=== PATIENT | male | born 1960 | race Caucasian/White ===

== ENCOUNTER → 2023-11-16 10:06 | Outpatient (REF) | payer OTHER, SELFPAY | LOC: DHCBC MAIN 10:06 | PROVIDERS: ATTENDING PHYSICIAN Internal Medicine Cardiovascular Disease; FAMILY PHYSICIAN Family Medicine | DX: I25.5 Ischemic cardiomyopathy (principal); I25.10 Atherosclerotic heart disease of native coronary artery without angina pectoris; E78.5 Hyperlipidemia, unspecified; I25.2 Old myocardial infarction; E78.1 Pure hyperglyceridemia; R00.2 Palpitations; I48.0 Paroxysmal atrial fibrillation | CPT/HCPCS: 93306 ==

== ENCOUNTER 2024-05-13 16:29 | Emergency (ER) | payer SELFPAY ==
[2024-05-13 16:34] VITALS: BP 151/83
--- NOTE | 2024-05-13 17:57 | ED.GENMED ---
History of Present Illness
General
Chief Complaint: Skin Surface Trauma
Source: patient
Exam Limitations: none
Time Seen by Provider: 05/13/24 17:27
Nursing documentation reviewed up to this point in time: agreed with
History of Present Illness
History of Present Illness:
63 y/o M R hand dominant
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
pt is on eliquis for h/o [place]/hld
his bleeding is controlled with dressing
normal ROM
no significant pain
tetanus unknown
Past History
Past History
ED Past Medical History: CAD, Hypercholesterolemia, [place] and Psychiatric (Anxiety)
ED Past Surgical History: Cardiac (stents X 2) and Tonsilectomy
Social History
Tobacco: Non-smoker
Alcohol: None
Drug: None
Personal:
Living: with family
Review of Systems
Review of Systems
Allergies reviewed?: Yes
All Other Systems: Not applicable
Phy Exam
Physical Exam
Physical Exam:
GENERAL: Alert , in no apparent distress
cv: cap refill intact
NEUROLOGICAL: Alert and oriented, no focal neuro deficits, normal sensation and strength
SKIN: Warm and dry,
pt has an oval shpaed skin avulsion to the distal right thumb fingertip, avoiding the nail plate
aprox 0.75 x 0.25 cm
MUSCULOSKELETAL: right thumb skin avulsion
full ROM
PSYCH: Normal and appropriate interaction.
Course
Orders/Labs/Results
Orders:
Orders
05/13/24 17:44
Tetanus/Diphth/Acelpertussis [Adacel] 0.5 ml IM .ONCE ONE
Vital Signs
Initial and Last Documented VS:
Initial Vital Signs
Pulse Resp BP Pulse Ox
72 20 151/83 98
05/13/24 16:34 05/13/24 16:34 05/13/24 16:34 05/13/24 16:34
Last Documented Vital Signs
Pulse Resp BP Pulse Ox
59 20 125/67 98
05/13/24 18:21 05/13/24 16:34 05/13/24 18:21 05/13/24 16:34
MDM/Problems Addressed
Differential Diagnosis Includes:
skin avulsion, laceration, frature
MDM/Problems Addressed:
63 y/o F with righ thand dominance
on eliquis
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
bleeding ctonrolled
pt has some oozing when dressing removed
full ROM
superfiical, not to bone
gel foam dressing applied after irrigation
bleeding controlled
tetanus updated
d/c home
note patient reutrned x 2 after he bled through his dressings
the 1st time i reapplied the gel foam after using a finger tourniquet, pt was observed and then d/c home but didn't get very far before returning with more bleeding again
it was not severe, just soaked somewhat on top of the gauze
this time , i used finger tourniquet and then it was dry, glued it and applied sterristrip and dressing
ptwas obserrved anddid not bleed through
d/c home
*Critical Care Note
Total Time (30-74mins, 75-104mins- exclusive of procedures): Not Applicable
ED Attending Note
-
Portions of this chart may have been created with voice recognition software.� Occasional wrong word or��sound alike� substitutions may have occurred due to the inherent limitations of voice recognition software.
Discharge Plan
Departure
Patient Disposition: Home (Routine Discharge)
Date of Disposition: 05/13/24
Time of Disposition: 18:02
Patient with high blood pressure during this ER visit?: Yes
Covid-19: Not Applicable
Discharge Problem:
Avulsion of skin of right thumb
Instructions: Wound Care (DC)
Prescriptions:
No Action
atorvastatin 40 MG tablet
40 mg PO QPM Qty: 90 3RF
carvedilol 6.25 MG tablet
6.25 mg PO BID Qty: 180 3RF
aspirin 81 MG tablet,chewable
81 mg PO DAILY 0RF
lisinopril 2.5 MG tablet
2.5 mg PO BID Qty: 180 3RF
omega-3 acid ethyl esters [Lovaza] 1 GM capsule
2 cap PO BID
colchicine [Colcrys] 0.6 mg tablet
0.6 mg PO BID 2 Days Qty: 4 0RF
cephalexin 500 mg capsule
500 mg PO QID 5 Days Qty: 20 0RF
Referrals:
Simone Gómez MD [Family Provider] -
Stand Alone Forms: Return to Work
Activity Restrictions/Additional Instructions:
LEAVE THE DRESSING ON FOR 2 DAYS IF YOU CAN.
AVOID GETTING IT WET UNTIL THEN
THEN YOU CAN TAKE TH EDRESSING OFF AND GET YOUR HAND WET NORMALLY
NO WORK FOR TODAY, TOMORROW AND WEDNESDAY UNTIL THE DRESSING IS OFF
RETURN FOR: SEVERE PAIN, SIGNIFICANT BLEEDING, OR ANY CONCNER,S
Interventions
Interventions:
*Risk Screen - Suicide Last Done: 05/13/24 18:18
*General Assessment Last Done: 05/13/24 18:18
*Neglect/Abuse Screening Last Done: 05/13/24 18:18
ED- Fall Risk Assessment Last Done: 05/13/24 18:18
*ED COVID-19 Vaccine History Last Done: 05/13/24 18:18
*Nursing Disposition Last Done: 05/13/24 18:21
ED-Skin Assessment Last Done: 05/13/24 18:16
Discharge Date and Time
Discharge Date/Time: 05/13/24 18:27
Print Language: HEBREW
[2024-05-13] MEDS: ADACEL 0.5 ML IM (18:13)
[2024-05-13 18:17] VITALS: BMI 38.2
[2024-05-13 18:21] VITALS: BP 125/67
== END 2024-05-13 18:27 | disposition home or self-care (01) ==
LOC: EMR 16:29
PROVIDERS: EMERGENCY PHYSICIAN Student in an Organized Health Care Education/Training Program; FAMILY PHYSICIAN Family Medicine
DX: S61.001A Unspecified open wound of right thumb without damage to nail, initial encounter (principal); R03.0 Elevated blood-pressure reading, without diagnosis of hypertension; W31.89XA Contact with other specified machinery, initial encounter; Y93.89 Activity, other specified; Y92.512 Supermarket, store or market as the place of occurrence of the external cause; Y99.0 Civilian activity done for income or pay; Z23 Encounter for immunization; I25.10 Atherosclerotic heart disease of native coronary artery without angina pectoris; E78.00 Pure hypercholesterolemia, unspecified; F41.9 Anxiety disorder, unspecified; I25.2 Old myocardial infarction; Z79.01 Long term (current) use of anticoagulants; Z95.5 Presence of coronary angioplasty implant and graft; Z88.2 Allergy status to sulfonamides; Z91.013 Allergy to seafood
CPT/HCPCS: 99282; 90471; 90715

== ENCOUNTER 2024-12-20 14:01 | Emergency (ER) | payer OTHER, SELFPAY ==
[2024-12-20 14:10] VITALS: BP 122/77
[2024-12-20 14:34] VITALS: BMI 38.0
--- NOTE | 2024-12-20 14:44 | ED.GENMED ---
History of Present Illness
General
Chief Complaint: Heart Rate Problem
Source: patient and spouse
Exam Limitations: none
Time Seen by Provider: 12/20/24 14:23
Nursing documentation reviewed up to this point in time: agreed with
History of Present Illness
History of Present Illness:
64-year-old male with a past medical history as noted presents to the ER for evaluation of palpitations/tachycardia. Patient reports symptoms started this afternoon around 1:30 PM while he was sitting at his desk. He says that he felt palpitations
and some mild lightheadedness. He says that his heart rate was erratic and elevated. Came to the emergency room for assessment with persistent symptoms however since arrival symptoms have improved. Denies any associated chest pain or shortness of
breath. Denies any recent illness. He has some chronic leg swelling but no acute change. He does have a history of CAD status post stents, sees Dr. Ford for cardiology. EKG on arrival shows atrial fibrillation� patient does not believe he has
a history of A-fib but he does take Eliquis 5 mg twice daily 'because Dr. Ford will let me stop it.' He has been seen multiple times in this ER for palpitations/tachycardia but no clear diagnosis of A-fib noted.
Past History
Past History
ED Past Medical History: CAD, Hypercholesterolemia, [place] and Psychiatric (Anxiety)
ED Past Surgical History: Cardiac (stents X 2) and Tonsilectomy
Social History
Tobacco: Non-smoker
Alcohol: None
Drug: None
Personal:
Living: with family
Review of Systems
Review of Systems
All Other Systems: ROS reviewed and negative except as documented in HPI and ROS
Respiratory: Denies trouble breathing
Cardiac: Reports palpitations; Denies chest pain or syncope
ABD/GI: Denies abdominal pain, nausea or vomiting
: Denies flank pain
Musculoskeletal: Denies neck pain or back pain
Neurological: Reports dizzy; Denies headache
Phy Exam
Physical Exam
Physical Exam:
General: Awake, alert, oriented x3; no acute distress
Head: Normocephalic, atraumatic
Eyes: Conjunctiva normal
Throat: Airway intact, handling secretions
Neck: Trachea midline, no JVD
Lungs: Clear to auscultation bilaterally, no wheezing, rales, rhonchi
Heart: Regular rate and rhythm, no murmurs, gallops, or rubs appreciated
Abd: Soft, non distended, nontender
Neuro: No gross deficits
Extremities: Patient has +1 edema in the lower extremities bilaterally
Scores
Heart Failure Risk
Heart Failure Risk Score: Not Applicable
Heart Score for Chest Pain Patients
STEMI patient?: Not applicable
Withdrawal Assessment of Alcohol
Withdrawal Assessment Completed?: Not applicable
Course
Orders/Labs/Results
Orders:
Orders
12/20/24 14:02
EKG [Electrocardiogram (*1)] Urgent
Reason for Study: Tachycardia
EKG- Treatment ONCE
12/20/24 14:42
Electrocardiogram (*1) Urgent
Reason for Study: Tachycardia
EKG- Treatment ONCE
12/20/24 14:44
Complete Blood Count/With Diff Urgent
Comprehensive Metabolic Panel Urgent
TSH Reflex To Free T4 Urgent
Abnormal Lab Results
12/20/24
14:44
RBC 4.35 L 10^6/uL
(4.70-6.10)
MCH 32.9 H pg
(27.0-31.0)
Monocytes % 12.5 H %
(1.7-9.3)
Carbon Dioxide 31 H mmol/L
(22-30)
Glucose 103 H mg/dl
(70-99)
12/20/24 14:44
12/20/24 14:44
Vital Signs
Initial and Last Documented VS:
Initial Vital Signs
Pulse Resp BP Pulse Ox
62 16 122/77 99
12/20/24 14:10 12/20/24 14:10 12/20/24 14:10 12/20/24 14:10
Last Documented Vital Signs
Pulse Resp BP Pulse Ox
61 15 106/60 98
12/20/24 15:15 12/20/24 15:15 12/20/24 15:00 12/20/24 15:15
MDM/Problems Addressed
Differential Diagnosis Includes:
Atrial fibrillation
MDM/Problems Addressed:
64-year-old male presents to the emergency room for evaluation of palpitations and tachycardia today. Symptoms seem to have resolved here in the emergency room. Vital signs normal here. Physical exam as above. His EKG from triage appears to show
A-fib with controlled ventricular rate. It sounds like this is a new diagnosis for him although he is on Eliquis already and takes Coreg 12.5 mg twice daily. Will send basic screening labs and observe on telemetry. Discussed with
cardiology�converted spontaneously to sinus rhythm and heart rate 50s to 60s here, will hold on any adjustments to his medications. Follow-up as an outpatient in the office if labs are reassuring.
Labs reviewed: CBC and CMP no clinically significant abnormalities. Patient in sinus rhythm rate in the 60s. Stable for discharge follow-up with cardiology as an outpatient.
*Pulse Oximetry
Patient hypoxic: no
*EKG
Interpreted by ED Provider?: Yes
Heart Rate: 88
Rate: normal
Rhythm: sinus
[place]: left axis deviation
Interval: normal interval
QRS Pattern: other (Left anterior fascicular block)
Ischemia: no ischemia
*Critical Care Note
Total Time (30-74mins, 75-104mins- exclusive of procedures): Not Applicable
Data Reviewed
Review of Other/Old Records Reveals: Labs and Records
Source: patient and spouse
Patient Management
Discussion with other providers: Investigation Manager (Discussed with cardiology)
ED Attending Note
-
Portions of this chart may have been created with voice recognition software.� Occasional wrong word or��sound alike� substitutions may have occurred due to the inherent limitations of voice recognition software.
Discharge Plan
Departure
Patient Disposition: Home (Routine Discharge)
Date of Disposition: 12/20/24
Time of Disposition: 15:30
Patient with high blood pressure during this ER visit?: No
Discharge Problem:
Atrial fibrillation
Instructions: Atrial Fibrillation (DC)
Prescriptions:
No Action
atorvastatin 40 MG tablet
40 mg PO QPM Qty: 90 3RF
carvedilol 6.25 MG tablet
6.25 mg PO BID Qty: 180 3RF
aspirin 81 MG tablet,chewable
81 mg PO DAILY 0RF
lisinopril 2.5 MG tablet
2.5 mg PO BID Qty: 180 3RF
omega-3 acid ethyl esters [Lovaza] 1 GM capsule
2 cap PO BID
colchicine [Colcrys] 0.6 mg tablet
0.6 mg PO BID 2 Days Qty: 4 0RF
cephalexin 500 mg capsule
500 mg PO QID 5 Days Qty: 20 0RF
Referrals:
Riley Ford MD [Active] - Call in 1-3 days for appt
Activity Restrictions/Additional Instructions:
Thank you for visiting the Emergency Department at [facility].
1. Please schedule a follow up appointment as directed. Call first thing tomorrow morning to make an appointment.
2. If indicated, please take your medications as instructed and indicated on discharge paperwork.
3. If any of your symptoms do not improve, or persist, or become more severe within 6-12 hours, please return to the emergency department for further care.
4. Please return to the emergency department if you develop a headache, neck pain/stiffness, fever greater than 100.4F, chest pain, shortness of breath, persistent nausea, vomiting, slurred speech, difficulty walking, numbness/tingling, weakness,
signs of infection or any other symptoms that are worrisome to you.
Please call [phone] if you have any questions.
Interventions
Interventions:
*Risk Screen - Suicide Last Done: 12/20/24 14:37
*General Assessment Last Done: 12/20/24 14:37
*Neglect/Abuse Screening Last Done: 12/20/24 14:37
*ED- Fall Risk Assessment Last Done: 12/20/24 14:37
*ED COVID-19 Vaccine History Last Done: 12/20/24 14:37
ED- Cardiac Assessment Last Done: 12/20/24 14:45
ED- Pulmonary Assessment Last Done: 12/20/24 14:45
Discharge Date and Time
Print Language: CHINESE
[2024-12-20 14:57] LABS: Hematocrit 40.7 % (39.0-52.0); Hemoglobin 14.3 g/dL (13.0-18.0); Mean Corp Hgb Conc. 35.1 g/dL (33.0-37.0); Mean Corpuscular Hgb 32.9 pg (27.0-31.0); Mean Corpuscular Volume 93.6 fL (80.0-94.0); Mean Platelet Volume 9.6 fL (7.4-10.4); Platelet Count 148 10^3/uL (130-400); Red Blood Cell Count 4.35 10^6/uL (4.70-6.10); Red Cell Dist. Width 13.7 % (11.5-14.5); White Blood Cell Count 4.9 10^3/uL (4.8-10.8)
[2024-12-20 15:00] VITALS: BP 106/60
[2024-12-20 15:17] LABS: ALT (SGPT) 43 U/L (0-50); AST (SGOT) 40 U/L (17-59); Albumin 3.9 g/dl (3.5-5.0); Alkaline Phosphatase 73 U/L (38-126); Blood Urea Nitrogen 20 mg/dl (9-20); Calcium 9.6 mg/dl (8.4-10.2); Carbon Dioxide 31 mmol/L (22-30); Chloride 104 mmol/L (98-107); Estimated Creatinine Clearance 110 ml/min; Glucose 103 mg/dl (70-99); Potassium 4.5 mmol/L (3.5-5.1); Sodium 141 mmol/L (135-145); Total Bilirubin 1.3 mg/dl (0.2-1.3); Total Protein 6.6 g/dl (6.3-8.2); eGFR > 60.00
[2024-12-20 15:26] LABS: % Basophils 0.6 % (0-2); % Eosinophils 4.9 % (0-6); % Immature Granulocytes 0.2 % (0-0.5); % Lymphocytes 30.1 % (20.5-51.1); % Monocytes 12.5 % (1.7-9.3); % Neutrophils 51.7 % (42.2-75.2); Absolute Eosinophils 0.2 10^3/uL (0-0.7); Absolute Lymphocytes 1.5 10^3/uL (1.2-3.4); Absolute Monocytes 0.6 10^3/uL (0.1-0.6); Absolute Neutrophils 2.5 10^3/uL (1.4-6.5); Nucleated Red Blood Cells % 0 % (-)
[2024-12-20 16:00] LABS: TSH Reflex To Free T4 1.85 uIU/ml (0.47-4.68)
== END 2024-12-20 15:58 | disposition home or self-care (01) ==
LOC: EMR 14:01
PROVIDERS: EMERGENCY PHYSICIAN Emergency Medicine
DX: I48.91 Unspecified atrial fibrillation (principal); I25.10 Atherosclerotic heart disease of native coronary artery without angina pectoris; E78.00 Pure hypercholesterolemia, unspecified; I25.2 Old myocardial infarction; Z95.5 Presence of coronary angioplasty implant and graft; Z79.01 Long term (current) use of anticoagulants; Z79.899 Other long term (current) drug therapy
CPT/HCPCS: 99284; 80053; 84443; 85025; 93005

== ENCOUNTER 2025-03-06 16:45 | Emergency (ER) | payer OTHER, SELFPAY ==
[2025-03-06] VITALS (7 sets, daily range): BP systolic 100–128; BP diastolic 70–75
--- NOTE | 2025-03-06 17:07 | ED.GENMED ---
History of Present Illness
General
Chief Complaint: Heart Rate Problem
Source: patient
Exam Limitations: none
Time Seen by Provider: 03/06/25 17:02
Nursing documentation reviewed up to this point in time: agreed with
History of Present Illness
History of Present Illness:
Patient to ED with complaint of racing heart on and off 'for the past few hours'. Feels some chest tightness but no pain. To ED accompanied by spouse. Denes any SOB, dizziness
Past History
Past History
ED Past Medical History: CAD, Hypercholesterolemia, [place] and Psychiatric (Anxiety)
ED Past Surgical History: Cardiac (stents X 2) and Tonsilectomy
Social History
Tobacco: Non-smoker
Alcohol: None
Drug: None
Personal:
Living: with family
Review of Systems
Review of Systems
Allergies reviewed?: Yes
All Other Systems: ROS reviewed and negative except as documented in HPI and ROS
Constitutional: Reports no symptoms
EENT: Reports no symptoms
Respiratory: Reports no symptoms
Cardiac: Reports other (heart racing intermittently on and off for the past few hours.)
ABD/GI: Reports no symptoms
: Reports no symptoms
Musculoskeletal: Reports no symptoms
Skin: Reports no symptoms
Neurological: Reports no symptoms
Psychiatric: Reports no symptoms
Phy Exam
General Physical Exam
General Presentation: well appearing and no apparent distress
General age: appears stated age
General Skin: warm and dry
General Habitus: normal
General Mental: alert
General Hydration: appears well hydrated
Cardiovascular Exam
Cardiovascular Exam: regular rate/rhythm
Pulmonary Exam
Pulmonary Exam: lungs clear and no respiratory distress
Musculoskeletal Exam
Musculoskeletal Exam: full ROM and neuro vasc intact
Skin Exam
Skin Exam: normal color, warm/dry and no rash
Course
Orders/Labs/Results
Orders:
Orders
03/06/25 16:48
Electrocardiogram (*1) Urgent
Reason for Study: Palpitations
EKG- Treatment ONCE
03/06/25 17:21
Complete Blood Count/With Diff Urgent
Comprehensive Metabolic Panel Urgent
Troponin I Urgent
03/06/25 20:01
Electrocardiogram (*1) Urgent
Reason for Study: Palpitations
03/06/25 20:02
EKG- Treatment ONCE
03/06/25 20:09
Troponin I Urgent
Abnormal Lab Results
03/06/25
17:21
RBC 4.34 L 10^6/uL
(4.70-6.10)
MCH 32.9 H pg
(27.0-31.0)
Glucose 131 H mg/dl
(70-99)
03/06/25 17:21
03/06/25 17:21
Vital Signs
Initial and Last Documented VS:
Initial Vital Signs
Temp Pulse Resp BP Pulse Ox
97.8 F 73 16 121/75 96
03/06/25 16:49 03/06/25 16:49 03/06/25 16:49 03/06/25 16:49 03/06/25 16:49
Last Documented Vital Signs
Temp Pulse Resp BP Pulse Ox
97.8 F 64 19 128/73 97
03/06/25 16:49 03/06/25 22:00 03/06/25 22:00 03/06/25 22:00 03/06/25 21:45
*Radiology
Radiology exam reviewed: radiology read reviewed
*Pulse Oximetry
Patient hypoxic: no
*EKG
Interpretation: normal
Rate: normal
Rhythm: sinus
*Critical Care Note
Total Time (30-74mins, 75-104mins- exclusive of procedures): Not Applicable
Update Note
Update Note:
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 Remains in NSR with occassional PAC. Labs reviewed, no concerning findings, Troponin neg. x 2. He is discharged home and will
follow up with PCP and cardiology. Given instructions on s/s to return to ED and he is agreeable to plan.
ED Attending Note
-
Portions of this chart may have been created with voice recognition software.� Occasional wrong word or��sound alike� substitutions may have occurred due to the inherent limitations of voice recognition software.
Discharge Plan
Departure
Patient Disposition: Home (Routine Discharge)
Date of Disposition: 03/06/25
Time of Disposition: 21:50
Patient with high blood pressure during this ER visit?: No
Condition: Good
Covid-19: Not Applicable
Discharge Problem:
Palpitations
Instructions: Palpitations - ED discharge instructions
Prescriptions:
No Action
atorvastatin 40 MG tablet
40 mg PO QPM Qty: 90 3RF
carvedilol 6.25 MG tablet
6.25 mg PO BID Qty: 180 3RF
aspirin 81 MG tablet,chewable
81 mg PO DAILY 0RF
lisinopril 2.5 MG tablet
2.5 mg PO BID Qty: 180 3RF
omega-3 acid ethyl esters [Lovaza] 1 GM capsule
2 cap PO BID
colchicine [Colcrys] 0.6 mg tablet
0.6 mg PO BID 2 Days Qty: 4 0RF
cephalexin 500 mg capsule
500 mg PO QID 5 Days Qty: 20 0RF
Referrals:
[facility] [Other]
Referral Note: Physician referral line
Simone Gómez MD [Family Provider, Family Practice]
Activity Restrictions/Additional Instructions:
Return to the emergency department immediately for any changes in/worsening of your symptoms.
Interventions
Interventions:
*Risk Screen - Suicide Last Done: 03/06/25 16:49
*General Assessment Last Done: 03/06/25 17:10
*Neglect/Abuse Screening Last Done: 03/06/25 16:49
*ED- Fall Risk Assessment Last Done: 03/06/25 17:10
*ED COVID-19 Vaccine History Last Done: 03/06/25 17:10
*Nursing Disposition Last Done: 03/06/25 22:30
ED- Cardiac Assessment Last Done: 03/06/25 17:09
ED- Pulmonary Assessment Last Done: 03/06/25 17:09
Discharge Date and Time
Discharge Date/Time: 03/06/25 22:31
Print Language: LATVIAN
[2025-03-06 17:29] LABS: % Basophils 0.9 % (0-2); % Eosinophils 2.5 % (0-6); % Immature Granulocytes 0.2 % (0-0.5); % Lymphocytes 27.3 % (20.5-51.1); % Monocytes 8.1 % (1.7-9.3); Absolute Basophils 0.1 10^3/uL (0-0.2); Absolute Eosinophils 0.1 10^3/uL (0-0.7); Absolute Lymphocytes 1.6 10^3/uL (1.2-3.4); Absolute Monocytes 0.5 10^3/uL (0.1-0.6); Absolute Neutrophils 3.5 10^3/uL (1.4-6.5); Hematocrit 39.8 % (39.0-52.0); Hemoglobin 14.3 g/dL (13.0-18.0); Mean Corp Hgb Conc. 35.9 g/dL (33.0-37.0); Mean Corpuscular Hgb 32.9 pg (27.0-31.0); Mean Corpuscular Volume 91.7 fL (80.0-94.0); Mean Platelet Volume 9.9 fL (7.4-10.4); Nucleated Red Blood Cells % 0 % (-); Platelet Count 170 10^3/uL (130-400); Red Blood Cell Count 4.34 10^6/uL (4.70-6.10); Red Cell Dist. Width 13.9 % (11.5-14.5); White Blood Cell Count 5.7 10^3/uL (4.8-10.8)
[2025-03-06 17:55] LABS: ALT (SGPT) 41 U/L (0-50); AST (SGOT) 36 U/L (17-59); Albumin 4.2 g/dl (3.5-5.0); Alkaline Phosphatase 71 U/L (38-126); Blood Urea Nitrogen 20 mg/dl (9-20); Calcium 9.9 mg/dl (8.4-10.2); Carbon Dioxide 27 mmol/L (22-30); Chloride 105 mmol/L (98-107); Glucose 131 mg/dl (70-99); Potassium 4.3 mmol/L (3.5-5.1); Sodium 138 mmol/L (135-145); Total Bilirubin 1.2 mg/dl (0.2-1.3); Total Protein 6.9 g/dl (6.3-8.2); eGFR > 60.00
[2025-03-06 18:07] LABS: Troponin I < 0.012 ng/ml
[2025-03-06 20:42] LABS: Troponin I < 0.012 ng/ml
== END 2025-03-06 22:31 | disposition home or self-care (01) ==
LOC: EMR 16:45
PROVIDERS: Nurse Practitioner; EMERGENCY PHYSICIAN Student in an Organized Health Care Education/Training Program; FAMILY PHYSICIAN Family Medicine
DX: R00.2 Palpitations (principal); I49.3 Ventricular premature depolarization; I25.10 Atherosclerotic heart disease of native coronary artery without angina pectoris; E78.00 Pure hypercholesterolemia, unspecified; Z95.5 Presence of coronary angioplasty implant and graft
CPT/HCPCS: 99284; 80053; 84484; 85025; 93005

== ENCOUNTER 2025-04-04 15:56 | Emergency (ER) | payer OTHER, SELFPAY ==
[2025-04-04 16:02] VITALS: BP 124/76
[2025-04-04 17:11] VITALS: BMI 37.2
[2025-04-04 17:13] VITALS: BP 115/73
[2025-04-04 18:00] VITALS: BP 118/72
[2025-04-04 18:20] LABS: Hematocrit 40.3 % (39.0-52.0); Hemoglobin 14.2 g/dL (13.0-18.0); Mean Corp Hgb Conc. 35.2 g/dL (33.0-37.0); Mean Corpuscular Volume 91.8 fL (80.0-94.0); Nucleated Red Blood Cells % 0 % (-); Platelet Count 157 10^3/uL (130-400); Red Cell Dist. Width 13.6 % (11.5-14.5)
[2025-04-04 18:33] LABS: ALT (SGPT) 42 U/L (0-50); AST (SGOT) 43 U/L (17-59); Albumin 4.1 g/dl (3.5-5.0); Alkaline Phosphatase 70 U/L (38-126); Blood Urea Nitrogen 18 mg/dl (9-20); Calcium 9.3 mg/dl (8.4-10.2); Carbon Dioxide 26 mmol/L (22-30); Chloride 106 mmol/L (98-107); Estimated Creatinine Clearance 108 ml/min; Glucose 104 mg/dl (70-99); Potassium 4.3 mmol/L (3.5-5.1); Sodium 138 mmol/L (135-145); Total Protein 6.7 g/dl (6.3-8.2); eGFR > 60.00
[2025-04-04 18:49] LABS: Troponin I < 0.012 ng/ml
[2025-04-04 19:00] VITALS: BP 114/79
--- NOTE | 2025-04-04 19:19 | ED.GENMED ---
History of Present Illness
General
Chief Complaint: Cardiac Symptoms
Source: patient
Exam Limitations: none
Time Seen by Provider: 04/04/25 17:31
Nursing documentation reviewed up to this point in time: agreed with
History of Present Illness
History of Present Illness:
Patient to ED with complaint episode of rapid heart rate. States HR measuring in the 130's. Lasted approx 30 minutes He has had these episodes in the past. Has been evaluated for this before. No findings to explain his symptoms. He was advised
to follow upw [facility] cardiology. He has an appointment in approx 2 weeks. 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 No associated cp/pressure, SOB. Denies fever/chills. To ED accompanied by spouse.
Past History
Past History
ED Past Medical History: CAD, Hypercholesterolemia, [place] and Psychiatric (Anxiety)
ED Past Surgical History: Cardiac (stents X 2) and Tonsilectomy
Social History
Tobacco: Non-smoker
Alcohol: None
Drug: None
Personal:
Living: with family
Review of Systems
Review of Systems
Allergies reviewed?: Yes
All Other Systems: ROS reviewed and negative except as documented in HPI and ROS
Constitutional: Reports no symptoms
EENT: Reports no symptoms
Respiratory: Reports no symptoms
Cardiac: Reports other (episode of rapid heart rate)
ABD/GI: Reports no symptoms
: Reports no symptoms
Musculoskeletal: Reports no symptoms
Skin: Reports no symptoms
Neurological: Reports no symptoms
Psychiatric: Reports no symptoms
Phy Exam
General Physical Exam
General Presentation: well appearing
General age: appears stated age
General Skin: warm and dry
General Habitus: normal
General Mental: alert
Cardiovascular Exam
Cardiovascular Exam: regular rate/rhythm and no edema
Pulmonary Exam
Pulmonary Exam: lungs clear and no respiratory distress
Musculoskeletal Exam
Musculoskeletal Exam: full ROM and neuro vasc intact
Skin Exam
Skin Exam: normal color, warm/dry and no rash
Psychiatric Exam
Psychiatric Exam: normal mood/affect
Course
Orders/Labs/Results
Orders:
Orders
04/04/25 15:57
EKG [Electrocardiogram (*1)] Urgent
Reason for Study: Chest Pain
EKG- Treatment ONCE
04/04/25 18:11
Complete Blood Count/With Diff Urgent
Comprehensive Metabolic Panel Urgent
TSH Reflex To Free T4 Urgent
Troponin I Urgent
Abnormal Lab Results
04/04/25
18:11
RBC 4.39 L 10^6/uL
(4.70-6.10)
MCH 32.3 H pg
(27.0-31.0)
Glucose 104 H mg/dl
(70-99)
04/04/25 18:11
04/04/25 18:11
Vital Signs
Initial and Last Documented VS:
Initial Vital Signs
Temp Pulse Resp BP Pulse Ox
98.7 F 76 17 124/76 99
04/04/25 16:02 04/04/25 16:02 04/04/25 16:02 04/04/25 16:02 04/04/25 16:02
Last Documented Vital Signs
Temp Pulse Resp BP Pulse Ox
98.1 F 64 20 114/79 95
04/04/25 20:05 04/04/25 20:05 04/04/25 20:05 04/04/25 20:05 04/04/25 20:10
*Pulse Oximetry
SaO2: 95
Oxygen Mode of Delivery: Room air
Patient hypoxic: no
*Critical Care Note
Total Time (30-74mins, 75-104mins- exclusive of procedures): Not Applicable
Update Note
Update Note:
Patient to ED wtih complaint of rapid heart rate x 30 minutes. No associated symptoms, resolved without intervention. Labs today without concerning findings. EKG NSR. No episodes of tachycardia while in ED. WIll discharge home, continue with
plan for cardiology followup WIll call office in AM to move appt up. given instructions on s/s to return to ED and he is agreeable to plan.
ED Attending Note
-
Portions of this chart may have been created with voice recognition software.� Occasional wrong word or��sound alike� substitutions may have occurred due to the inherent limitations of voice recognition software.
Discharge Plan
Departure
Patient Disposition: Home (Routine Discharge)
Date of Disposition: 04/04/25
Time of Disposition: 19:17
Patient with high blood pressure during this ER visit?: No
Condition: Good
Covid-19: Not Applicable
Discharge Problem:
Tachycardia
Instructions: Tachycardia
Prescriptions:
No Action
atorvastatin 40 MG tablet
40 mg PO QPM Qty: 90 3RF
carvedilol 6.25 MG tablet
6.25 mg PO BID Qty: 180 3RF
aspirin 81 MG tablet,chewable
81 mg PO DAILY 0RF
lisinopril 2.5 MG tablet
2.5 mg PO BID Qty: 180 3RF
omega-3 acid ethyl esters [Lovaza] 1 GM capsule
2 cap PO BID
colchicine [Colcrys] 0.6 mg tablet
0.6 mg PO BID 2 Days Qty: 4 0RF
cephalexin 500 mg capsule
500 mg PO QID 5 Days Qty: 20 0RF
Referrals:
Simone Gómez MD [Family Provider, Family Practice]
Activity Restrictions/Additional Instructions:
Follow up with cardiology as scheduled. Return to the emergency department immediately for any changes in/worsening of your symptoms
Interventions
Interventions:
*Risk Screen - Suicide Last Done: 04/04/25 16:03
*General Assessment Last Done: 04/04/25 16:03
*Neglect/Abuse Screening Last Done: 04/04/25 16:03
*ED- Fall Risk Assessment Last Done: 04/04/25 17:11
*ED COVID-19 Vaccine History Last Done: 04/04/25 16:03
*Nursing Disposition Last Done: 04/04/25 20:10
ED- Pulmonary Assessment Last Done: 04/04/25 20:06
ED- Cardiac Assessment Last Done: 04/04/25 20:06
Discharge Date and Time
Discharge Date/Time: 04/04/25 20:11
Print Language: [place]
[2025-04-04 20:05] VITALS: BP 114/79
== END 2025-04-04 20:11 | disposition home or self-care (01) ==
LOC: EMR 15:56
PROVIDERS: Nurse Practitioner; EMERGENCY PHYSICIAN Emergency Medicine; FAMILY PHYSICIAN Family Medicine
DX: R00.0 Tachycardia, unspecified (principal); I25.10 Atherosclerotic heart disease of native coronary artery without angina pectoris; E78.00 Pure hypercholesterolemia, unspecified; F41.9 Anxiety disorder, unspecified; I25.2 Old myocardial infarction; Z95.5 Presence of coronary angioplasty implant and graft; Z79.82 Long term (current) use of aspirin; Z88.2 Allergy status to sulfonamides; Z91.013 Allergy to seafood
CPT/HCPCS: 99283; 80053; 84443; 84484; 85025; 93005

== ENCOUNTER 2025-04-29 20:13 | Emergency (ER) | payer OTHER, SELFPAY ==
[2025-04-29 20:16] VITALS: BP 112/64
[2025-04-29 20:40] VITALS: BP 118/67
[2025-04-29 20:49] LABS: Hematocrit 36.8 % (39.0-52.0); Hemoglobin 13.0 g/dL (13.0-18.0); Mean Corp Hgb Conc. 35.3 g/dL (33.0-37.0); Mean Corpuscular Volume 92.0 fL (80.0-94.0); Nucleated Red Blood Cells % 0 % (-); Platelet Count 156 10^3/uL (130-400); Red Cell Dist. Width 13.7 % (11.5-14.5)
[2025-04-29 21:00] VITALS: BP 120/63
[2025-04-29 21:01] LABS: ALT (SGPT) 36 U/L (0-50); AST (SGOT) 34 U/L (17-59); Albumin 4.0 g/dl (3.5-5.0); Alkaline Phosphatase 66 U/L (38-126); Blood Urea Nitrogen 17 mg/dl (9-20); Calcium 9.4 mg/dl (8.4-10.2); Carbon Dioxide 30 mmol/L (22-30); Chloride 105 mmol/L (98-107); Glucose 145 mg/dl (70-99); Potassium 4.4 mmol/L (3.5-5.1); Sodium 138 mmol/L (135-145); Total Protein 6.4 g/dl (6.3-8.2); eGFR > 60.00
[2025-04-29 21:13] LABS: Troponin I < 0.012 ng/ml
[2025-04-29 22:00] VITALS: BP 108/66
[2025-04-29 23:18] VITALS: BP 112/63
[2025-04-30] VITALS: BP 109/64
[2025-04-30 00:27] LABS: Troponin I < 0.012 ng/ml
[2025-04-30 01:00] VITALS: BP 122/67
[2025-04-30 01:40] VITALS: BP 119/68
--- NOTE | 2025-04-30 01:40 | ED.GENMED ---
History of Present Illness
General
Chief Complaint: Chest Pain
Source: patient and spouse
Time Seen by Provider: 04/29/25 21:18
History of Present Illness
History of Present Illness:
Note:
CHIEF COMPLAINT(S)
Chest discomfort, shoulder pain, lightheadedness, and sweating.
HISTORY OF PRESENT ILLNESS
The patient is a 64-year-old male with a history of coronary artery disease and previous heart attack seven years ago, who presented with symptoms of chest congestion, back and shoulder soreness, lightheadedness, and sweating that occurred while
performing physical activities at work. 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 The patient reports a heart rate of 145 beats per minute at 1:15 PM earlier in the day but noted his heart rate
felt steady during the evenings episode. The symptoms persisted until the patient returned home, where he took nitroglycerin, which relieved his symptoms after approximately 45 minutes to an hour.
The patient recalls a history of atrial fibrillation incident two weeks prior, for which he wore a heart monitor, recently returned to the provider. He reports persistent shoulder soreness, speculating it might be due to deconditioning. He mentions
his concern that the current symptoms differ from his previous heart attack experience, as he did not experience typical chest pressure or arm pain but had difficulty stopping sweating.
EXTERNAL RECORDS REVIEWED
The patient mentioned having undergone heart monitoring recently due to an episode of atrial fibrillation.
CHRONIC MEDICAL CONDITIONS SIGNIFICANTLY AFFECTING CARE
History of coronary artery disease and previous myocardial infarction.
REVIEW OF SYSTEMS
- Cardiovascular: Chest congestion, heart racing episode earlier in the day, shoulder soreness, lightheadedness, and sweating.
- Musculoskeletal: Back and shoulder soreness noted during physical exertion at work.
- Neurological: Lightheadedness during the episode.
PHYSICAL EXAM
General: Alert, no acute distress.
Skin: Warm, dry.
Head: Normocephalic, atraumatic.
Neck: Supple, trachea midline.
Eye, Ears, Nose, Mouth, and Throat: Oral mucosa moist.
Cardiovascular: Regular rhythm with a 2/6 systolic ejection murmur noted; no edema or jugular venous distension.
Respiratory: Lungs clear to auscultation, no wheezing or rales.
Gastrointestinal: Mild tenderness to palpation noted, specifically with pressure application, no distension.
Back: Normal range of motion, Normal alignment.
Musculoskeletal: Normal ROM, normal strength, shoulder soreness.
Neurological: Alert and oriented to person, place, time, and situation; no focal neurological deficits observed.
Psychiatric: Cooperative, appropriate mood & affect.
PROBLEM LIST
Acute:
- Chest discomfort
- Lightheadedness
- Sweating
- Shoulder and back soreness
Chronic:
- Coronary artery disease
- History of myocardial infarction
PLAN
Monitor heart enzyme levels, repeating the test after a couple of hours to ensure no changes indicating cardiac complications. Review and compare the results with old records to formulate a safe treatment plan, in consultation with the patients
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 Ford, or his colleagues.
DIFFERENTIAL DIAGNOSIS
The Differential Diagnosis includes, in no particular order and is not limited to:
1. Acute coronary syndrome
2. Angina pectoris
3. Atrial fibrillation
4. Musculoskeletal strain
5. Heart failure exacerbation
6. Panic attack
7. Myocarditis
8. Pericarditis
9. Pulmonary embolism
10. Gastroesophageal reflux disease
EKG
My independent EKG interpretation is:
- Rhythm: Normal sinus rhythm
- Heart rate: 64 beats per minute
- Notable intervals and durations: No specific intervals or durations mentioned
- [place]: Left anterior fascicular block
- Abnormalities: No significant changes compared to prior EKG, no Q waves noted
Disposition:
SUMMARY OF ENCOUNTER
The patient is a 64-year-old male with a history of coronary artery disease who presented to the emergency department with symptoms of chest tightness and shortness of breath. Initial and repeat troponin levels were normal, and his comprehensive
metabolic panel (CMP) and complete blood count (CBC) were also normal. His vital signs were stable, and he appeared well. Given his close follow-up with cardiology, it was determined that discharge with outpatient follow-up was reasonable. The
patient was informed about the reasons for returning to the ED if necessary.
DISPOSITION
Discharge with outpatient follow-up.
ASSESSMENT
The patients presentation suggests stable coronary artery disease without acute changes, given the normal troponin levels and overall stable examination findings.
PLAN
Discharge the patient with instructions to follow up with their weigh machine operator. Connect him with the outpatient chest pain follow-up hotline and queen's counsel on reasons for returning.
INDEPENDENT REVIEW OF LABS AND INTERPRETATION OF TESTS
My independent review of the Comprehensive Metabolic Panel (CMP) indicates normal results.
My independent review of the Complete Blood Count (CBC) indicates normal results.
My independent review of the troponin tests indicates normal levels on both initial and repeat tests.
PATIENT EDUCATION AND COUNSELING
The patient was counseled on the importance of monitoring symptoms and reasons to return to the emergency department, including any new or worsening chest pain, shortness of breath, or other concerning symptoms.
FOLLOW-UP INSTRUCTIONS
The patient is advised to follow up with his weigh machine operator and to use the provided outpatient chest pain follow-up hotline.
MEDICATION RECONCILIATION
No new medications were prescribed or administered during the visit.
MEDICAL DECISION MAKING
-Complexity of Data Reviewed: Chronic conditions affecting care include coronary artery disease and history of atrial fibrillation. The differential diagnosis list includes acute coronary syndrome, angina pectoris, atrial fibrillation,
musculoskeletal strain, heart failure exacerbation, panic attack, myocarditis, pericarditis, pulmonary embolism, and gastroesophageal reflux disease.
-Data:
Category 1
My independent interpretation of the laboratory tests including CBC and CMP, with both indicating normal results. The patients normal troponin levels were also reviewed.
Category 2
Clinical information was obtained from an independent historian based on the review of prior external records, which revealed a history of atrial fibrillation.
-Risk:
Consideration of Admission/Observation: Escalation of care including admission/observation was considered given the complexity and risk of the patients presenting complaint, exam findings, and their underlying comorbidities. However, ultimately I
feel the patient is safe for outpatient management with close follow-up. Reasoning: Work-up reassuring, does not reveal any acute life/organ threatening processes, patients symptoms well controlled upon reevaluation, reexamination is reassuring,
vitals are stable, patient agreeable with discharge, reliable for follow-up.
DIAGNOSIS
- Stable coronary artery disease (ICD-10-CM: I25.10)
- History of atrial fibrillation (ICD-10-CM: I48.91)
Past History
Past History
ED Past Medical History: CAD, Hypercholesterolemia, [place] and Psychiatric (Anxiety)
ED Past Surgical History: Cardiac (stents X 2) and Tonsilectomy
Social History
Tobacco: Non-smoker
Alcohol: None
Drug: None
Personal:
Living: with family
Phy Exam
Physical Exam
Physical Exam:
.
Scores
Heart Score for Chest Pain Patients
STEMI patient?: No
History: Moderately Suspicious
ECG: Nonspecific Repolarization
Age: >45 - <65 years
Risk Factors: >/= 3 Risk Factors or History of CAD
Troponin: </= Normal Limit
Heart Score for Chest Pain Patients: 5
Heart Score Risk: 20.3% MACE over next 6 weeks
Course
Orders/Labs/Results
Orders:
Orders
04/29/25 20:13
EKG [Electrocardiogram (*1)] Urgent
Reason for Study: Chest Pain
EKG- Treatment ONCE
04/29/25 20:38
Complete Blood Count/With Diff Urgent
Comprehensive Metabolic Panel Urgent
Troponin I Urgent
04/29/25 22:30
CR Chest - 2 Views Urgent
Comment:
Reason For Exam: cp
04/29/25 23:46
Troponin I Urgent
04/30/25 01:09
Electrocardiogram (*1) Urgent
Reason for Study: Chest Pain
EKG- Treatment ONCE
Abnormal Lab Results
04/29/25
20:38
RBC 4.00 L 10^6/uL
(4.70-6.10)
Hct 36.8 L %
(39.0-52.0)
MCH 32.5 H pg
(27.0-31.0)
Glucose 145 H mg/dl
(70-99)
04/29/25 20:38
04/29/25 20:38
Vital Signs
Initial and Last Documented VS:
Initial Vital Signs
Temp Pulse Resp BP Pulse Ox
97.8 F 66 26 112/64 95
04/29/25 20:16 04/29/25 20:16 04/29/25 20:16 04/29/25 20:16 04/29/25 20:16
Last Documented Vital Signs
Temp Pulse Resp BP Pulse Ox
97.8 F 53 20 119/68 97
04/29/25 20:16 04/30/25 01:41 04/30/25 01:41 04/30/25 01:41 04/30/25 01:42
*Pulse Oximetry
SaO2: 97
Oxygen Mode of Delivery: Room air
Patient hypoxic: no
*Critical Care Note
Total Time (30-74mins, 75-104mins- exclusive of procedures): Not Applicable
ED Attending Note
-
Portions of this chart may have been created with voice recognition software.� Occasional wrong word or��sound alike� substitutions may have occurred due to the inherent limitations of voice recognition software.
Discharge Plan
Departure
Patient Disposition: Home (Routine Discharge)
Date of Disposition: 04/30/25
Time of Disposition: 01:40
Patient with high blood pressure during this ER visit?: No
Discharge Problem:
Chest pain
Instructions: Chest Pain CBC Follow Up
Prescriptions:
No Action
atorvastatin 40 MG tablet
40 mg PO QPM Qty: 90 3RF
carvedilol 6.25 MG tablet
6.25 mg PO BID Qty: 180 3RF
aspirin 81 MG tablet,chewable
81 mg PO DAILY 0RF
lisinopril 2.5 MG tablet
2.5 mg PO BID Qty: 180 3RF
omega-3 acid ethyl esters [Lovaza] 1 GM capsule
2 cap PO BID
colchicine [Colcrys] 0.6 mg tablet
0.6 mg PO BID 2 Days Qty: 4 0RF
cephalexin 500 mg capsule
500 mg PO QID 5 Days Qty: 20 0RF
Referrals:
NONE,* [Family Provider, Internal Medicine]
Activity Restrictions/Additional Instructions:
Please take 81 mg of aspirin a day. Please avoid strenuous or exertional activity until cleared by cardiology. Please see cardiology in the next 48 hours for reevaluation. Return immediately for worsening pain, shortness breath, palpitations,
sweating, nausea, weakness of any kind, numbness, tingling or any other concerns.
Cardiology has been notified and a follow up appointment has been requested. Someone will call you on the next business day to schedule a follow up appointment.
Interventions
Interventions:
*Risk Screen - Suicide Last Done: 04/29/25 20:16
*Neglect/Abuse Screening Last Done: 04/29/25 20:16
*Nursing Disposition Last Done: 04/30/25 01:46
ED- Cardiac Assessment Last Done: 04/29/25 20:40
Discharge Date and Time
Discharge Date/Time: 04/30/25 01:46
Print Language: JAPANESE
[2025-04-30 01:41] VITALS: BP 119/68
== END 2025-04-30 01:46 | disposition home or self-care (01) ==
LOC: EMR 20:13
PROVIDERS: Emergency Medicine; EMERGENCY PHYSICIAN Emergency Medicine
DX: R07.89 Other chest pain (principal); I25.10 Atherosclerotic heart disease of native coronary artery without angina pectoris; I25.2 Old myocardial infarction; E78.00 Pure hypercholesterolemia, unspecified; I48.91 Unspecified atrial fibrillation; Z95.5 Presence of coronary angioplasty implant and graft
CPT/HCPCS: 99285; 71046; 80053; 84484; 85025; 93005

== ENCOUNTER 2025-05-10 19:43 | Emergency (ER) | payer OTHER, SELFPAY ==
[2025-05-10 19:43] VITALS: BMI 38.5
[2025-05-10 19:50] VITALS: BP 120/64
[2025-05-10 20:22] LABS: Hematocrit 41.2 % (39.0-52.0); Hemoglobin 14.5 g/dL (13.0-18.0); Mean Corp Hgb Conc. 35.2 g/dL (33.0-37.0); Mean Corpuscular Volume 92.2 fL (80.0-94.0); Nucleated Red Blood Cells % 0 % (-); Platelet Count 192 10^3/uL (130-400); Red Cell Dist. Width 13.8 % (11.5-14.5)
[2025-05-10 20:33] LABS: APTT 33.4 Sec (23.4-35.0); INR 1.16; PT 15.4 Sec (11.4-14.6)
[2025-05-10 20:50] LABS: ALT (SGPT) 38 U/L (0-50); AST (SGOT) 39 U/L (17-59); Albumin 4.3 g/dl (3.5-5.0); Alkaline Phosphatase 77 U/L (38-126); Blood Urea Nitrogen 19 mg/dl (9-20); Calcium 9.6 mg/dl (8.4-10.2); Carbon Dioxide 27 mmol/L (22-30); Chloride 104 mmol/L (98-107); Glucose 107 mg/dl (70-99); Potassium 4.9 mmol/L (3.5-5.1); Sodium 139 mmol/L (135-145); Total Protein 7.1 g/dl (6.3-8.2); eGFR > 60.00
[2025-05-10 21:02] LABS: Troponin I 0.013 ng/ml
[2025-05-10 22:58] VITALS: BP 133/73
--- NOTE | 2025-05-10 23:00 | ED.GENMED ---
History of Present Illness
General
Chief Complaint: Heart Rate Problem
Time Seen by Provider: 05/10/25 23:00
History of Present Illness
History of Present Illness:
PAST MEDICAL HISTORY AND REVIEW OF OLD RECORDS
- The patient has a history of CAD with SC 7 years ago. He was seen here 11 days ago and at that time had a heart rate of 145 and took nitroglycerin due to chest pain. He was in a sinus rhythm at that time. He has also had some other visits
related to palpitations/tachycardia in February and March of this year and was in A-fib in December of this year.
Note:
CHIEF COMPLAINT(S)
Episodes of irregular heart rhythm and sinus congestion.
HISTORY OF PRESENT ILLNESS
The patient is a 64-year-old male with a history of recurrent episodes of what he describes as 'a valdivia, getting flush' and 'a bit of congestion around my collarbone' along with sinus congestion. These episodes began suddenly yesterday afternoon and
lasted approximately 20 minutes. They occurred again today at around 4:45 PM while the patient was having dinner. He felt a similar sensation and described it as 'started gulping.' The episode lasted about 45 minutes and subsided after taking a
nitroglycerin tablet, although he did not experience chest pain or pressure at the time. He denies taking any additional medications for this incident. The patient reports similar symptoms occurring three times in the past two days. He utilizes a
pulse oximeter to monitor his condition.
The patients cardiac evaluation upon arrival revealed an initial indication of atrial fibrillation, which has since resolved, with the current rhythm showing as normal sinus rhythm.
He describes ongoing sinus drainage and uses phenylephrine intermittently for sinus congestion. He stated that his sinus areas are constantly dripping, contributing to a need to frequently blow his nose or cough.
He is scheduled for a stress test tomorrow and an echocardiogram on May 31. He had a prior monitor which he used to document the duration of these episodes.
The patient also mentioned past issues with his health insurance, making reference to significant financial burdens with recurrent medical visits.
PAST MEDICAL AND SURGICAL HISTORY
Recurring episodes of possible paroxysmal atrial fibrillation.
EXTERNAL RECORDS REVIEWED
Reviewed patient visits from prior ER visits indicating similar episodes in February and March. The patient has scheduled a stress test for tomorrow and an echocardiogram on May 31.
CHRONIC MEDICAL CONDITIONS SIGNIFICANTLY AFFECTING CARE
Possible paroxysmal atrial fibrillation.
SOCIAL DETERMINANTS AFFECTING HEALTH
The patient reports significant financial hardship and high medical expenses due to suboptimal insurance coverage.
MEDICATIONS
- [place] 3, dosage not specified, taken twice a day.
- Propranolol, 12.5 mg, taken twice a day.
- Apixaban (Eliquis), dosage not specified, typically once a day with food.
REVIEW OF SYSTEMS
- Cardiovascular: Episodes of irregular heart rhythm. No chest pain reported.
- Respiratory: Sinus congestion with drainage and a sensation of congestion around the collarbone.
- Neurological: No dizziness or syncope reported.
- General: Expresses feelings of exhaustion and tiredness post-episode.
PHYSICAL EXAM
General: Alert, no acute distress.
Skin: Warm, dry.
Head: Normocephalic, atraumatic.
Neck: Supple, trachea midline.
Ears, Nose, Mouth and Throat: Oral mucosa moist, sinus drip present.
Cardiovascular: Normal sinus rhythm, heart rate 60, normal peripheral perfusion, No edema.
Respiratory: Respirations are non-labored. Breath sounds are clear.
Gastrointestinal: Abdomen nondistended.
Back: Normal range of motion, Normal alignment.
Musculoskeletal: Normal ROM, normal strength.
Neurological: Alert and oriented to person, place, time, and situation, No focal neurological deficit observed.
Psychiatric: Cooperative, appropriate mood & affect.
PLAN
1. The patient is scheduled for a stress test tomorrow.
2. The patient is also scheduled for an echocardiogram on May 31.
3. Discussed avoidance of medications with phenylephrine due to potential impact on heart rhythm and recommended consideration of alternative antihistamines like Benadryl.
4. Advised that he contact his sack cleaner after his stress test regarding recent episodes to consider any potential adjustment in his treatment plan.
DIFFERENTIAL DIAGNOSIS
The Differential Diagnosis includes, in no particular order and is not limited to:
1. Paroxysmal Atrial Fibrillation
2. Sinus Tachycardia
3. Supraventricular Tachycardia
4. Anemia
5. Anxiety or Panic Disorder
6. Thyroid Dysfunction
7. Benign Paroxysmal Positional Vertigo
8. Pulmonary Embolism
9. Congestive Heart Failure
10. Acute Coronary Syndrome
Disposition:
SUMMARY OF ENCOUNTER
The patient, a 64-year-old male, was seen in the emergency department due to episodes of irregular heart rhythm and sinus congestion. Upon arrival, the patient displayed normal sinus rhythm with a heart rate of approximately 60 beats per minute. He
reported no further symptoms at the time of evaluation. The patient is currently compliant with his prescribed medications, including propranolol and apixaban.
PLAN
Encouraged the patient to follow up with his sack cleaner for further evaluation and to address the recent episodes of irregular heart rhythm.
INDEPENDENT REVIEW OF LABS AND INTERPRETATION OF TESTS
My independent review of BNP and other basic labs indicates they are unremarkable.
FOLLOW-UP INSTRUCTIONS
Encouraged follow-up with sack cleaner promptly.
MEDICATION RECONCILIATION
1. Propranolol, 12.5 mg, taken twice a day.
2. Apixaban, dosage not specified, typically once a day with food.
MEDICAL DECISION MAKING
-Complexity of Data Reviewed: Chronic conditions affecting care include recurring episodes of paroxysmal atrial fibrillation.
-Data:
Category 1
Non-emergency department records reviewed, including external records of previous similar episodes in February and March.
Category 2
My independent interpretation indicates a sinus rhythm with a heart rate of 60 and review of BNP and other basic labs as unremarkable.
-Risk: Care significantly affected by Social Determinants of Health, given the patient reports significant financial hardship and high medical expenses due to suboptimal insurance coverage.
DIAGNOSIS
1. Paroxysmal Atrial Fibrillation (ICD-10: I48.0)
2. Sinus Congestion (ICD-10: J32.9)
EKG
- Assess atrial fibrillation with rate of 124 however he does seem to have some P waves and he may just have underlying sinus rhythm with PACs
LABS
- CBC and chemistries unremarkable, troponin 0.013, BNP 184
Past History
Past History
ED Past Medical History: CAD, Hypercholesterolemia, [place] and Psychiatric (Anxiety)
ED Past Surgical History: Cardiac (stents X 2) and Tonsilectomy
Social History
Tobacco: Non-smoker
Alcohol: None
Drug: None
Personal:
Living: with family
Phy Exam
Physical Exam
Physical Exam:
See HPI
Course
Orders/Labs/Results
Orders:
Orders
05/10/25 19:46
Electrocardiogram (*1) Urgent
Reason for Study: Chest Pain
EKG- Treatment ONCE
05/10/25 19:48
Electrocardiogram (*1) Urgent
Reason for Study: Other
Other Reason for Exam: Respiratory Distress
Cardiac Monitoring- Treatment ONCE
EKG- Treatment ONCE
IV Insert/Care/Rem.- Treatment PRN
CR Chest - 2 Views Urgent
Comment:
Reason For Exam: respiratory distress
O2 Therapy [RESP] Urgent
Titrate/Wean O2 to maintain O2 sat greater than (%): 93
Special Instructions: TO MAINTAIN CONTINUOUS O2 SATS >/= 93%
Pulse Ox/cont/shift [RESP] Urgent
Quantity: 1
Special Instructions: continuous pulse ox
05/10/25 20:08
Complete Blood Count/With Diff Urgent
Comprehensive Metabolic Panel Urgent
NT-proBNP Urgent
Troponin I Urgent
05/10/25 20:11
PTT Urgent
Prothrombin Time Urgent
Abnormal Lab Results
05/10/25 05/10/25
20:08 20:11
RBC 4.47 L 10^6/uL
(4.70-6.10)
MCH 32.4 H pg
(27.0-31.0)
Absolute Monos (auto) 0.7 H 10^3/uL
(0.1-0.6)
Monocytes % 9.7 H %
(1.7-9.3)
PT 15.4 H Sec
(11.4-14.6)
Glucose 107 H mg/dl
(70-99)
05/10/25 20:08
05/10/25 20:08
Vital Signs
Initial and Last Documented VS:
Initial Vital Signs
Temp Pulse Resp BP Pulse Ox
37.0 C 58 20 120/64 97
05/10/25 19:50 05/10/25 19:50 05/10/25 19:50 05/10/25 19:50 05/10/25 19:50
Last Documented Vital Signs
Temp Pulse Resp BP Pulse Ox
37.0 C 60 17 133/73 97
05/10/25 19:50 05/10/25 23:00 05/10/25 23:00 05/10/25 22:58 05/10/25 23:04
*Pulse Oximetry
SaO2: 97
Oxygen Mode of Delivery: Room air
Patient hypoxic: no
*Critical Care Note
Total Time (30-74mins, 75-104mins- exclusive of procedures): Not Applicable
ED Attending Note
-
Portions of this chart may have been created with voice recognition software.� Occasional wrong word or��sound alike� substitutions may have occurred due to the inherent limitations of voice recognition software.
Discharge Plan
Departure
Patient Disposition: Home (Routine Discharge)
Date of Disposition: 05/10/25
Time of Disposition: 23:18
Patient with high blood pressure during this ER visit?: Yes
Discharge Problem:
Atrial fibrillation
Instructions: Atrial Fibrillation (DC), BLOOD PRESSURE
Prescriptions:
No Action
atorvastatin 40 MG tablet
40 mg PO QPM Qty: 90 3RF
carvedilol 6.25 MG tablet
6.25 mg PO BID Qty: 180 3RF
aspirin 81 MG tablet,chewable
81 mg PO DAILY 0RF
lisinopril 2.5 MG tablet
2.5 mg PO BID Qty: 180 3RF
omega-3 acid ethyl esters [Lovaza] 1 GM capsule
2 cap PO BID
colchicine [Colcrys] 0.6 mg tablet
0.6 mg PO BID 2 Days Qty: 4 0RF
cephalexin 500 mg capsule
500 mg PO QID 5 Days Qty: 20 0RF
Referrals:
Riley Ford MD [Active, Cardiology]
Activity Restrictions/Additional Instructions:
The initial EKG that you had upon arrival here appears to show that you were in rapid atrial fibrillation. Your blood work is normal. You spontaneously came out of this abnormal rhythm. Continue your current medications. Follow-up Dr. Ford.
Return here if worse or other concerns.
Interventions
Interventions:
*Risk Screen - Suicide Last Done: 05/10/25 19:50
*General Assessment Last Done: 05/10/25 19:50
*Neglect/Abuse Screening Last Done: 05/10/25 19:50
*ED- Fall Risk Assessment Last Done: 05/10/25 19:50
Discharge Date and Time
Print Language: GRENADIAN
[2025-05-10 23:33] VITALS: BP 124/83
== END 2025-05-10 23:47 | disposition home or self-care (01) ==
LOC: EMR 19:43
PROVIDERS: EMERGENCY PHYSICIAN Emergency Medicine; FAMILY PHYSICIAN Family Medicine
DX: I48.91 Unspecified atrial fibrillation (principal); R03.0 Elevated blood-pressure reading, without diagnosis of hypertension; I25.10 Atherosclerotic heart disease of native coronary artery without angina pectoris; E78.00 Pure hypercholesterolemia, unspecified; I25.2 Old myocardial infarction; F41.9 Anxiety disorder, unspecified; Z79.01 Long term (current) use of anticoagulants; Z95.5 Presence of coronary angioplasty implant and graft; Z59.86 Financial insecurity
CPT/HCPCS: 99284; 80053; 83880; 84484; 85025; 85610; 85730; 93005

== ENCOUNTER 2025-05-11 20:16 | Emergency (ER) | payer OTHER, SELFPAY ==
[2025-05-11 20:23] VITALS: BP 124/78
[2025-05-11 20:38] LABS: Hematocrit 39.6 % (39.0-52.0); Hemoglobin 13.7 g/dL (13.0-18.0); Mean Corp Hgb Conc. 34.6 g/dL (33.0-37.0); Mean Corpuscular Volume 92.7 fL (80.0-94.0); Nucleated Red Blood Cells % 0 % (-); Platelet Count 176 10^3/uL (130-400); Red Cell Dist. Width 13.8 % (11.5-14.5)
[2025-05-11 21:06] LABS: ALT (SGPT) 39 U/L (0-50); AST (SGOT) 39 U/L (17-59); Albumin 4.3 g/dl (3.5-5.0); Alkaline Phosphatase 68 U/L (38-126); Blood Urea Nitrogen 17 mg/dl (9-20); Calcium 9.0 mg/dl (8.4-10.2); Carbon Dioxide 25 mmol/L (22-30); Chloride 107 mmol/L (98-107); Glucose 133 mg/dl (70-99); Potassium 4.1 mmol/L (3.5-5.1); Sodium 138 mmol/L (135-145); Total Protein 7.0 g/dl (6.3-8.2); eGFR > 60.00
[2025-05-11 21:11] VITALS: BP 109/81
[2025-05-11 21:13] LABS: Troponin I < 0.012 ng/ml
[2025-05-11 21:27] VITALS: BMI 38.8
[2025-05-11 22:00] VITALS: BP 110/64
--- NOTE | 2025-05-11 22:15 | ED.GENMED ---
History of Present Illness
General
Chief Complaint: Heart Rate Problem
Time Seen by Provider: 05/11/25 21:13
History of Present Illness
History of Present Illness:
See MDM
Past History
Past History
ED Past Medical History: CAD, Hypercholesterolemia, [place] and Psychiatric (Anxiety)
ED Past Surgical History: Cardiac (stents X 2) and Tonsilectomy
Social History
Tobacco: Non-smoker
Alcohol: None
Drug: None
Personal:
Living: with family
Phy Exam
Physical Exam
Physical Exam:
See MDM
Course
Orders/Labs/Results
Orders:
Orders
05/11/25 20:18
Electrocardiogram (*1) Urgent
Reason for Study: Chest Pain
EKG- Treatment ONCE
05/11/25 20:31
Complete Blood Count/With Diff Urgent
Comprehensive Metabolic Panel Urgent
Troponin I Urgent
05/11/25 22:14
Metoprolol Xl [Toprol Xl] 25 mg PO NOW STA
Abnormal Lab Results
05/11/25
20:31
RBC 4.27 L 10^6/uL
(4.70-6.10)
MCH 32.1 H pg
(27.0-31.0)
Monocytes % 10.1 H %
(1.7-9.3)
Glucose 133 H mg/dl
(70-99)
05/11/25 20:31
05/11/25 20:31
Vital Signs
Initial and Last Documented VS:
Initial Vital Signs
Temp Pulse Resp BP Pulse Ox
97.8 F 103 20 124/78 98
05/11/25 20:23 05/11/25 20:23 05/11/25 20:23 05/11/25 20:23 05/11/25 20:23
Last Documented Vital Signs
Temp Pulse Resp BP Pulse Ox
97.8 F 69 14 109/81 96
05/11/25 20:23 05/11/25 21:15 05/11/25 21:15 05/11/25 21:11 05/11/25 21:15
MDM/Problems Addressed
Differential Diagnosis Includes:
Note:
CHIEF COMPLAINT(S)
Palpitations.
HISTORY OF PRESENT ILLNESS
The patient is a 64-year-old male with a past medical history notable for atrial fibrillation (AFib), presenting with recurrent palpitations. The patient reports experiencing these palpitations for the fourth time over the last three days. He has
previously been diagnosed with AFib by Dr. Ford and is scheduled for a follow-up appointment in June. The patient mentioned taking carvedilol at a dose of 12.5 mg, which was originally prescribed as a treatment for his condition. He feels that
the current episodes of palpitations are out of control, occurring four times recently, and is concerned about the efficacy of his current medication regimen. There is a consideration of switching or adjusting his medication by the physician due to
these recurrent episodes. I explained the importance of beta blockers in controlling heart rate during AFib episodes and discussed the possible need for an cylinder honer consultation to explore the origin of the AFib and potential treatment
through an ablation procedure. The patient is currently on a blood thinner, apixaban (Eliquis), to prevent stroke, which is indicated due to the risk of clot formation in AFib. He was reassured that his palpitations are not life-threatening but are
bothersome.
PAST MEDICAL HISTORY
Atrial fibrillation.
MEDICATIONS
The patient currently takes carvedilol 12.5 mg, atorvastatin, metformin, omega-3 supplements, aspirin, a multivitamin, and a blood thinner, likely apixaban (Eliquis).
REVIEW OF SYSTEMS
- Cardiovascular: Recurrent palpitations noted.
PHYSICAL EXAM
General: Alert, no acute distress.
Skin: Warm, dry.
Head: Normocephalic, atraumatic
Neck: Appears supple, trachea midline.
Eyes, Ears, Nose, Mouth, and Throat: Oral mucosa moist.
Cardiovascular: No signs of cyanosis. Regular rate and rhythm
Respiratory: Respirations are non-labored.
Abdomen: Non-distended
Musculoskeletal: No deformities
Neurological: No focal neurological deficit observed.
Psychiatric: Cooperative, appropriate mood and affect.
PLAN
- The physician plans to consult with the patients sewer and cutter finger buff material or one of the cardiologists partners to discuss adjusting the medication regimen, specifically considering altering the beta macy dosage or switching medications to better manage the
AFib episodes.
- The patient is advised to follow up with an cylinder honer to further investigate the underlying causes of AFib and discuss potential interventions such as catheter ablation.
- Instructed to continue use of current medications unless advised otherwise by the sewer and cutter finger buff material.
- All changes to medication are to be coordinated with the patients sewer and cutter finger buff material and are to be followed up on outpatient basis.
DIFFERENTIAL DIAGNOSIS
The Differential Diagnosis includes, in no particular order and is not limited to:
1. Atrial Flutter
2. Ventricular Tachycardia
3. Sinus Tachycardia
4. Supraventricular Tachycardia
5. Anxiety-related Palpitations
6. Hypertensive Heart Disease
7. Hyperthyroidism
8. Coronary Artery Disease
9. Dilated Cardiomyopathy
10. Electrolyte Imbalance
EKG
My independent EKG interpretation is:
- Time of EKG: Not specified
- Rhythm: Atrial Flutter
- Heart Rate: 92 beats per minute
- [place]: Left axis
- ST Segment: No elevation
Disposition:
SUMMARY OF ENCOUNTER
The 64-year-old male patient presented with recurrent palpitations over the last few days, linked to his known atrial fibrillation (AFib). During the emergency department visit, a discussion was held with the sewer and cutter finger buff material concerning the patients
management. Given the patients recurrent AFib, the potential side effects of the current medication carvedilol, and the need for optimized control, it was recommended to consider discontinuing carvedilol and switching to metoprolol succinate
(Toprol-XL). The discussion included strategies to adjust dosages if necessary. The patient was advised on the importance of consistent follow-up with his sewer and cutter finger buff material for outpatient management and medication compliance.
MANAGEMENT OF THE PATIENTS CARE WAS DISCUSSED WITH
A consultation was conducted with the patient�s sewer and cutter finger buff material to discuss medication management and potential changes to address recurrent AFib episodes effectively.
PLAN
The recommendation is to stop carvedilol and begin metoprolol succinate (Toprol-XL) after discussing the details of this transition with the patients cardiology team. The patient should maintain regular follow-ups and adherence to his blood thinner,
presumably apixaban (Eliquis), to prevent stroke risk.
PATIENT EDUCATION AND COUNSELING
The patient was informed of the need to potentially adjust his current medication regimen, emphasizing the importance of transitioning to metoprolol succinate under cardiology supervision. The significance of adherence to his medication, especially
the blood thinner, was reiterated to reduce stroke risk, and the necessity for consistent cardiology follow-up was stressed.
FOLLOW-UP INSTRUCTIONS
The patient is advised to contact his cardiology team immediately to schedule an outpatient follow-up to manage and monitor the transition in his medication regimen.
MEDICATION RECONCILIATION
The potential switch from carvedilol to metoprolol succinate (Toprol-XL) was discussed. Current medication compliance, especially with apixaban (Eliquis), is crucial.
MEDICAL DECISION MAKING
-Chronic conditions affecting care: Atrial fibrillation
-DDx list includes: Atrial Flutter, Ventricular Tachycardia, Sinus Tachycardia, Supraventricular Tachycardia, Anxiety-related Palpitations, Hypertensive Heart Disease, Hyperthyroidism, Coronary Artery Disease, Dilated Cardiomyopathy, Electrolyte
Imbalance.
-Data:
Category 3
Discussion of management with other physician: The case was discussed with the patient�s sewer and cutter finger buff material to determine the best course of action considering his recurrent AFib and current medication side effect profile.
-Risk:
Prescription drug management or therapy requiring monitoring for toxicity due to changes in medication with potential side effects was discussed with the sewer and cutter finger buff material.
DIAGNOSIS
Atrial Fibrillation (I48.91).
*Pulse Oximetry
SaO2: 96
Oxygen Mode of Delivery: Room air
Patient hypoxic: no
*Critical Care Note
Total Time (30-74mins, 75-104mins- exclusive of procedures): Not Applicable
ED Attending Note
-
Portions of this chart may have been created with voice recognition software.� Occasional wrong word or��sound alike� substitutions may have occurred due to the inherent limitations of voice recognition software.
Discharge Plan
Departure
Patient Disposition: Home (Routine Discharge)
Date of Disposition: 05/11/25
Time of Disposition: 22:15
Patient with high blood pressure during this ER visit?: No
Discharge Problem:
A-fib
Instructions: Atrial Fibrillation (DC)
Prescriptions:
New
metoprolol succinate [Toprol XL] 25 mg tablet extended release 24 hr
25 mg PO BID Qty: 60 0RF
No Action
atorvastatin 40 MG tablet
40 mg PO QPM Qty: 90 3RF
carvedilol 6.25 MG tablet
6.25 mg PO BID Qty: 180 3RF
aspirin 81 MG tablet,chewable
81 mg PO DAILY 0RF
lisinopril 2.5 MG tablet
2.5 mg PO BID Qty: 180 3RF
omega-3 acid ethyl esters [Lovaza] 1 GM capsule
2 cap PO BID
colchicine [Colcrys] 0.6 mg tablet
0.6 mg PO BID 2 Days Qty: 4 0RF
cephalexin 500 mg capsule
500 mg PO QID 5 Days Qty: 20 0RF
Referrals:
Simone Gómez MD [Family Provider, Family Practice]
Activity Restrictions/Additional Instructions:
Please return for any worsening symptoms.
You may return at any time if you have further concerns.
Please follow up with your sewer and cutter finger buff material at the first available appointment, preferably this week.
As we discussed, please stop taking your carvedilol. Instead, I am placing you on a new blood pressure medicine called metoprolol. The prescription is 25 mg twice a day. If you start to develop dizziness and fatigue or slow heart rate anywhere
from 40-50 beats per minute, you can switch the prescription to 25 mg at nighttime. If this still does not help, you can decrease the dose to 12.5 mg at nighttime.
Thank you for choosing [facility].
Interventions
Interventions:
*Risk Screen - Suicide Last Done: 05/11/25 20:23
*General Assessment Last Done: 05/11/25 20:23
*Neglect/Abuse Screening Last Done: 05/11/25 20:23
*ED- Fall Risk Assessment Last Done: 05/11/25 21:28
*ED COVID-19 Vaccine History Last Done: 05/11/25 21:28
ED- Cardiac Assessment Last Done: 05/11/25 21:36
ED- Pulmonary Assessment Last Done: 05/11/25 21:36
Discharge Date and Time
Print Language: GABONESE
[2025-05-11 22:33] VITALS: BP 113/71
[2025-05-11] MEDS: TOPROL XL 25 MG PO (22:33)
== END 2025-05-11 22:50 | disposition home or self-care (01) ==
LOC: EMR 20:16
PROVIDERS: Emergency Medicine; EMERGENCY PHYSICIAN Student in an Organized Health Care Education/Training Program; FAMILY PHYSICIAN Family Medicine
DX: I48.91 Unspecified atrial fibrillation (principal); I25.10 Atherosclerotic heart disease of native coronary artery without angina pectoris; E78.00 Pure hypercholesterolemia, unspecified; I25.2 Old myocardial infarction; F41.9 Anxiety disorder, unspecified; Z95.5 Presence of coronary angioplasty implant and graft; Z79.01 Long term (current) use of anticoagulants; Z79.82 Long term (current) use of aspirin
CPT/HCPCS: 99284; 80053; 84484; 85025; 93005

== ENCOUNTER 2025-05-13 01:43 | Inpatient (IN) | payer OTHER, SELFPAY ==
[2025-05-12 17:29] VITALS: BP 121/75
[2025-05-12 18:02] LABS: Hematocrit 39.8 % (39.0-52.0); Hemoglobin 14.1 g/dL (13.0-18.0); Mean Corp Hgb Conc. 35.4 g/dL (33.0-37.0); Mean Corpuscular Volume 92.3 fL (80.0-94.0); Nucleated Red Blood Cells % 0 % (-); Platelet Count 172 10^3/uL (130-400); Red Cell Dist. Width 13.7 % (11.5-14.5)
[2025-05-12 18:31] LABS: ALT (SGPT) 37 U/L (0-50); AST (SGOT) 34 U/L (17-59); Albumin 4.2 g/dl (3.5-5.0); Alkaline Phosphatase 69 U/L (38-126); Blood Urea Nitrogen 15 mg/dl (9-20); Calcium 9.7 mg/dl (8.4-10.2); Carbon Dioxide 23 mmol/L (22-30); Chloride 109 mmol/L (98-107); Glucose 103 mg/dl (70-99); Potassium 4.2 mmol/L (3.5-5.1); Sodium 139 mmol/L (135-145); Total Protein 7.0 g/dl (6.3-8.2); eGFR > 60.00
[2025-05-12 19:42] VITALS: BP 104/66
[2025-05-12 20:00] VITALS: BP 119/89
[2025-05-12 21:00] VITALS: BP 118/82
[2025-05-12 22:00] VITALS: BP 144/88
--- NOTE | 2025-05-12 22:00 | ED.GENMED ---
History of Present Illness
<Bharti Earl MD, Resident - Last Filed: 05/13/25 00:31>
General
Chief Complaint: Heart Rate Problem
Source: patient
Time Seen by Provider: 05/12/25 21:58
Nursing documentation reviewed up to this point in time: agreed with
History of Present Illness
History of Present Illness:
64-year-old male with a past medical history of atrial fibrillation, myocardial infarction 7 years ago, hyperlipidemia returns to the ED due to increased heart rate around 140s-150s that started around 2 PM and lasted for many hours. He is here
again for the same reason, he was told to come in because the increased in heart rate lasted a lot longer than usual. Last night when he was here, his medication of carvedilol 12.5 mg was changed to metoprolol 25 mg twice daily. He received a dose
of metoprolol last night and took one again at around 2 PM. Patient's heart rate continue to come down while he was waiting in the ED. Patient has an appointment with Dr. Denis in June, and with From his pipe stress engineer in
May. He continues to stay on Eliquis. He denies any chest pain, shortness of breath, difficulty breathing, headaches, any fever or chills at this time. Does not have any abdominal pain, nausea or vomiting. He does continue to have some
mild lightheadedness at this time.
Past History
<Bharti Earl MD, Resident - Last Filed: 05/13/25 00:31>
Past History
ED Past Medical History: Arrthythmia (A-fib), CAD, Hypercholesterolemia, [place] and Psychiatric (Anxiety)
ED Past Surgical History: Cardiac (stents X 2) and Tonsilectomy
Social History
Tobacco: Non-smoker
Alcohol: None
Drug: None
Personal:
Living: with family
Review of Systems
<Bharti Earl MD, Resident - Last Filed: 05/13/25 00:31>
Review of Systems
Allergies reviewed?: Yes
Constitutional: Reports no symptoms
EENT: Reports no symptoms
Respiratory: Reports no symptoms
Cardiac: Reports palpitations; Denies chest pain, diaphoresis or syncope
ABD/GI: Reports no symptoms
: Reports no symptoms
Musculoskeletal: Reports no symptoms
Skin: Reports no symptoms
Neurological: Reports other (Lightheadedness)
Endocrine: Reports no symptoms
Hematologic/Lymphatic: Reports no symptoms
Psychiatric: Reports no symptoms
Phy Exam
<Bharti Earl MD, Resident - Last Filed: 05/13/25 00:31>
General Physical Exam
General Presentation: well appearing and no apparent distress
General Skin: warm and dry
General Habitus: normal
General Mental: alert
General Hydration: appears well hydrated
Cardiovascular Exam
Cardiovascular Exam: no edema and irregularly irregular
Pulmonary Exam
Pulmonary Exam: lungs clear, no respiratory distress, no crackles and no wheezing
Gastrointestinal Exam
Gastrointestinal Exam: normal bowel sounds, non tender, soft and non distended
Neurological Exam
Neurological Exam: alert, oriented x3, no motor deficits and no sensory deficits
Musculoskeletal Exam
Musculoskeletal Exam: full ROM and no edema
Skin Exam
Skin Exam: normal color, warm/dry and no rash
Psychiatric Exam
Psychiatric Exam: normal mood/affect
Course
<Bharti Earl MD, Resident - Last Filed: 05/13/25 00:31>
Orders/Labs/Results
Orders:
Orders
05/12/25 17:36
Electrocardiogram (*1) Urgent
Reason for Study: Tachycardia
EKG- Treatment ONCE
05/12/25 17:53
Complete Blood Count/With Diff Urgent
Comprehensive Metabolic Panel Urgent
Abnormal Lab Results
05/12/25
17:53
RBC 4.31 L 10^6/uL
(4.70-6.10)
MCH 32.7 H pg
(27.0-31.0)
Absolute Monos (auto) 0.7 H 10^3/uL
(0.1-0.6)
Monocytes % 10.0 H %
(1.7-9.3)
Chloride 109 H mmol/L
(98-107)
Glucose 103 H mg/dl
(70-99)
05/12/25 17:53
05/12/25 17:53
Vital Signs
Initial and Last Documented VS:
Initial Vital Signs
Temp Pulse Resp BP Pulse Ox
98.6 F 60 18 121/75 97
05/12/25 17:29 05/12/25 17:29 05/12/25 17:29 05/12/25 17:29 05/12/25 17:29
Last Documented Vital Signs
Temp Pulse Resp BP Pulse Ox
98.6 F 72 18 132/88 96
05/12/25 17:29 05/13/25 00:30 05/12/25 17:29 05/13/25 00:00 05/13/25 00:30
Vivilt;Guille Moses, DO - Last Filed: 05/13/25 00:11>
Orders/Labs/Results
Orders:
Orders
05/12/25 17:36
Electrocardiogram (*1) Urgent
Reason for Study: Tachycardia
EKG- Treatment ONCE
05/12/25 17:53
Complete Blood Count/With Diff Urgent
Comprehensive Metabolic Panel Urgent
Abnormal Lab Results
05/12/25
17:53
RBC 4.31 L 10^6/uL
(4.70-6.10)
MCH 32.7 H pg
(27.0-31.0)
Absolute Monos (auto) 0.7 H 10^3/uL
(0.1-0.6)
Monocytes % 10.0 H %
(1.7-9.3)
Chloride 109 H mmol/L
(98-107)
Glucose 103 H mg/dl
(70-99)
05/12/25 17:53
05/12/25 17:53
Vital Signs
Initial and Last Documented VS:
Initial Vital Signs
Temp Pulse Resp BP Pulse Ox
98.6 F 60 18 121/75 97
05/12/25 17:29 05/12/25 17:29 05/12/25 17:29 05/12/25 17:29 05/12/25 17:29
Last Documented Vital Signs
Temp Pulse Resp BP Pulse Ox
98.6 F 72 18 132/88 96
05/12/25 17:29 05/13/25 00:30 05/12/25 17:29 05/13/25 00:00 05/13/25 00:30
<Bharti Earl MD, Resident - Last Filed: 05/13/25 00:31>
MDM/Problems Addressed
Differential Diagnosis Includes:
A-fib, electrolyte imbalance, coronary artery disease, hypothyroidism, sinus tachycardia, SVT
MDM/Problems Addressed:
64-year-old male with a past medical history of atrial fibrillation, myocardial infarction 7 years ago, hyperlipidemia returns to the ED due to increased heart rate around 140s-150s that started around 2 PM and lasted for many hours.
EKG shows tachycardia alongside atrial fibrillation but not much change since the EKG from yesterday
No changes in electrolytes or CBC from yesterday either
0
Patient says that his heart rate jumped to 140 when he went to the bathroom. Went down afterwards and was hovering between 80s-100s when seen again.
After discussion with cardiology, due to patient's persistent arrhythmia and tachycardia, patient to be admitted to the hospital and will be started on potent antiarrhythmic therapy in the morning
Chronic conditions affecting care: CAD and Arrhythmia
<Bharti Earl MD, Resident - Last Filed: 05/13/25 00:31>
*Pulse Oximetry
SaO2: 97
Oxygen Mode of Delivery: Room air
Patient hypoxic: no
*Critical Care Note
Total Time (30-74mins, 75-104mins- exclusive of procedures): Not Applicable
ED Attending Note
<Bharti Earl MD, Resident - Last Filed: 05/13/25 00:31>
-
Portions of this chart may have been created with voice recognition software.� Occasional wrong word or��sound alike� substitutions may have occurred due to the inherent limitations of voice recognition software.
<Guille Moses DO - Last Filed: 05/13/25 00:11>
ED Attending Note
Patient seen and examined by attending physician: Yes
I performed a history and physical exam of patient and discussed management with resident, I reviewed resident's note and agree with documented findings and plan of care.: Yes
ED Attending Note:
Note:
CHIEF COMPLAINT(S)
Heart rate irregularities and tachycardia.
HISTORY OF PRESENT ILLNESS
The patient is a 64-year-old male with a history of atrial fibrillation, who presented due to concerns about fluctuating heart rate. The patient reports that he has been monitoring his heart rate, which varies between 99 to 104 beats per minute, and
occasionally reaching up to 140 beats per minute with minimal exertion, such as using the restroom. The patient indicates that his heart rate has been irregular. He has been prescribed metoprolol last evening, which he took upon arrival and again
this afternoon. He mentioned that this was a half hour before the current assessment. The patient also notes previous interactions with cardiologists Dr. Da Silva and Dr. Ramirez, with a follow-up scheduled with Dr. Da Silva in a couple of weeks. He
expresses concern over his rapid heart rate despite minimal activity. The current medications include Eliquis.
PAST MEDICAL AND SURGICAL HISTORY
History of atrial fibrillation.
MEDICATIONS
Metoprolol (dosing detail taken shortly before the visit), Eliquis.
PHYSICAL EXAM
General: Alert, no acute distress.
Skin: Warm, dry.
Head: Normocephalic, atraumatic.
Neck: Supple, trachea midline.
Eyes, Ears, Nose, Mouth, and Throat: Oral mucosa moist.
Cardiovascular: Normal peripheral perfusion, No edema.
Respiratory: Respirations are non-labored.
Gastrointestinal: Abdomen nondistended.
Back: Normal range of motion, Normal alignment.
Musculoskeletal: Normal range of motion, normal strength.
Neurological: Alert and oriented to person, place, time, and situation, No focal neurological deficit observed.
Psychiatric: Cooperative, appropriate mood & affect.
PROBLEM LIST
Acute: Heart rate irregularities/tachycardia.
Chronic: Atrial fibrillation.
PLAN
1. Consult with Dr. Ramirez, a refrigeration technician, to discuss potential adjustments to the patients management plan.
2. Potential adjustment of medication regimen to address tachycardia and irregular heart rate if necessary.
3. Continue monitoring heart rate and symptoms, with close vigilance on any episodes of significant increase in heart rate during daily activities.
DIFFERENTIAL DIAGNOSIS
The Differential Diagnosis includes, in no particular order and is not limited to:
1. Atrial fibrillation with rapid ventricular response
2. Supraventricular tachycardia
3. Paroxysmal atrial tachycardia
4. Hyperthyroidism
5. Anxiety-induced tachycardia
6. Dehydration
7. Heart failure
8. Pulmonary embolism
9. Myocardial infarction
10. Medication side effect (e.g., inadequate rate control from metoprolol)
Disposition:
SUMMARY OF ENCOUNTER
The patient, a 64-year-old male with persistent paroxysmal atrial fibrillation, has been seen multiple times over the last few days, including a visit yesterday where a medication change did not yield the desired results. Concerned about fluctuating
heart rate, the patient opted to return for further evaluation. After consultation with Dr. Ramirez, further medication adjustments were considered. The patient was given the option to either go home on amiodarone or stay in the hospital for
admission and begin treatment with dofetilide or sotalol. The patient chose hospital admission. He has been on apixaban for over three years and confirmed adherence to the medication.
DISPOSITION
Admit
MANAGEMENT OF THE PATIENTS CARE WAS DISCUSSED WITH
Consulted Dr. Ramirez for advice on further medication adjustments.
PLAN
The patient will be admitted to the hospital service for the initiation of treatment with dofetilide or sotalol, based on cardiology recommendations and monitoring, due to the persistent paroxysmal atrial fibrillation and recent treatment inefficacy.
MEDICATION RECONCILIATION
- Apixaban (Eliquis), ongoing for over three years, patient confirmed adherence.
- Discussed initiation of amiodarone versus hospitalization.
MEDICAL DECISION MAKING
- Number and Complexity of Problems Addressed: Chronic conditions affecting care include persistent paroxysmal atrial fibrillation.
- Data:
Category 3: Discussion of management and medication adjustment options with Dr. Ramirez.
- Risk: Consideration was given to escalation of care, leading to the decision for hospital admission to initiate dofetilide or sotalol under close supervision due to the complexity and risk associated with the patients arrhythmia.
DIAGNOSIS
1. Persistent paroxysmal atrial fibrillation (ICD-10: I48.0).
Discharge Plan
Departure
Patient Disposition: Admit
Date of Disposition: 05/13/25
Time of Disposition: 00:11
Admit to: Telemetry
Presentation/result/management discussed w/ accepting MD/DO: Hospitalist
Discharge Problem:
AF (paroxysmal atrial fibrillation)
Prescriptions:
No Action
atorvastatin 40 MG tablet
40 mg PO QPM Qty: 90 3RF
carvedilol 6.25 MG tablet
6.25 mg PO BID Qty: 180 3RF
aspirin 81 MG tablet,chewable
81 mg PO DAILY 0RF
lisinopril 2.5 MG tablet
2.5 mg PO BID Qty: 180 3RF
omega-3 acid ethyl esters [Lovaza] 1 GM capsule
2 cap PO BID
colchicine [Colcrys] 0.6 mg tablet
0.6 mg PO BID 2 Days Qty: 4 0RF
cephalexin 500 mg capsule
500 mg PO QID 5 Days Qty: 20 0RF
metoprolol succinate [Toprol XL] 25 mg tablet extended release 24 hr
25 mg PO BID Qty: 60 0RF
Referrals:
Simone Gómez MD [Family Provider, Family Practice]
Interventions
Interventions:
*Risk Screen - Suicide Last Done: 05/12/25 17:29
*General Assessment Last Done: 05/12/25 17:29
*Neglect/Abuse Screening Last Done: 05/12/25 17:29
ED- Cardiac Assessment Last Done: 05/12/25 22:30
ED- Pulmonary Assessment Last Done: 05/12/25 22:30
Discharge Date and Time
Print Language: [id number]
[2025-05-12 23:00] VITALS: BP 131/63
[2025-05-13] VITALS (8 sets, daily range): BP systolic 114–148; BP diastolic 63–89; BMI 37.0
--- NOTE | 2025-05-13 01:00 | HPS.HSE ---
Family Physician
-
Family Physician: Simone Gómez
Chief Complaint
-
Palpitations
History of Present Illness
Patient is a 64y M with PMH significant for ASCVD and PA-Fib who presents to ED complaining of palpitations. Patient states that he has been having increased frequency and duration of episodes of palpitations and exertional dyspnea for the past
week or so. He has been in the ED 3 times this week and 5 times in the past few months for racing heartbeat and fatigue. Yesterday his carvedilol was changed to Toprol 25mg BID. Today he again had palpitations with heart rate increasing to 140s
at home. Positive exertional dyspnea. Patient denies any chest pain. No fevers / chills.
At the time of my examination, he is in A-Fib on the monitor with rates in the 70s/80s.
Medical History
Past Medical History
Past Medical History: Reports Other
Additional Past Medical History:
ASCVD
Paroxysmal Atrial Fibrillation
Past Surgical History: Reports Other
Additional Past Surgical History:
PTCA with Stent
T&A
Social History
Tobacco: Non-smoker
Alcohol: Occasional
Drug: None
Personal:
Living: With Family
Family History
Family History: Not pertinent
Allergies / Home Medications
Allergies reflects when Allergies were last updated in [facility].
Home Medications with original date entered in [facility]
Allergy/Medication List:
Allergies
Allergy/AdvReac Type Severity Reaction Status Date / Time
shrimp Allergy Itching Verified 04/29/25 20:21
Sulfa (Sulfonamide Allergy Rash Verified 04/29/25 20:21
Antibiotics)
Home Medications
aspirin 81 mg chewable tablet 81 mg PO DAILY 04/28/18
omega-3 acid ethyl esters 1 gram capsule (Lovaza) 2 cap PO BID Supplement 01/23/22
metoprolol succinate 25 mg tablet,extended release 24 hr (Toprol XL) 25 mg PO BID #60 tabs 05/11/25
apixaban 5 mg tablet (Eliquis) 5 mg PO BID 05/13/25
atorvastatin 80 mg tablet 80 mg PO HS 05/13/25
ezetimibe 10 mg tablet 10 mg PO DAILY 05/13/25
Review of Systems
-
History Source: Patient
A 12 point ROS was completed and negative except as noted: Yes
Constitutional: Reports Fatigue; Denies Fever or Chills
Respiratory: Reports Trouble Breathing; Denies Cough
Cardiac: Reports Palpitations; Denies Chest Pain, Diaphoresis or Syncope
Abdomen/GI: Denies Abdominal Pain, Nausea, Vomiting or Diarrhea
: Denies Dysuria or Frequency
Musculoskeletal: Denies Joint Pain or Edema
Neurological: Denies Dizzy or Headache
Psych: Denies Depression or Anxiety
Physical Exam
Vital Signs
Vital Signs
Temp Pulse Resp BP Pulse Ox
98.6 F 72 18 132/88 96
05/12/25 17:29 05/13/25 00:30 05/12/25 17:29 05/13/25 00:00 05/13/25 00:30
Physical Exam
General: Other (64y M in no acute distress.)
HEENT: Moist mucous membranes and PERRLA
Respiratory: Clear; No Wheezes, Rales or Rhonchi
Cardiac: S1/S2 and Irregular Rhythm; No Murmur
GI: Soft, Non Tender, Non Distended and Normal Bowel Sounds
Musculoskeletal: No Clubbing, No Cyanosis and No Edema
Neuro: AO x 3
Laboratory Results
-
05/12/25 17:53
05/12/25 17:53
Laboratory Results
Total Bilirubin 1.1 mg/dl (0.2-1.3) 05/12/25 17:53
AST 34 U/L (17-59) 05/12/25 17:53
ALT 37 U/L (0-50) 05/12/25 17:53
Alkaline Phosphatase 69 U/L (38-126) 05/12/25 17:53
Impression/Plan
-
A/P: Patient is a 64y M with PMH significant for ASCVD and A-Fib who presents to ED complaining of palpitations.
Paroxysmal Atrial Fibrillation
- Admit for further evaluation and treatment.
- Cardiology considering antiarrhythmic therapy in AM with Tikosyn, Sotalol or similar.
- Continue current regimen for now including Toprol, Eliquis, etc.
ASCVD
- Stable. No chest pain.
- Continue ASA, statin, etc.
DVT Prophylaxis: On Eliquis
Code Status: Full
[2025-05-13] MEDS: ELIQUIS 5 MG PO ×3 (01:16→21:56)
[2025-05-13] MEDS: TOPROL XL 25 MG PO ×3 (01:16→10:15)
--- NOTE | 2025-05-13 02:50 | PTCARENOTE ---
Pt transported from ED to 3W via stretcher. Pt independent from stretcher to bed. Pt AAOX3, Vitals obtained and stable, placed on TELE monitoring. Pt oriented to room and call carrion within reach. Pleasant and cooperative.
[2025-05-13 07:49] LABS: Hematocrit 42.4 % (39.0-52.0); Hemoglobin 14.6 g/dL (13.0-18.0); Mean Corp Hgb Conc. 34.4 g/dL (33.0-37.0); Mean Corpuscular Volume 93.4 fL (80.0-94.0); Platelet Count 159 10^3/uL (130-400); Red Cell Dist. Width 13.7 % (11.5-14.5)
[2025-05-13 08:13] LABS: Blood Urea Nitrogen 15 mg/dl (9-20); Calcium 9.1 mg/dl (8.4-10.2); Carbon Dioxide 27 mmol/L (22-30); Chloride 107 mmol/L (98-107); Estimated Creatinine Clearance 121 ml/min; Glucose 98 mg/dl (70-99); HDL Cholesterol 31 mg/dl; LDL Cholesterol, Calculated 56 mg/dl; Potassium 4.5 mmol/L (3.5-5.1); Sodium 140 mmol/L (135-145); Very Low Density Lipoprotein 47 mg/dl (0-30); eGFR > 60.00
[2025-05-13] MEDS: ZETIA 10 MG PO (09:00)
[2025-05-13] MEDS: LOW STRENGTH ASPIRIN 81 MG PO (09:00)
--- NOTE | 2025-05-13 09:44 | CON.CAR ---
Consultation
Consultation Request
Date/Time Consultation Requested: 05/13/2025 at 3 AM
Date/Time Consultation Performed: 05/13/2025 at 9 AM
Requesting Provider: Kam Posadas DO
Performing Provider: Simone Ramirez MD
Reason for Consultation: atrial fibrillation
Medical History
-
Chief Complaint: atrial fibrillation
History of Present Illness:
Guille Perales is a 64-year-old man with a history of ischemic cardiomyopathy (EF 50-55%, 11/13), paroxysmal atrial fibrillation and hyperlipidemia who presents with worsening symptomatic paroxysmal atrial fibrillation. His paroxysms of A-fib have
been getting worse as an outpatient and he was scheduled to see Dr. Da Silva on 06/06/2025 to discuss a rhythm control strategy. He has been to the ER already twice this week for rapid rates. Carvedilol was switched to metoprolol but heart rates
were still high despite this so he came to the ER again last night. Heart rates were initially up to 120s. He reports that they are in the 140s as an outpatient and he has palpitations when in atrial fibrillation. He is currently asymptomatic in
sinus rhythm. He is not an excessive drinker. He has never been tested for sleep apnea.
Past Medical History
Past Medical History: Arrhythmias, CAD, CHF and Hypercholesterolemia
Social History
Tobacco: Non-Smoker
Alcohol: Occasional
Personal:
Living: With Family
Family History
Family History: Reviewed & Not Pertinent
Allergies / Home Medications
Allergy/AdvReac Type Severity Reaction Status Date / Time
shrimp Allergy Itching Verified 04/29/25 20:21
Sulfa (Sulfonamide Allergy Rash Verified 04/29/25 20:21
Antibiotics)
�Medication �Instructions �Recorded �Confirmed �Type
aspirin 81 mg chewable tablet 81 mg PO DAILY 04/28/18 05/13/25 Rx
omega-3 acid ethyl esters 1 gram 2 cap PO BID Supplement 01/23/22 05/13/25 History
capsule (Lovaza)
metoprolol succinate 25 mg 25 mg PO BID #60 tabs 05/11/25 05/13/25 Rx
tablet,extended release 24 hr
(Toprol XL)
apixaban 5 mg tablet (Eliquis) 5 mg PO BID 05/13/25 05/13/25 History
atorvastatin 80 mg tablet 80 mg PO HS 05/13/25 05/13/25 History
ezetimibe 10 mg tablet 10 mg PO DAILY 05/13/25 05/13/25 History
Review of Systems
-
All other systems: Negative unless noted
Physical Exam
Vital Signs
Temp Pulse Resp BP Pulse Ox
97.6 F 75 18 116/80 100
05/13/25 07:00 05/13/25 09:00 05/13/25 07:00 05/13/25 09:00 05/13/25 07:00
Lab Results
05/13/25 07:34
05/13/25 07:34
Physical Exam
General: Well Developed and Well Nourished
Respiratory: Clear and Non Labored Respirations
Cardiac: S1/S2 and Regular Rhythm; Negative Murmur or Peripheral Edema
Neuro: AO x 3
Impression / Plan
-
64-year-old man with a history of ischemic cardiomyopathy (EF 50-55%, 11/13), paroxysmal atrial fibrillation and hyperlipidemia who presents with worsening symptomatic paroxysmal atrial fibrillation.
Byproduct Engineer: Dr. Ford
Paroxysmal atrial fibrillation
-His symptoms are worsening as an outpatient and are no longer tolerable. Beta-macy uptitration has been limited by borderline blood pressures.
-BPs have been okay here. Increase metoprolol to 50 mg twice daily.
-Antiarrhythmic meds are limited. Class Ic agents contraindicated given structural heart disease. QTc is too long for Tikosyn or sotalol. Amiodarone is a possibility but this also causes QT prolongation
-EP consult tomorrow. Ultimately would benefit from ablation but needs temporizing measures.
-Continue Eliquis for anticoagulation
Ischemic cardiomyopathy
-TTE 10/2023: LVEF 50-55%, possible septal hypokinesis
-Continue aspirin, statin, ezetimibe, beta-macy
Data Reviewed
-
EKG: Tracing Personally Visualized and interpreted (Afib, QTc 482 ms; sinus Qtc 467 ms), Discussed with Physician, Discussed with Patient and Discussed with Family
Medical Tests (Nuc Med, Echo etc): Report Reviewed by me (EF 50-55%)
Labs: Labs Reviewed by me, Discussed with Physician and Discussed with Patient
Old Records: Reviewed
--- NOTE | 2025-05-13 10:39 | W.PN.HOSP.TC ---
Today's Communication/Plan
-
Beta-macy dose increased watch heart rate
EP evaluation tomorrow
Assessment / Plan
Assessment / Plan
64-year-old man with palpitations
EKG reviewed by Tiffany with RVR
Cardiovascular system S1-S2 irregular
Chest clear to auscultation
Abdomen soft and nontender
No pedal edema
Echo October 2023-normal LV systolic function. EF 50 to 55%. Possible septal hypokinesis.
# Paroxysmal atrial fibrillation
Admitted for atrial fibrillation management.
QTc is prolonged therefore not a candidate for antiarrhythmics at this point.
EP evaluation tomorrow
Eliquis and Toprol
# Coronary artery disease-continue aspirin, statin, Zetia, metoprolol. Check echo repeat.
# Ischemic cardiomyopathy
# Hyperlipidemia-continue Zetia and statin
# DVT prophylaxis-Eliquis
# Full code
Discussed with at bedside
D/W Cards
Part of this note was created using voice recognition system. Occasional wrong word or��sound alike� substitutions may have inadvertently occurred due to the inherent limitations of voice recognition software. If noted kindly bring it to my
attention for correction.
Anticipated Discharge: Within 24 hours
Subjective/Interval History
-
Date of Service: May 13, 2025
Objective Data
-
Labs:
Laboratory Results
05/13/25
07:34
WBC 7.3
Hgb 14.6
Hct 42.4
Plt Count 159
Sodium 140
Potassium 4.5
Chloride 107
Carbon Dioxide 27
BUN 15
Creatinine 0.9
Glucose 98
Calcium 9.1
Vital Signs:
Vital Signs
Temp Pulse Resp BP Pulse Ox
97.6 F 70 18 111/65 100
05/13/25 07:00 05/13/25 10:15 05/13/25 07:00 05/13/25 10:15 05/13/25 09:20
I&O
05/12/25 05/13/25 05/14/25
06:59 06:59 06:59
Intake Total 240 / 240
Balance 240 / 240
--- NOTE | 2025-05-13 13:10 | CM ---
Patient seen at bedside
IA completed
Lives with in split level home, 7 ENA, 7 steps to bed/bath
PLOF: Independent, works at [employer]
DME: [employer]
Denies VN/outpatient cardiac rehab in past
PCP: Isma Ware
Pharmacy: [facility]
PLAN: home, no needs anticipated
[2025-05-13] MEDS: LIPITOR 80 MG PO (21:56)
[2025-05-13] MEDS: TOPROL XL 50 MG PO (21:56)
[2025-05-14 03:16] VITALS: BP 101/58
[2025-05-14 07:00] VITALS: BP 133/71
[2025-05-14 07:25] LABS: Blood Urea Nitrogen 17 mg/dl (9-20); Calcium 9.3 mg/dl (8.4-10.2); Carbon Dioxide 23 mmol/L (22-30); Chloride 108 mmol/L (98-107); Estimated Creatinine Clearance 121 ml/min; Glucose 94 mg/dl (70-99); Magnesium 2.1 mg/dl (1.6-2.3); Potassium 4.2 mmol/L (3.5-5.1); Sodium 138 mmol/L (135-145); eGFR > 60.00
[2025-05-14] MEDS: TOPROL XL 50 MG PO (07:31)
--- NOTE | 2025-05-14 07:45 | W.PN.HOSP.TC ---
Today's Communication/Plan
-
Multiple episodes of tachycardia up to 140s today. Increased metoprolol from 50 mg BID to 75 mg BID. Seen by his procurement professional Dr. Ford, who recommended continuing metoprolol, environmental monitoring technician, and apixaban 5 mg p.o. twice daily. Not a great
candidate for antiarrhythmics, given his prolonged QTc. The patient is interested in cardiac ablation, which is scheduled for . May increase metoprolol dose, pending cardiology reevaluation.
Assessment / Plan
Assessment / Plan
64-year-old man with a PMH notable for paroxysmal A-fib and ASCVD, who presented with palpitations.
Multiple episodes of tachycardia up to 140s today. Seen by his procurement professional Dr. Ford, who recommended continuing metoprolol 50 mg twice daily, environmental monitoring technician, and apixaban 5 mg p.o. twice daily. Not a great candidate for antiarrhythmics,
given his prolonged QTc. The patient is interested in cardiac ablation, which is scheduled for . Increased metoprolol from 50 mg BID to 75 mg BID.
Echo October 2023-normal LV systolic function. EF 50 to 55%. Possible septal hypokinesis.
# Paroxysmal atrial fibrillation
Admitted for atrial fibrillation management.
QTc is prolonged therefore not a candidate for antiarrhythmics at this point.
EP evaluation tomorrow
Eliquis 5 mg p.o. twice daily
Toprol 75 mg p.o. twice daily
# Coronary artery disease-continue aspirin, statin, Zetia, metoprolol. Check echo repeat.
# Ischemic cardiomyopathy
# Hyperlipidemia-continue Zetia and statin
# DVT prophylaxis-Eliquis
# Full code
Discussed with at bedside
D/W Cards
Part of this note was created using voice recognition system. Occasional wrong word or��sound alike� substitutions may have inadvertently occurred due to the inherent limitations of voice recognition software. If noted kindly bring it to my
attention for correction.
Anticipated Discharge: 24 - 48 hours
Subjective/Interval History
-
Date of Service: May 14, 2025
Patient has been feeling paroxysmal heart racing. He uses his [employer] finger environmental monitoring technician when he feels his heart racing, and has seen heart rates in the 140s.
During these episodes, he feels lightheaded. He has been sittings that he has not had any falls. At home he knows to sit down when he feels lightheaded.
He denies chest pain, shortness of breath, vision changes, numbness, tingling, weakness, pain.
Objective Data
-
Labs:
Laboratory Results
05/14/25
06:22
Sodium 138
Potassium 4.2
Chloride 108 H
Carbon Dioxide 23
BUN 17
Creatinine 0.9
Glucose 94
Calcium 9.3
Vital Signs:
Vital Signs
Temp Pulse Resp BP Pulse Ox
98.0 F 61 16 101/58 98
05/14/25 03:16 05/14/25 03:16 05/14/25 03:16 05/14/25 03:16 05/14/25 03:16
I&O
05/13/25 05/14/25 05/15/25
06:59 06:59 06:59
Intake Total 240 / 240 1200 / 1200
Balance 240 / 240 1200 / 1200
Review of Systems
-
History Source: Patient
Constitutional: Reports No Symptoms
EENT: Reports No Symptoms Reported
Respiratory: Reports No Symptoms
Cardiac: Reports Palpitations and Other (lightheadedness)
Abdomen/GI: Reports No Symptoms
Neuro: Reports Dizzy
Physical Exam
-
General: Well Developed, Well Nourished and No Apparent Distress
HEENT: Normocephalic, Atraumatic and Moist Mucous Membranes
Respiratory: Clear to Auscultation
Cardiac: Regular Rhythm and S1/S2
GI: Soft, Nontender, Nondistended and Normal Bowel Sounds
Skin: Warm and Dry
Neuro: Awake, Alert and Oriented
Data Reviewed
-
Total Time Spent with Patient (in minutes): 25
Diagnostic Radiology: Report Reviewed by me
Labs: Labs Reviewed by me
[2025-05-14] MEDS: ZETIA 10 MG PO (08:10)
[2025-05-14] MEDS: ELIQUIS 5 MG PO ×2 (08:10→22:06)
[2025-05-14] MEDS: LOW STRENGTH ASPIRIN 81 MG PO (08:10)
--- NOTE | 2025-05-14 09:54 | W.PN.CD ---
Today's Communication / Plan
-
In the short-term would continue with beta-macy and monitor on telemetry continue anticoagulation with Eliquis further discussions with EP regarding timing of ablation.
Impression / Plan
-
64-year-old man with a history of ischemic cardiomyopathy (EF 50-55%, 11/13), paroxysmal atrial fibrillation and hyperlipidemia who presents with worsening symptomatic paroxysmal atrial fibrillation.
Pot Fisher: Dr. Ford
Paroxysmal atrial fibrillation
-His symptoms are worsening as an outpatient and are no longer tolerable. Beta-macy uptitration has been limited by borderline blood pressures.
- Carvedilol was changed to metoprolol succinate and dosing has been titrated currently tolerating Toprol XL 50 mg twice daily but patient has had recurren, symptomatic t A-fib with RVR this morning and has since converted back to sinus rhythm.
-Antiarrhythmic meds are limited. Class Ic agents contraindicated given structural heart disease. QTc is long for Tikosyn or sotalol. We discussed treatment options. Antiarrhythmic therapy limited to amiodarone which I would prefer not to use
long-term and this is a 64-year-old patient. We also discussed the possibility of ablation. Patient and his had heard about ablation from other people would had the procedure done. Issues were reviewed with EP. Would favor proceeding with
ablation but we will need to further assess timing.
In the short-term would continue with beta-macy and monitor on telemetry continue anticoagulation with Eliquis further discussions with EP regarding timing of ablation.
-Eliquis for anticoagulation
Ischemic cardiomyopathy
-TTE 10/2023: LVEF 50-55%, possible septal hypokinesis
-Continue aspirin, statin, ezetimibe, beta-macy
Physical Exam
Vital Signs/Labs
Vital Signs
Temp Pulse Resp BP Pulse Ox
97.7 F 57 20 133/71 97
05/14/25 07:00 05/14/25 07:00 05/14/25 07:00 05/14/25 07:00 05/14/25 07:00
05/13/25 05/14/25 05/15/25
06:59 06:59 06:59
Actual Weight 130.72 kg
05/13/25 07:34
05/14/25 06:22
Magnesium 2.1 mg/dl (1.6-2.3) 05/14/25 06:22
Triglycerides 238 mg/dl (10-149) H 05/13/25 07:34
LDL Cholesterol, Calc 56 mg/dl 05/13/25 07:34
VLDL Cholesterol, Calc 47 mg/dl (0-30) H 05/13/25 07:34
HDL Cholesterol 31 mg/dl 05/13/25 07:34
Physical Exam
Constitutional: No acute distress
Cardiovascular: Rhythm & rate is regular
GI: Soft and Non tender
Neuro/Psych: Alert
Data Reviewed
-
Date of Service: May 14, 2025
Medical Decision Making: Reviewed Test Results
Echo: Report Reviewed by me
Medical Tests (PFT, Pathology etc): Report Reviewed by me
Labs: Labs Reviewed by me
--- NOTE | 2025-05-14 10:23 | PTCARENOTE ---
Pt noted to have a few episodes of rapid Afib this AM. Sustaining in the 140's for a few minutes. Pt states that he feels a flutter in his chest when it starts but is otherwise asymptomatic. Denies chest pain or dizziness. Hospitalist resident and
practice specialist notified. Resident and Cardiology at bedside to assess, aware of situation. Plan of care ongoing.
--- NOTE | 2025-05-14 10:32 | CARDSERVDEF ---
Echocardiogram with Definity completed after protocol screening completed. Allergies verified.
Patent IV site: Left antecubital site clear
IV site flushed with 0.9% NaCl pre and post administration.
Diluted bolus method utilized to enhance visualization of ventricular laird.
Total volume given: __3__ mL
Patient tolerated all procedures well without complications.
[2025-05-14 11:00] VITALS: BP 135/90
--- NOTE | 2025-05-14 14:30 | PTCARENOTE ---
Pt observed to be starting to sustain HR in the 140s without coming back down to a normal rate periodically like before this morning. Pt remains mainly asymptomatic. States that the only main symptom is slight dizziness when he stands. Denies chest
pain. Hospitalist and Cardiology teams notified. New orders for Metoprolol to be increased to 75 mg BID. Will continue to monitor.
--- NOTE | 2025-05-14 14:53 | W.PN.UPDATE ---
Update Note
Progress Note Update
Seen and examined the patient with resident. Agree with the plans except for changes in my documentation
64-year-old man with palpitations
EKG reviewed by -Иван with RVR
Cardiovascular system S1-S2 irregular, tachycardic
Chest clear to auscultation
Abdomen soft and nontender
No pedal edema
Echo October 2023-normal LV systolic function. EF 50 to 55%. Possible septal hypokinesis.
# Paroxysmal atrial fibrillation
Admitted for atrial fibrillation management.
QTc is prolonged therefore not a candidate for antiarrhythmics at this point.
EP evaluation awaited
Eliquis and Toprol
Consider increasing metoprolol to 75 mg twice daily-discussed with cardiology
# Coronary artery disease-continue aspirin, statin, Zetia, metoprolol. Check echo repeat - Pending.
# Ischemic cardiomyopathy
# Hyperlipidemia- Continue Zetia and statin
# DVT prophylaxis-Eliquis
# Full code
Discussed with at bedside
D/W RN
D/W Cards
Part of this note was created using voice recognition system. Occasional wrong word or��sound alike� substitutions may have inadvertently occurred due to the inherent limitations of voice recognition software. If noted kindly bring it to my
attention for correction.
[2025-05-14 15:00] VITALS: BP 120/75
[2025-05-14] MEDS: LOPRESSOR 2.5 MG IV (17:18)
--- NOTE | 2025-05-14 18:26 | PTCARENOTE ---
New order received for STAT Lopressor IV. Medication given. Now sustaining 110s to 120's, appears improved on tele. Remains asymptomatic. Will continue to monitor.
--- NOTE | 2025-05-14 18:38 | W.PN.UPDATE ---
Update Note
Progress Note Update
HR 120s and comfortable. Just receiving evening betablocker dose. Dose increased. Echo technically difficult study. Challenging to assess LVF. Estimated 45% on report. May be lower. Decreased from prior report . Will continue addtional efforts at
rate control and rhythm control. EP will assess in AM. Ablation discussed. Based on timing of ablation we may need to consider short term amiodaroen. Will trasnfer to IVU to allow option fort IV amiodarone
[2025-05-14] MEDS: TOPROL XL 75 MG PO (18:42)
[2025-05-14 19:49] VITALS: BP 121/75
[2025-05-14] MEDS: LIPITOR 80 MG PO (22:06)
[2025-05-14 22:28] VITALS: BMI 36.7
[2025-05-14 22:30] VITALS: BP 139/68
[2025-05-15 04:30] VITALS: BP 129/87
[2025-05-15 04:33] LABS: Hematocrit 40.6 % (39.0-52.0); Hemoglobin 14.2 g/dL (13.0-18.0); Mean Corp Hgb Conc. 35.0 g/dL (33.0-37.0); Mean Corpuscular Volume 92.5 fL (80.0-94.0); Platelet Count 164 10^3/uL (130-400); Red Cell Dist. Width 13.6 % (11.5-14.5)
[2025-05-15 05:05] LABS: Blood Urea Nitrogen 16 mg/dl (9-20); Calcium 8.9 mg/dl (8.4-10.2); Carbon Dioxide 27 mmol/L (22-30); Chloride 108 mmol/L (98-107); Estimated Creatinine Clearance 108 ml/min; Glucose 94 mg/dl (70-99); Potassium 4.3 mmol/L (3.5-5.1); Sodium 140 mmol/L (135-145); eGFR > 60.00
--- NOTE | 2025-05-15 06:54 | PTCARENOTE ---
Pt. slept most of the night, remained in NSR while sleeping (A-flutter when awake before turning in for the night).
[2025-05-15 07:12] VITALS: BP 118/79
[2025-05-15] MEDS: LOW STRENGTH ASPIRIN 81 MG PO (08:32)
[2025-05-15] MEDS: ELIQUIS 5 MG PO (08:32)
[2025-05-15] MEDS: TOPROL XL 75 MG PO (08:32)
[2025-05-15] MEDS: ZETIA 10 MG PO (08:36)
[2025-05-15] MEDS: FLUSH (NSS) 1 FLUSH IV (08:36)
--- NOTE | 2025-05-15 12:12 | PTCARENOTE ---
Patient offers no complaints this morning, remains in SR, playing his guitar in the room.
[2025-05-15 12:18] VITALS: BP 128/75
--- NOTE | 2025-05-15 12:49 | W.PN.CD ---
Today's Communication / Plan
-
- Start Amiodarone - 400 mg BID for one week then 200 mg QD for 3 months.
- Lisinopril 2.5 mg QD
- Discharge home today
- Ablation plan for next week.
Impression / Plan
-
64-year-old man with a history of ischemic cardiomyopathy (EF 50-55%, 11/13), paroxysmal atrial fibrillation and hyperlipidemia who presents with worsening symptomatic paroxysmal atrial fibrillation.
Plating And Point Assembly Supervisor: Dr. Ford
Paroxysmal atrial fibrillation
-AFib / flutter
- was in atrial flutter in ER
-Recurrent and fast - difficult to control rhythm
- Recommend ablation
- Will start Amiodarone while waiting for the ablation.
- Plan for amiodarone 400 mg BID for one week then 200 mg QD for 3 months.
-Ablation urgent next week to avoid recurrence AF and tachycardia induced cardiomyopathy.
- LVEF of ECHO 05/14/25: LVEF 40% - consistent with tachycardia induced cardiomyopathy
- Ablation is urgently recommended to avoid worsening of myopathy and potentially reversible effect.
- Carvedilol was changed to metoprolol succinate and dosing has been titrated currently tolerating Toprol XL 50 mg twice daily but patient has had recurrent AF.
-Antiarrhythmic meds are limited. Class Ic agents contraindicated given structural heart disease. QTc is long for Tikosyn or sotalol. We discussed treatment options. Antiarrhythmic therapy limited to amiodarone which I would prefer not to use
long-term and this is a 64-year-old patient.
-Plan for ablation next week.
-Eliquis for anticoagulation
Ischemic cardiomyopathy
-TTE 10/2023: LVEF 50-55%, possible septal hypokinesis
- TTE 05/14/25: LVEF 40% - new drop consistent with tachycardia induced.
- Plan for ablation and will add additional GDMT as tolerated after ablation
-Continue aspirin, statin, ezetimibe, beta-macy
- Add Lisinopril 2.5 mg QD
Physical Exam
Vital Signs/Labs
Vital Signs
Temp Pulse Resp BP Pulse Ox
97.8 F 69 18 128/75 100
05/15/25 12:31 05/15/25 12:45 05/15/25 12:31 05/15/25 12:18 05/15/25 12:31
05/14/25 05/15/25 05/16/25
06:59 06:59 06:59
Actual Weight 129.5 kg
05/15/25 04:23
05/15/25 04:23
Magnesium 2.1 mg/dl (1.6-2.3) 05/14/25 06:22
Triglycerides 238 mg/dl (10-149) H 05/13/25 07:34
LDL Cholesterol, Calc 56 mg/dl 05/13/25 07:34
VLDL Cholesterol, Calc 47 mg/dl (0-30) H 05/13/25 07:34
HDL Cholesterol 31 mg/dl 05/13/25 07:34
Physical Exam
Constitutional: No acute distress and Comfortable
EENT: Anicteric and Moist mucous membranes
Cardiovascular: Rhythm & rate is regular, Pedal edema is absent and JVD pressure is normal
Respiratory: Respiratory effort normal, Lungs clear to auscul. and Wheeze Absent
GI: Soft, Distention absent, Non tender and Normal bowel sounds
Neuro/Psych: Alert, Oriented and AO x 3
Data Reviewed
-
Date of Service: May 15, 2025
Medical Decision Making: Reviewed Test Results, Test Interpretation and Review of Case with other Provider
EKG: Tracing Personally Visualized and interpreted
Echo: Report Reviewed by me
Medical Tests (PFT, Pathology etc): Discussed with Physician and Discussed with Patient
Labs: Labs Reviewed by me
Old Records: Reviewed
[2025-05-15] MEDS: PACERONE 400 MG PO (13:07)
--- NOTE | 2025-05-15 14:04 | W.PN.UPDATE ---
Addendum entered and electronically signed by Lyndsey Varghese MD 05/15/25 16:44:
Cardiovascular system-correction it should say heart rate is regular and not tachycardic
Original Note:
Update Note
Progress Note Update
Seen and examined the patient with resident. Agree with the plans except for changes in my documentation
64-year-old man with palpitations
EKG reviewed by -Magdi-mason with RVR
Cardiovascular system S1-S2 irregular, tachycardic
Chest clear to auscultation
Abdomen soft and nontender
No pedal edema
Echo 05/14/2025-EF 45%. Mild apical anteroseptal wall hypokinesis.
Valvular heart disease
# Paroxysmal atrial fibrillation
Admitted for atrial fibrillation management.
QTc is prolonged therefore not a candidate for antiarrhythmics at this point.
EP evaluation noted
Eliquis and Toprol
Amiodarone 400 mg twice a day for 1 week then 200 mg daily after that
Follow TSH and chest x-ray as outpatient. Normal TSH now.
Consider increasing metoprolol to 75 mg twice daily-discussed with cardiology
# Coronary artery disease-continue aspirin, statin, Zetia, metoprolol.
# Ischemic cardiomyopathy-continue lisinopril 2.5 mg, metoprolol
# Hyperlipidemia- Continue Zetia and statin
# DVT prophylaxis-Eliquis
# Full code
D/W RN
D/W Cards. Okay for discharge today for ablation next week
More than 30 minutes spent in discharge including
Final examination of the patient
Summarizing hospital stay
Instructions for continuing care to all relevant caregivers
Preparation of discharge records, prescriptions, and referral forms
Total time spent (in minutes): more than 30 min
[2025-05-15 15:27] VITALS: BP 100/50
--- NOTE | 2025-05-15 15:50 | W.DCSUMMARY ---
Discharge Summary
Discharge Data
Date of Admission: 05/13/25
Date of Discharge: 05/16/25
Total time spent discharging patient (in min): 35
-
Pending Results: No
Hospital Course
Primary diagnoses: �
Paroxysmal atrial fibrillation�
�
Secondary diagnoses:�
ASCVD�
�
Mr. Perales presented�to ED complaining of palpitations.� Patient states that he has been having increased frequency and duration of palpitations and exertional dyspnea for the past week.� He has been in the ED 3 times this week and 5 times in the
past few months for racing heartbeat and fatigue.� Yesterday his carvedilol was changed to Toprol 25mg BID.� Today he again had palpitations with heart rate increasing to 140s at home.� Positive exertional dyspnea.� Patient denies any chest pain or
dizziness. �
�
Since he had frequent tachycardia to 140s, his metoprolol was increased to 50 mg BID and then 75 mg BID. He was discharged on amiodarone 400 mg BID for 1 week, then 200 mg daily for 3 months. He has cardiac ablation scheduled for 05/17/25.�
�
# Paroxysmal atrial fibrillation�
Admitted for atrial fibrillation management. �
QTc is prolonged therefore not a candidate for antiarrhythmics�
Eliquis 5 mg p.o. twice daily �
Toprol 75 mg p.o. twice daily�
Amiodarone added: 400 mg BID for 1 week, then 200 mg daily for 3 months�
�
# Coronary artery disease, ischemic cardiomyopathy, hyperlipidemia�
- continue aspirin, statin, Zetia, lisinopril�
Discharge Plan
-
Patient Disposition: Home (Routine Discharge)
Discharge Diagnosis/Procedures: Paroxysmal atrial fibrillation
High cholesterol
Ischemic cardiomyopathy
Condition: Fair
Diet: Low Cholesterol
Activity: As tolerated
Driving Restrictions: As prior to admission
Bathing Restrictions: None
Blood Work: Thyroid function test 6 weeks. Chest x-ray 3-6 months while on amiodarone
Instructions: Atrial fibrillation
Referrals:
Amanda Da Silva MD [Active, Cardiology] - in one week
Simone Gómez MD [Family Provider, [facility]] - in less than 1 week
Additional Discharge Medication Instructions: Start Amiodarone 400 mg Twice daily for one week (finish on 05/22/25). On 05/23, take amiodarone 200 mg daily for 3 months.
Lisinopril 2.5 mg daily
Metoprolol 75 mg BID
Prescriptions:
New
amiodarone [Pacerone] 200 mg Tablet
400 mg PO BID Qty: 15 0RF
lisinopril 2.5 mg Tablet
2.5 mg PO DAILY Qty: 30 0RF
metoprolol succinate 50 mg Tablet Extended Release 24 Hr
75 mg PO BID Qty: 60 0RF
Continued
aspirin 81 MG tablet,chewable
81 mg PO DAILY 0RF
omega-3 acid ethyl esters [Lovaza] 1 GM capsule
2 cap PO BID
atorvastatin 80 mg Tablet
80 mg PO HS
ezetimibe 10 mg Tablet
10 mg PO DAILY
Eliquis 5 mg Tablet
5 mg PO BID
Discontinued
metoprolol succinate [Toprol XL] 25 mg tablet extended release 24 hr
25 mg PO BID Qty: 60 0RF
Discharge Orders:
Discharge Patient (As Directed); Ordered 05/15/25
Ordered By: Lyndsey Varghese
Care Plan Goals
Care Plan Goals:
Problem: Readiness for enhanced knowledge related to diagnosis and treatment plan
Goal: Understand your diagnosis and treatment plan needs, including medications if applicable.
Instructions: Know your diagnosis, underlying causes and treatment plan options, including medications if applicable. Consult with your health care team to learn about your diagnosis and treatment plan, including medications if applicable.
Discharge Date and Time
Discharge Date/Time: 05/15/25 18:00
Print Language: LITHUANIAN
--- NOTE | 2025-05-15 18:08 | PTCARENOTE ---
Patient seen by hospitalist and is ok for discharge home and to follow up with cardiology in one week. Reviewed discharge instructions, including amiodarone taper. He is aware of follow up appointments with Dr. Da Silva and his PCP as well as lab
work needed and CXR ordered later with amiodarone therapy. Patient discharged home with his .
== END 2025-05-15 18:00 | disposition home or self-care (01) | DRG 310 ==
LOC: IVU 01:43
PROVIDERS: Emergency Medicine; ADMITTING PHYSICIAN Hospitalist; ATTENDING PHYSICIAN Hospitalist; CONSULT PHYSICIAN Student in an Organized Health Care Education/Training Program; EMERGENCY PHYSICIAN Student in an Organized Health Care Education/Training Program; FAMILY PHYSICIAN Family Medicine
DX: I48.0 Paroxysmal atrial fibrillation (principal); I48.92 Unspecified atrial flutter; I25.10 Atherosclerotic heart disease of native coronary artery without angina pectoris; E78.00 Pure hypercholesterolemia, unspecified; I25.5 Ischemic cardiomyopathy; I25.2 Old myocardial infarction; Z79.01 Long term (current) use of anticoagulants; Z79.82 Long term (current) use of aspirin; Z79.899 Other long term (current) drug therapy
CPT/HCPCS: 80048; 80053; 80061; 83735; 84443; 85025; 85027; 93005; 93306; 99285; Q9957

== ENCOUNTER 2025-05-16 02:38 | Inpatient (IN) | payer OTHER, SELFPAY ==
[2025-05-15 23:47] VITALS: BP 132/68
[2025-05-16] VITALS (10 sets, daily range): BP systolic 104–123; BP diastolic 58–89; BMI 36.7; BMI 37.3
[2025-05-16 00:32] LABS: Hematocrit 41.7 % (39.0-52.0); Hemoglobin 14.6 g/dL (13.0-18.0); Mean Corp Hgb Conc. 35.0 g/dL (33.0-37.0); Mean Corpuscular Volume 91.0 fL (80.0-94.0); Nucleated Red Blood Cells % 0 % (-); Platelet Count 172 10^3/uL (130-400); Red Cell Dist. Width 13.7 % (11.5-14.5)
[2025-05-16] MEDS: CARDIZEM 125 IV (00:51)
--- NOTE | 2025-05-16 00:51 | ED.GENMED ---
History of Present Illness
General
Chief Complaint: Heart Rate Problem
Source: patient, records and spouse
Time Seen by Provider: 05/16/25 00:37
History of Present Illness
History of Present Illness:
64-year-old male presents to the emergency room complaining of palpitations and rapid heart rate. Patient has a history of paroxysmal atrial fibrillation which has been difficult to manage. Patient was discharged from the hospital just yesterday
after admission for A-fib. He was started on new medication which did ultimately help get him in sinus rhythm. Plan was for an ablation as an outpatient in the very near future. However during the day today he began to feel like his heart appears
very rapid. Heart rate was up to 140. No chest pain but he feels unwell when his heart rate is fast. Patient has been compliant with his medications.
Past History
Past History
ED Past Medical History: Arrthythmia (A-fib), CAD, Hypercholesterolemia, LA and Psychiatric (Anxiety)
ED Past Surgical History: Cardiac (stents X 2) and Tonsilectomy
Social History
Tobacco: Non-smoker
Alcohol: None
Drug: None
Personal:
Living: with family
Phy Exam
Physical Exam
Physical Exam:
General: Awake, Alert, Oriented X3. No acute distress.
Vitals: unremarkable
Head: Atraumatic
Eyes: Pupils equal, EOMI
Throat: Airway intact, no exudates
Neck: Trachea midline
Lungs: Clear and equal b/l
Heart: Regular rate, no murmurs
Abd: Soft, Nontender, No pulsatile mass
Neuro: Nonfocal
Skin: Warm, dry, no rash
Extremities: pulses equal b/l, no edema
Course
Orders/Labs/Results
Orders:
Orders
05/15/25 23:51
Electrocardiogram (*1) Urgent
Reason for Study: Other
Other Reason for Exam: Respiratory Distress
Cardiac Monitoring- Treatment ONCE
EKG- Treatment ONCE
IV Insert/Care/Rem.- Treatment PRN
Complete Blood Count/With Diff Urgent
Comprehensive Metabolic Panel Urgent
NT-proBNP Urgent
Troponin I Urgent
O2 Therapy [RESP] Urgent
Titrate/Wean O2 to maintain O2 sat greater than (%): 93
Special Instructions: TO MAINTAIN CONTINUOUS O2 SATS >/= 93%
Pulse Ox/cont/shift [RESP] Urgent
Quantity: 1
Special Instructions: continuous pulse ox
05/16/25 00:01
CR Chest - 2 Views Urgent
Reason For Exam: respiratory distress
05/16/25 00:45
Diltiazem 125 mg/125 ml Nss [Cardizem] 125 mg in 125 ml IV PER PROTOCOL
Initial dose in mg/hr, then titrate:: 5
Titrate to keep:: Heart rate 80-100 bpm
Titrate by mg/hr:: 5 mg/hr
Frequency of titrations (minutes):: 15
Maximum dose in mg/hr:: 15
05/16/25 01:12
Admit/Transfer Patient As Directed
Co-Sign Provider:
Level of Care: Inpatient admission
Assign to:: IVU
Physician / Group: [facility]
Diagnosis: A-Fib / Flutter
Reason for Hospitalization: A-Fib / Flutter
Expected length of stay greater than two midnights?: Yes
ELOS- Estimated Length of Stay in days: 3
I certify the patient meets the requirements for IP care: Yes
PRN Pain Medication Management As Directed
May give lesser potent ordered pain med per pt: Yes
preference::
Protocol:: Medication orders for pain may be administered in a
manner that supports deferring to patient preference
when the pt is:
- Requesting an ordered lesser potent pain medication.
Least to most potent pain medications are defined
as: acetaminophen < NSAID < tramadol < opioids
(morphine, oxycodone, hydromorphone).
- Requesting a lesser dose of the same medication IF
ORDERED.
- Requesting a less intrusive route of administration
if both routes are prescribed by the provider (PO <
IV).
05/16/25 01:13
Code Status As Directed
Resuscitation Status: Full Code
Abnormal Lab Results
05/16/25
00:17
RBC 4.58 L 10^6/uL
(4.70-6.10)
MCH 31.9 H pg
(27.0-31.0)
Glucose 108 H mg/dl
(70-99)
05/16/25 00:17
05/16/25 00:17
Vital Signs
Initial and Last Documented VS:
Initial Vital Signs
Temp Pulse Resp BP Pulse Ox
97.7 F 72 20 132/68 98
05/15/25 23:47 05/15/25 23:47 05/15/25 23:47 05/15/25 23:47 05/15/25 23:47
Last Documented Vital Signs
Temp Pulse Resp BP Pulse Ox
97.7 F 143 18 132/68 97
05/15/25 23:47 05/16/25 00:20 05/16/25 00:20 05/15/25 23:47 05/16/25 00:52
MDM/Problems Addressed
Differential Diagnosis Includes:
a fib, svt, frequent pac's
*Pulse Oximetry
SaO2: 97
Oxygen Mode of Delivery: Room air
Patient hypoxic: no
*EKG
Interpreted by ED Provider?: Yes
Heart Rate: 92
Rate: normal
Rhythm: a-fib
[place]: normal axis
Interval: normal interval
QRS Pattern: normal QRS
Ischemia: non-specific ST changes
*Leather Lacer Interpretation
Rate: normal
Interpretation: abnormal
Rhythm: a-fib
*Critical Care Note
Total Time (30-74mins, 75-104mins- exclusive of procedures): Not Applicable
ED Attending Note
-
Portions of this chart may have been created with voice recognition software.� Occasional wrong word or��sound alike� substitutions may have occurred due to the inherent limitations of voice recognition software.
Discharge Plan
Departure
Patient Disposition: Admit
Date of Disposition: 05/16/25
Time of Disposition: 00:51
Presentation/result/management discussed w/ accepting MD/DO: Hospitalist
Condition: Fair
Discharge Problem:
AF (paroxysmal atrial fibrillation), Cardiomyopathy
Prescriptions:
No Action
aspirin 81 MG tablet,chewable
81 mg PO DAILY 0RF
omega-3 acid ethyl esters [Lovaza] 1 GM capsule
2 cap PO BID
atorvastatin 80 mg Tablet
80 mg PO HS
ezetimibe 10 mg Tablet
10 mg PO DAILY
Eliquis 5 mg Tablet
5 mg PO BID
amiodarone [Pacerone] 200 mg Tablet
400 mg PO BID Qty: 15 0RF
lisinopril 2.5 mg Tablet
2.5 mg PO DAILY Qty: 30 0RF
metoprolol succinate 50 mg Tablet Extended Release 24 Hr
75 mg PO BID Qty: 60 0RF
Interventions
Interventions:
*Risk Screen - Suicide Last Done: 05/15/25 23:47
*General Assessment Last Done: 05/15/25 23:47
*Neglect/Abuse Screening Last Done: 05/15/25 23:47
*ED- Fall Risk Assessment Last Done: 05/15/25 23:47
*ED COVID-19 Vaccine History Last Done: 05/15/25 23:47
ED- Cardiac Assessment Last Done: 05/16/25 00:27
ED- Pulmonary Assessment Last Done: 05/16/25 00:27
Discharge Date and Time
Print Language: SPANISH
[2025-05-16 00:54] LABS: ALT (SGPT) 41 U/L (0-50); AST (SGOT) 36 U/L (17-59); Albumin 4.3 g/dl (3.5-5.0); Alkaline Phosphatase 79 U/L (38-126); Blood Urea Nitrogen 19 mg/dl (9-20); Calcium 9.3 mg/dl (8.4-10.2); Carbon Dioxide 24 mmol/L (22-30); Chloride 107 mmol/L (98-107); Estimated Creatinine Clearance 98 ml/min; Glucose 108 mg/dl (70-99); Potassium 4.4 mmol/L (3.5-5.1); Sodium 139 mmol/L (135-145); Total Protein 6.9 g/dl (6.3-8.2); eGFR > 60.00
[2025-05-16 01:10] LABS: Troponin I 0.017 ng/ml
--- NOTE | 2025-05-16 01:15 | HPS.HSE ---
Family Physician
-
Family Physician: NOT KNOW UNKNOWN - PT DOES
Chief Complaint
-
Palpitations
History of Present Illness
Patient is a 64y M with PMH significant for ASCVD and PA-Fib who presents to ED complaining of palpitations. Patient was recently hospitalized 05/13 - 05/15 for similar symptoms. He was evaluated by Cardiology and discharged on amiodarone and
Eliquis with plan for ablation therapy as an outpatient. Unfortunately, his palpitations returned shortly after he arrived at home. He remained in rapid atrial fibrillation for several hours and then returned to the ED for further evaluation.
Patient denies any chest pain or dizziness. He has some SOB with exertion.
Medical History
Past Medical History
Past Medical History: Reports Other
Additional Past Medical History:
ASCVD
Paroxysmal Atrial Fibrillation
Past Surgical History: Reports Other
Additional Past Surgical History:
PTCA with Stent
T&A
Social History
Tobacco: Non-smoker
Alcohol: Occasional
Drug: None
Personal:
Living: With Family
Family History
Family History: Not pertinent
Allergies / Home Medications
Allergies reflects when Allergies were last updated in [employer].
Home Medications with original date entered in [employer]
Allergy/Medication List:
Allergies
Allergy/AdvReac Type Severity Reaction Status Date / Time
shrimp Allergy Itching Verified 05/15/25 23:47
Sulfa (Sulfonamide Allergy Rash Verified 05/15/25 23:47
Antibiotics)
Home Medications
aspirin 81 mg chewable tablet 81 mg PO DAILY 04/28/18
omega-3 acid ethyl esters 1 gram capsule (Lovaza) 2 cap PO BID Supplement 01/23/22
apixaban 5 mg tablet (Eliquis) 5 mg PO BID Blood Clot Prevention/Tx 05/13/25
atorvastatin 80 mg tablet 80 mg PO HS High Cholesterol 05/13/25
ezetimibe 10 mg tablet 10 mg PO DAILY High Cholesterol 05/13/25
amiodarone 200 mg tablet (Pacerone) 400 mg (2 x 200 mg) PO BID Arrhythmia #15 tabs 05/15/25
lisinopril 2.5 mg tablet 2.5 mg PO DAILY #30 tabs 05/15/25
metoprolol succinate 50 mg tablet,extended release 24 hr 75 mg (1.5 x 50 mg) PO BID #60 tabs 05/15/25
Review of Systems
-
History Source: Patient
A 12 point ROS was completed and negative except as noted: Yes
Constitutional: Reports Fatigue; Denies Fever or Chills
Respiratory: Reports Trouble Breathing; Denies Cough
Cardiac: Reports Palpitations; Denies Chest Pain, Diaphoresis or Syncope
Abdomen/GI: Denies Abdominal Pain, Nausea, Vomiting or Diarrhea
: Denies Dysuria or Frequency
Musculoskeletal: Denies Joint Pain or Edema
Neurological: Denies Dizzy or Headache
Psych: Denies Depression or Anxiety
Physical Exam
Vital Signs
Vital Signs
Temp Pulse Resp BP Pulse Ox
97.7 F 143 18 132/68 97
05/15/25 23:47 05/16/25 00:20 05/16/25 00:20 05/15/25 23:47 05/16/25 00:52
Physical Exam
General: Other (64y M in no acute distress.)
HEENT: Moist mucous membranes and PERRLA
Respiratory: Clear; No Wheezes, Rales or Rhonchi
Cardiac: S1/S2 and Irregular Rhythm; No Murmur
GI: Soft, Non Tender, Non Distended and Normal Bowel Sounds
Musculoskeletal: No Clubbing, No Cyanosis and No Edema
Neuro: AO x 3
Laboratory Results
-
05/16/25 00:17
05/16/25 00:17
Laboratory Results
Total Bilirubin 1.2 mg/dl (0.2-1.3) 05/16/25 00:17
AST 36 U/L (17-59) 05/16/25 00:17
ALT 41 U/L (0-50) 05/16/25 00:17
Alkaline Phosphatase 79 U/L (38-126) 05/16/25 00:17
Troponin I 0.017 ng/ml 05/16/25 00:17
Impression/Plan
-
A/P: Patient is a 64y M with PMH significant for ASCVD and A-Fib who presents to ED complaining of palpitations.
Paroxysmal Atrial Fibrillation / Flutter with Rapid Ventricular Response
- Admit for further evaluation and treatment.
- Continue IV Cardizem overnight for rate control.
- Continue Eliquis for stroke risk reduction.
- Cardiology consulted for further recommendations - tentative plan is for ablation given limited medication options due to structural heart disease, long QT, etc
ASCVD
- Stable. No chest pain.
- Continue ASA, statin, etc.
DVT Prophylaxis: On Eliquis
Code Status: Full
[2025-05-16 03:43] LABS: Hematocrit 41.0 % (39.0-52.0); Hemoglobin 14.9 g/dL (13.0-18.0); Mean Corp Hgb Conc. 36.3 g/dL (33.0-37.0); Mean Corpuscular Volume 92.6 fL (80.0-94.0); Platelet Count 162 10^3/uL (130-400); Red Cell Dist. Width 13.6 % (11.5-14.5)
[2025-05-16 04:10] LABS: Blood Urea Nitrogen 19 mg/dl (9-20); Calcium 9.4 mg/dl (8.4-10.2); Carbon Dioxide 24 mmol/L (22-30); Chloride 108 mmol/L (98-107); Estimated Creatinine Clearance 109 ml/min; Glucose 102 mg/dl (70-99); Potassium 4.4 mmol/L (3.5-5.1); Sodium 139 mmol/L (135-145); eGFR > 60.00
--- NOTE | 2025-05-16 04:36 | PTCARENOTE ---
Rec'd pt from Ed as admission. Pt oriented to unit. Pt AAO*3, VSS, and aflutter on TELE monitor. Pt denies any pain or discomfort. HR ranges at rest from 65-80's at resting with occasional Tachycardic episodes with HR reach 130 for less than 15
seconds. Cardizem on hold at this time. [employer] updated while rounding on unit. Pt updated on plan of care and now resting with call carrion in reach. See MAR and flowchart for full pt care and assessment.
[2025-05-16 04:46] LABS: Magnesium 2.0 mg/dl (1.6-2.3)
--- NOTE | 2025-05-16 07:30 | W.PN.HOSP.TC ---
Addendum entered and electronically signed by Lyndsey Varghese MD 05/16/25 13:55:
Seen and examined the patient with resident. Agree with the plans except for changes in my documentation
64-year-old man with palpitations, was discharged on amiodarone came back within 24 hours with A-fib
EKG reviewed by me-A-fib with RVR
Cardiovascular system S1-S2 regular
Chest clear to auscultation
Abdomen soft and nontender
Echo 05/14/2025-EF 45%. Mild apical anteroseptal wall hypokinesis.
Valvular heart disease
# Paroxysmal atrial fibrillation
Admitted for atrial fibrillation management. Was discharged on amiodarone came back with more atrial fibrillation
Converted back to sinus rhythm now
QTc is prolonged therefore not a candidate for antiarrhythmics
EP evaluation noted, for ablation tomorrow.
Eliquis and Toprol
Normal TSH now.
Metoprolol to 75 mg twice daily
# Coronary artery disease-continue aspirin, statin, Zetia, metoprolol.
# Ischemic cardiomyopathy-continue lisinopril 2.5 mg, metoprolol
# Hyperlipidemia- Continue Zetia and statin
# DVT prophylaxis-Eliquis
# Full code
Discussed with nursing
Discussed with at bedside
Original Note:
Today's Communication/Plan
-
Cardiac ablation scheduled for 10 AM 05/17/2025. N.p.o. at midnight. Rate control with diltiazem until cardiac ablation
Assessment / Plan
Assessment / Plan
# Paroxysmal atrial fibrillation
Admitted for atrial fibrillation management.
QTc is prolonged therefore not a candidate for antiarrhythmics at this point.
EP evaluation awaited
Eliquis and Toprol
Consider increasing metoprolol to 75 mg twice daily-discussed with cardiology
Cardiac ablation scheduled 10 am 05/17/25
NPO at midnight. IV NS starting at midnight
Rate control with diltiazem until ablation tomorrow per cardiology
# Coronary artery disease-continue aspirin, statin, Zetia, metoprolol. Check echo repeat - Pending.
# Ischemic cardiomyopathy
# Hyperlipidemia- Continue Zetia and statin
# DVT prophylaxis-Eliquis
# Full code
Part of this note was created using voice recognition system. Occasional wrong word or��sound alike� substitutions may have inadvertently occurred due to the inherent limitations of voice recognition software. If noted kindly bring it to my
attention for correction.
Anticipated Discharge: 24 - 48 hours
Subjective/Interval History
-
Date of Service: May 16, 2025
Was admitted overnight. Mr. Perales return to the ED several hours after being discharged from the hospital, due to feeling unwell when his heart rate increases.
Objective Data
-
Labs:
Laboratory Results
05/16/25 05/16/25
00:17 03:11
WBC 7.4 6.4
Hgb 14.6 14.9
Hct 41.7 41.0
Plt Count 172 162
Sodium 139 139
Potassium 4.4 4.4
Chloride 107 108 H
Carbon Dioxide 24 24
BUN 19 19
Creatinine 1.1 1.0
Glucose 108 H 102 H
Calcium 9.3 9.4
Total Bilirubin 1.2
AST 36
ALT 41
Alkaline Phosphatase 79
Vital Signs:
Vital Signs
Temp Pulse Resp BP Pulse Ox
97.7 F 57 14 123/80 96
05/15/25 23:47 05/16/25 04:00 05/16/25 02:00 05/16/25 02:31 05/16/25 04:04
I&O
05/15/25 05/16/25 05/17/25
06:59 06:59 06:59
Intake Total 0 / 0
Balance 0 / 0
Review of Systems
-
History Source: Patient
All other systems: Reviewed and negative
Physical Exam
-
General: Well Developed, Well Nourished, No Apparent Distress and Comfortable
HEENT: Normocephalic, Atraumatic and Moist Mucous Membranes
Respiratory: Clear to Auscultation
Cardiac: S1/S2 and Irregular Rhythm
GI: Soft, Nontender, Normal Bowel Sounds and Distended
Skin: Warm and Dry
Neuro: Awake, Alert and Oriented
Data Reviewed
-
Diagnostic Radiology: Report Reviewed by me
Labs: Labs Reviewed by me
--- NOTE | 2025-05-16 08:03 | W.PN.CD ---
Today's Communication / Plan
-
- Plan for ablation tomorrow.
- Rate control with Dilt till tomorrow.
Impression / Plan
-
64-year-old man with a history of ischemic cardiomyopathy (EF 50-55%, 11/13), paroxysmal atrial fibrillation and hyperlipidemia who presents with worsening symptomatic paroxysmal atrial fibrillation.
Acls Nurse: Dr. Ford
Paroxysmal atrial fibrillation
- AFib / flutter - now in typical atrial flutter
- sent home but came back with recurrent arrhythmia and RVR
- High dose Metoprolol and Amiodarone - not effective - may take weeks before they become effective
- was in atrial flutter in ER
- Holding Amio to add Dilt IV drip for rate control
- Plan for amiodarone 400 mg BID for one week then 200 mg QD for 3 months.
- Plan for Ablation tomorrow.
- LVEF of ECHO 05/14/25: LVEF 40% - consistent with tachycardia induced cardiomyopathy
- Ablation is urgently recommended to avoid worsening of myopathy and potentially reversible effect.
- Carvedilol was changed to metoprolol succinate and dosing has been titrated currently tolerating Toprol XL 50 mg twice daily but patient has had recurrent AF.
-Antiarrhythmic meds are limited. Class Ic agents contraindicated given structural heart disease. QTc is long for Tikosyn or sotalol. We discussed treatment options. Antiarrhythmic therapy limited to amiodarone which I would prefer not to use
long-term and this is a 64-year-old patient.
-Plan for ablation tomorrow.
-Eliquis for anticoagulation - Hold AM dose tomorrow for ablation.
Ischemic cardiomyopathy
-TTE 10/2023: LVEF 50-55%, possible septal hypokinesis
- TTE 05/14/25: LVEF 40% - new drop consistent with tachycardia induced.
- Plan for ablation and will add additional GDMT as tolerated after ablation
-Continue aspirin, statin, ezetimibe, beta-macy
- Add Lisinopril 2.5 mg QD
Physical Exam
Vital Signs/Labs
Vital Signs
Temp Pulse Resp BP Pulse Ox
97.6 F 57 18 123/80 99
05/16/25 07:42 05/16/25 04:00 05/16/25 07:42 05/16/25 02:31 05/16/25 07:42
05/15/25 05/16/25 05/17/25
06:59 06:59 06:59
Actual Weight 131.8 kg
05/16/25 03:11
05/16/25 03:11
Magnesium 2.0 mg/dl (1.6-2.3) 05/16/25 03:11
05/16/25
00:17
[id number] Pept 194
LAB Results
05/16/25
00:17
Troponin I 0.017
Physical Exam
Constitutional: No acute distress and Comfortable
EENT: Anicteric and Moist mucous membranes
Cardiovascular: JVD pressure is normal, Rhythm/rate is irregular and Systolic murmur present
Respiratory: Respiratory effort normal, Lungs clear to auscul. and Wheeze Absent
GI: Soft, Distention absent, Non tender and Normal bowel sounds
Neuro/Psych: Alert, Oriented and AO x 3
Data Reviewed
-
Date of Service: May 16, 2025
Medical Decision Making: Reviewed Test Results, Test Interpretation and Review of Case with other Provider
EKG: Tracing Personally Visualized and interpreted
Echo: Report Reviewed by me
Labs: Labs Reviewed by me
Old Records: Reviewed
[2025-05-16] MEDS: ZESTRIL 2.5 MG PO (08:33)
[2025-05-16] MEDS: ZETIA 10 MG PO (08:33)
[2025-05-16] MEDS: ELIQUIS 5 MG PO ×2 (08:33→21:14)
[2025-05-16] MEDS: TOPROL XL 75 MG PO ×2 (08:33→21:13)
[2025-05-16] MEDS: LOW STRENGTH ASPIRIN 81 MG PO (08:33)
--- NOTE | 2025-05-16 09:31 | PTCARENOTE ---
Monitor showing pt converted from AF to NSR, EKG obtained. Dr. Varghese and Dr. Da Silva made aware.
--- NOTE | 2025-05-16 13:51 | CM ---
Reviewed chart. Met with and Mrs. Perales to review discharge plans. He states prior to admission he resides with his spouse in a spilt level home. He states he has seven steps to get to the main living are. He states prior to admission he was
independent with ambulation and adls. He has a single point cane at home. Medical work-up in progress. The discharge plan is to return home with his spouse when medically stable.
[2025-05-16] MEDS: LIPITOR 80 MG PO (22:09)
--- NOTE | 2025-05-16 22:56 | PTCARENOTE ---
Rec'd pt at change of shift. Pt AAO*3, VSS, and Sr on TELE monitor with a 1st degree HB. Pt denies any pain or discomfort. NPO after midnight as ordered. See MAR and flowchart for full pt care and assessment. Plan of care ongoing.
[2025-05-17] VITALS (20 sets, daily range): BP systolic 87–127; BP diastolic 49–74; BMI 36.6
[2025-05-17 04:09] LABS: Hematocrit 41.0 % (39.0-52.0); Hemoglobin 14.2 g/dL (13.0-18.0); Mean Corp Hgb Conc. 34.6 g/dL (33.0-37.0); Mean Corpuscular Volume 92.6 fL (80.0-94.0); Platelet Count 160 10^3/uL (130-400); Red Cell Dist. Width 14.1 % (11.5-14.5)
[2025-05-17 04:55] LABS: Blood Urea Nitrogen 18 mg/dl (9-20); Calcium 9.1 mg/dl (8.4-10.2); Carbon Dioxide 24 mmol/L (22-30); Chloride 106 mmol/L (98-107); Estimated Creatinine Clearance 98 ml/min; Glucose 92 mg/dl (70-99); Potassium 4.5 mmol/L (3.5-5.1); Sodium 138 mmol/L (135-145); eGFR > 60.00
[2025-05-17] MEDS: TOPROL XL 75 MG PO ×2 (08:20→20:30)
[2025-05-17] MEDS: ZETIA 10 MG PO (08:21)
[2025-05-17] MEDS: ZESTRIL 2.5 MG PO (08:21)
[2025-05-17] MEDS: LOW STRENGTH ASPIRIN 81 MG PO (08:21)
--- NOTE | 2025-05-17 10:15 | W.PN.HOSP.TC ---
Addendum entered and electronically signed by Lyndsey Varghese MD 05/17/25 11:49:
Seen and examined the patient and agree with residents plan.
CVS: S1-S2 normal
Chest: CTA B/L
Abdomen: Soft, NT
Extremities: No edema
Plan is for ablation today
Further plans per cardiology
Original Note:
Today's Communication/Plan
-
Cardiac ablation today. Morning Eliquis held. Did not eat breakfast.
Pending cardiology recommendations for postoperative plan such as whether patient stays overnight.
Assessment / Plan
Assessment / Plan
Patient is a 64y M with PMH significant for P A-fib, CAD, ischemic cardiomyopathy, HLD, neuropathy, and bilateral knee osteoarthritis, who presented with sustained palpitations for 2 hours after discharge the same day. He was recently hospitalized
05/13 - 05/15 for similar symptoms. He was evaluated by Cardiology and discharged on amiodarone and Eliquis with plan for ablation therapy as an outpatient. Unfortunately, his palpitations returned shortly after he arrived at home. He will receive
cardiac ablation today as an inpatient.
# Paroxysmal atrial fibrillation
Admitted for atrial fibrillation management.
QTc is prolonged therefore not a candidate for antiarrhythmics at this point.
EP evaluation awaited
Eliquis and Toprol
Metoprolol 75 mg twice daily
Cardiac ablation scheduled 10 am 05/17/25
Morning Eliquis dose held
Rate control with diltiazem until ablation per cardiology
Pending cardiology recommendations, including whether patient should stay overnight
# Coronary artery disease & Ischemic cardiomyopathy
- continue aspirin, statin, Zetia, metoprolol.
Echo 05/14/2025: LVEF estimated 45%. LVEF estimated 50-55 on 11/16/2023. Mid and apical anteroseptal wall hypokinesis. No significant valve disease. Typical atrial flutter.
# Hyperlipidemia
- Continue Zetia and statin
DVT prophylaxis-Eliquis
Full code
Part of this note was created using voice recognition system. Occasional wrong word or��sound alike� substitutions may have inadvertently occurred due to the inherent limitations of voice recognition software. If noted kindly bring it to my
attention for correction.
Anticipated Discharge: 24 - 48 hours
Subjective/Interval History
-
Date of Service: May 17, 2025
No acute events overnight. Patient endorsed feeling heart rate increased when he stood up to walk to the bathroom, but did not report other episodes of tachycardia.
Patient seems more anxious in the setting of his scheduled cardiac ablation today, and stated that he will not agree to the procedure before his arrives. She plans to arrive soon after 8 AM.
Objective Data
-
Labs:
Laboratory Results
05/17/25
02:46
WBC 7.0
Hgb 14.2
Hct 41.0
Plt Count 160
Sodium 138
Potassium 4.5
Chloride 106
Carbon Dioxide 24
BUN 18
Creatinine 1.1
Glucose 92
Calcium 9.1
Vital Signs:
Vital Signs
Temp Pulse Resp BP Pulse Ox
97.8 F 63 20 108/70 95
05/17/25 07:53 05/17/25 08:20 05/17/25 07:53 05/17/25 08:20 05/17/25 07:53
I&O
05/16/25 05/17/25 05/18/25
06:59 06:59 06:59
Intake Total 0 / 0 480 / 480
Balance 0 / 0 480 / 480
Review of Systems
-
History Source: Patient
All other systems: Reviewed and negative
Physical Exam
-
General: Well Developed, Well Nourished, No Apparent Distress and Comfortable
HEENT: Normocephalic, Atraumatic and Moist Mucous Membranes
Respiratory: Clear to Auscultation
Cardiac: Regular Rhythm and S1/S2
GI: Soft, Nontender, Nondistended and Normal Bowel Sounds
Skin: Warm and Dry
Neuro: Awake, Alert and Oriented
Data Reviewed
-
Total Time Spent with Patient (in minutes): 20
Labs: Labs Reviewed by me
--- NOTE | 2025-05-17 10:39 | W.PN.CD ---
Today's Communication / Plan
-
- Plan for ablation today - AFib and AFl ablation.
Impression / Plan
-
64-year-old man with a history of ischemic cardiomyopathy (EF 50-55%, 11/13), paroxysmal atrial fibrillation and hyperlipidemia who presents with worsening symptomatic paroxysmal atrial fibrillation.
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
Paroxysmal atrial fibrillation
- AFib / flutter - typical atrial flutter - came out on 05/16/25
- recurrent arrhythmia and RVR - could not treat him as outpatient with fast and frequent recurrence.
- High dose Metoprolol and Amiodarone - not effective - may take weeks before they become effective
- off the Dilt IV drip now.
- Plan for amiodarone 400 mg BID for one week then 200 mg QD for 3 months.
- LVEF of ECHO 05/14/25: LVEF 40% - consistent with tachycardia induced cardiomyopathy
- Ablation is urgently recommended to avoid worsening of myopathy and potentially reversible effect.
- Carvedilol was changed to metoprolol succinate and dosing has been titrated currently tolerating Toprol XL 50 mg twice daily but patient has had recurrent AF.
-Antiarrhythmic meds are limited. Class Ic agents contraindicated given structural heart disease. QTc is long for Tikosyn or sotalol. We discussed treatment options. Antiarrhythmic therapy limited to amiodarone which I would prefer not to use
long-term and this is a 64-year-old patient.
- Plan for Ablation today
-Eliquis for anticoagulation - Hold AM dose
Ischemic cardiomyopathy
-TTE 10/2023: LVEF 50-55%, possible septal hypokinesis
- TTE 05/14/25: LVEF 40% - new drop consistent with tachycardia induced.
- Plan for ablation and will add additional GDMT as tolerated after ablation
-Continue aspirin, statin, ezetimibe, beta-macy
- Add Lisinopril 2.5 mg QD
Physical Exam
Vital Signs/Labs
Vital Signs
Temp Pulse Resp BP Pulse Ox
97.8 F 63 20 108/70 95
05/17/25 07:53 05/17/25 08:20 05/17/25 07:53 05/17/25 08:20 05/17/25 07:53
05/16/25 05/17/25 05/18/25
06:59 06:59 06:59
Actual Weight 131.8 kg 129.1 kg
05/17/25 02:46
05/17/25 02:46
Magnesium 2.0 mg/dl (1.6-2.3) 05/16/25 03:11
05/16/25
00:17
Dzh-Z-Otocgnfpgse Pept 194
LAB Results
05/16/25
00:17
Troponin I 0.017
Physical Exam
Constitutional: No acute distress and Comfortable
EENT: Anicteric and Moist mucous membranes
Cardiovascular: Rhythm & rate is regular, Pedal edema is absent and JVD pressure is normal
Respiratory: Respiratory effort normal, Lungs clear to auscul. and Wheeze Absent
GI: Soft, Distention absent, Non tender and Normal bowel sounds
Neuro/Psych: Alert, Oriented and AO x 3
Data Reviewed
-
Date of Service: May 17, 2025
Medical Decision Making: Reviewed Test Results, Test Interpretation and Review of Case with other Provider
EKG: Tracing Personally Visualized and interpreted
Echo: Report Reviewed by me
Labs: Labs Reviewed by me
Old Records: Reviewed
--- NOTE | 2025-05-17 10:40 | PTCARENOTE ---
Pt is AOx3, no complaints of pain or discomfort. NPO for ablation later this AM. SB/SR on tele monitor, VSS. at bedside. Call carrion within reach.
--- NOTE | 2025-05-17 10:51 | PTCARENOTE ---
Pt left for clay processing labourer. Report given to clay processing labourer RN. at bedside and aware.
[2025-05-17 12:43] LABS: ACT-LR - POC 319 Seconds (116-155)
[2025-05-17 13:10] LABS: ACT-LR - POC 390 Seconds (116-155)
--- NOTE | 2025-05-17 13:44 | ITS.CL.ABL ---
Addendum entered and electronically signed by Amanda Da Silva MD 05/22/25 10:01:
EAM fig from the case:
Original Note:
Gasket Former - Ablation
Ablation
Procedure Report:
AFIB ablation:
Mr. Perales is a very pleasant 64 yr old gentleman with symptomatic paroxysmal AF, and persistent atrial flutter with recurrent flutters and acute heart failure due to AF/Tachycardia induced cardiomyopathy with LVEF of 40% is recommended for atrial
fibrillation/ flutter ablation.
Date of the Procedure:
05/17/2025
Indications:
Paroxysmal atrial fibrillation / atrial flutter
Pre-Operative Diagnosis:
Paroxysmal atrial fibrillation / atrial flutter
Post-Operative Diagnosis:
Paroxysmal atrial fibrillation / atrial flutter
Procedure Performed:
Atrial fibrillation ablation with Pulsed-Field approach for pulmonary vein isolation
Atrial flutter ablation with cavo-tricuspid isthmus line block formation
Performing Physician:
Amanda Da Silva MD
Assistants:
EP staff
Anesthesia:
See anesthesia records
Detailed Description of the Procedure:
Written informed consent was obtained from the patient after a full explanation of the risks and benefits of the procedure including the risks of sedation and anesthesia.
The patient was brought to the electrophysiology laboratory in stable condition in fasting state. Continuous electrocardiographic and hemodynamic monitoring was initiated.
The initial rhythm was atrial flutter.
The procedure site was meticulously prepared with surgical scrub and allowed to dry with no pooling. Sterile draping was applied to cover the procedure site. The image intensifier was draped with sterile bag and positioned over the patient. After
infusion of local anesthetic, vascular access was obtained under ultrasound guidance and sheaths were placed over guide wire as detailed below.
Sheath and Catheter Placement:
The following catheters / sheaths were placed
Sheaths:
��������� 17Fr steerable sheath (Agilis) in right femoral
��������� 9Fr in right femoral vein
��������� 7Fr in right femoral vein
Catheters:
��������� MYNOR HD Grid mapping catheter � at locations of RA, LA
��������� Farawave� PFA catheter
��������� ICE catheter (AcuNav) � at locations of RA, SVC, and RV.
��������� Decapolar Bard catheter in RA and CS
Intracardiac ECHO:
An 8-Barbadian AcuNav intracardiac ECHO (ICE) probe was advanced through the 9-Barbadian sheath in the right femoral vein into the right atrium under fluoroscopic and ICE ultrasound image guidance and a baseline ECHO study was performed. The left atrial
size was normal. There was moderate tricuspid regurgitation. The aortic valve was grossly normal. There was normal left ventricular systolic functions. There is no pericardial effusion. All the four veins were identified and has flow identified.
During the procedure, ICE was used for monitoring of complications, guidance of trans-septal puncture, monitor the catheter position and tracking ablation lesions. No change in the pericardial space noted throughout the procedure.
Electroanatomic mapping of the right atrium:
A J-tipped guidewire was advanced through the 8-Barbadian sheath in the right femoral vein into the superior vena cava under fluoroscopic and ICE guidance. The 8-Barbadian sheath was exchanged for an Agilis sheath which was advanced into the superior vena
cava.
Using the HD grid catheter advanced through Agilis sheath into the right atrium, an electroanatomic map (EAM) of the right atrium was created using the MYNOR mapping system.
�
There was normal HV conduction noted at baseline at 45 ms.
Ablation # 1: Typical Atrial Flutter Ablation:
The flutter was mapped and was noted concentric in the CS. The RA was mapped in atrial flutter that showed typical counter clock tafoya CTI dependent atrial flutter.
The flutter was terminated with an early PVC / catheter induced depolarization at the septal area.
Glycopyrrolate 0.2 mg was given prior to the placement of ablation. A 100 mcg of nitroglycerin was given before the ablation. The CTI ablation was done using pulsed field ablation catheter in the cavotricuspid isthmus from the tricuspid annulus to
the IVC ridge. �
��������������� -Bidirectional block was confirmed across the CTI line with differential pacing.
��������������� -Double potentials were spaced greater than 92 msec apart.
��������������� -The conduction time across the CTI line from proximal CS pacing was 142 msec.
��������������� - All these maneuvers confirmed the block at the CTI line.
- Post ablation HV interval was unchanged at 45msec
Then attention was given to atrial fibrillation ablation.
Trans-septal Puncture:
Heparin was initiated and infused to maintain appropriate ACT. A pigtail guidewire was advanced through the sheath in the right femoral vein into the superior vena cava under fluoroscopic and ICE guidance. A transseptal RF pigtail via Agilis sheath
was utilized to perform the trans-septal puncture. The apparatus was withdrawn until it was in contact with the fossa ovalis. The position was adjusted based on fluoroscopy and ultrasound images from ICE. Under fluoroscopic, hemodynamic and ICE
ultrasound guidance, left atrium was cannulated by applying RF energy. Once atrial septum was cannulated, the pigtail wire was advanced through the needle into the left atrium. The guide wire was advanced into the left superior pulmonary vein. Both
the sheath and the dilator was advanced into the left atrium. The dilator with the needle was withdrawn. Blood was aspirated from the Agilis sheath and arterial blood confirmed. The sheath was flushed. Saline injection noted into the left atrium on
ICE. The mapping catheter was advanced in the sheath into the left pulmonary vein. Left atrial pressure was measured.
3D Electroanatomic Mapping:
Using the HD Grid catheter advanced through sheath into the left atrium, an electroanatomic map (EAM) of the left atrium was created using [employer] mapping system. The map was used for localization of catheter position and tacking of ablation
lesions.
The EAM of the left atrium showed 4 pulmonary veins with all 4 veins electrically connected to the body the LA. It showed normal voltage on the posterior and anterior wall of the LA. The LA was mildly dilated in size.
Following the EAM, preparation were made for ablation.
Ablation:
Ablation # 1: Pulmonary vein Isolation:
Using FarBizXchangeve pulsed wave ablation system, pulmonary vein isolation was achieved. First the ablation catheter was placed in the LSPV and ostial ablation lesions were performed in a counter clock tafoya approach all around the PV ostium
circumferentially. Then the catheter was placed on the antral location and multiple ablation lesions were placed circumferentially on the antrum of the vein.
In the similar fashion, the LIPV were isolated.
Then the catheter was moved to right sided veins. The ostial and antral ablations were placed as noted above.
EPS and Confirmation of the PVI and bidirectional block:
Following achievement of entrance block at the pulmonary veins, pacing from the HD catheter in each of the four veins at 10 milliamps for 2 milliseconds showed entrance and exit block. All PVI were rechecked at the end of the case and remained
isolated. Entrance and exit block were demonstrated in all veins.
Post ablation Electroanatomic mapping:
Once ablation was completed, the EAM of the LA was done again in sinus rhythm with excellent demarcation of LA myocardium and isolated antral tissue. There was no significant scarring noted in the LA.
The ANIA had healthy signals and was not isolated.
Procedure End
ICE study was done again that showed no epicardial accumulation. No complications noted.
Following the completion of the EP study, catheters were removed. Protamine 40 mg was given at the end of the procedure and ACT was checked repeatedly.
The sheaths were removed and hemostasis achieved with Fig of 8 suture and manual compression after acceptable ACT is achieved.
Left atrial Pressure:
Pre-ablation: Mean LA pressure was 7mmHg
Post-ablation: Mean LA pressure was 8mmHg
Post-ablation: Mean RA pressure was 4mmHg
Estimated Blood loss:
<10 cc
Specimens Removed:
None.
Implants / Devices:
None
Urine output:
None
Packs / Drains/ Tubes:
None
Instrument / Sponge Count Correct:
Yes
Complications of the Procedure:
None
Condition of Patient at Time of Transfer:
Hemodynamically stable with no neurological or vascular compromise.
Summary:
Successful atrial fibrillation ablation with Pulsed Field approach for pulmonary vein isolation.
Successful ablation of typical atrial flutter with radiofrequency ablation.
--- NOTE | 2025-05-17 14:51 | PTCARENOTE ---
received pt back from r&d lab technician. Right groin site CDI & soft. Pt denies any pain at this time. VSS. at bedside. Call carrion within reach.
--- NOTE | 2025-05-17 15:52 | CM ---
Reviewed chart. Mr. Perales has had Ablation today. Prior to admission he resides with his spouse in a spilt level home. He has seven steps to get to the main living are. Prior to admission he was independent with ambulation and adls. He has a
single point cane at home. Medical work-up in progress. The discharge plan is to return home with his spouse when medically stable.
Initialized on 05/16/25 13:51 - END OF NOTE
--- NOTE | 2025-05-17 17:52 | PTCARENOTE ---
R femoral figure of 8 suture clipped without incident. Pt agrees not to get OOB by himself. He is aware that he is on bedrest for an additional 1/2 hr.
--- NOTE | 2025-05-17 22:13 | PTCARENOTE ---
Rec'd pt at change of shift. R groin site CDI and pt denies any pain or discomfort. Pt AAO*3, VSS, and SR on TELE monitor. Pt updated on plan of care and resting with call carrion in reach. See MAR and flowchart for full pt care and assessment.
[2025-05-17] MEDS: LIPITOR 80 MG PO (22:19)
[2025-05-18 05:19] VITALS: BP 122/67
[2025-05-18 06:00] VITALS: BMI 36.5
[2025-05-18 06:18] LABS: Hematocrit 37.3 % (39.0-52.0); Hemoglobin 13.1 g/dL (13.0-18.0); Mean Corp Hgb Conc. 35.1 g/dL (33.0-37.0); Mean Corpuscular Volume 91.0 fL (80.0-94.0); Platelet Count 162 10^3/uL (130-400); Red Cell Dist. Width 13.8 % (11.5-14.5)
[2025-05-18 06:31] LABS: Blood Urea Nitrogen 25 mg/dl (9-20); Calcium 8.6 mg/dl (8.4-10.2); Carbon Dioxide 24 mmol/L (22-30); Chloride 105 mmol/L (98-107); Estimated Creatinine Clearance 98 ml/min; Glucose 127 mg/dl (70-99); Magnesium 2.0 mg/dl (1.6-2.3); Potassium 4.3 mmol/L (3.5-5.1); Sodium 135 mmol/L (135-145); eGFR > 60.00
[2025-05-18 07:25] VITALS: BP 131/70
[2025-05-18] MEDS: ZESTRIL 2.5 MG PO (08:59)
[2025-05-18] MEDS: ZETIA 10 MG PO (09:00)
[2025-05-18] MEDS: LOW STRENGTH ASPIRIN 81 MG PO (09:00)
[2025-05-18] MEDS: TOPROL XL 75 MG PO (09:13)
--- NOTE | 2025-05-18 10:52 | PTCARENOTE ---
Pt received this am in SB - SR, rate in the 50 - 60's. Pt oob ad john, gait steady. Room air, sat 96%. No c/o offered.
--- NOTE | 2025-05-18 11:01 | W.PN.CD ---
Today's Communication / Plan
-
- Continue Toprol-XL 75 mg twice daily and Eliquis 5 mg twice daily.
- Carvedilol was changed to metoprolol succinate; continue current dose.
- Will add Farxiga.
- No further cardiac recommendations at this time; outpatient follow-up with Cardiology.
Impression / Plan
-
64-year-old man with a history of ischemic cardiomyopathy (EF 50-55%, 11/13), paroxysmal atrial fibrillation and hyperlipidemia who presents with worsening symptomatic paroxysmal atrial fibrillation.
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
Paroxysmal atrial fibrillation
- AFib / flutter - typical atrial flutter - came out on 05/16/25
- recurrent arrhythmia and RVR - could not treat him as outpatient with fast and frequent recurrence.
- Lives stable status-post atrial fibrillation/flutter ablation yesterday.
- Continue Toprol-XL 75 mg twice daily and Eliquis 5 mg twice daily.
- LVEF of ECHO 05/14/25: LVEF 40% - consistent with tachycardia induced cardiomyopathy
- Ablation was urgently recommended to avoid worsening of myopathy and potentially reversible effect.
- Carvedilol was changed to metoprolol succinate; continue current dose.
- Antiarrhythmic meds are limited. Class Ic agents contraindicated given structural heart disease. QTc is long for Tikosyn or sotalol. We discussed treatment options. Antiarrhythmic therapy limited to amiodarone which is not preferred long-term
in this is a 64-year-old patient.
CAD:
- Currently stable.
- Continue aspirin, high-dose of atorvastatin, Zetia, and Toprol-XL.
Ischemic cardiomyopathy (EF 45%):
-TTE 10/2023: LVEF 50-55%, possible septal hypokinesis
- TTE 05/14/25: LVEF 45% - new drop consistent with tachycardia induced.
- Continue Current doses of lisinopril and Toprol-XL.
- Will add Farxiga.
Physical Exam
Vital Signs/Labs
Vital Signs
Temp Pulse Resp BP Pulse Ox
97.6 F 62 20 131/70 96
05/18/25 07:24 05/18/25 09:00 05/18/25 07:24 05/18/25 07:25 05/18/25 07:25
05/17/25 05/18/25 05/19/25
06:59 06:59 06:59
Actual Weight 129.1 kg 128.8 kg
05/18/25 05:25
05/18/25 05:25
Magnesium 2.0 mg/dl (1.6-2.3) 05/18/25 05:25
05/16/25
00:17
Dnn-R-Zhxgzfcaeja Pept 194
LAB Results
05/16/25
00:17
Troponin I 0.017
Physical Exam
Constitutional: No acute distress and Comfortable
EENT: Anicteric
Cardiovascular: Rhythm & rate is regular, Pedal edema is absent, Systolic murmur absent and S1S2 is normal
Respiratory: Respiratory effort normal and Lungs clear to auscul.
GI: Soft
Neuro/Psych: AO x 3
Other: Skin (Warm, dry, intact)
Data Reviewed
-
Date of Service: May 18, 2025
EKG: Tracing Personally Visualized and interpreted (Telemetry: Sinus rhythm)
Echo: Report Reviewed by me (EF 45%)
Medical Tests (PFT, Pathology etc): Discussed with Nurse, Discussed with Patient and Discussed with Family ( at bedside)
Labs: Labs Reviewed by me
[2025-05-18 11:05] VITALS: BP 109/45
--- NOTE | 2025-05-18 11:14 | CM ---
Reviewed chart. Met with and Mrs. Perales. Gave them the letter stating the date he was here. He states he maybe able to go home soon. Prior to admission he resides with his spouse in a spilt level home. He has seven steps to get to the main
living area. Prior to admission he was independent with ambulation and adls. He has a single point cane at home. Medical work-up in progress. The discharge plan is to return home with his spouse when medically stable.
--- NOTE | 2025-05-18 11:57 | W.DCSUMMARY ---
Addendum entered and electronically signed by Alexa Raphael MD, Resident 05/22/25 13:35:
Patient was discharged on 05/15/25.
Original Note:
Discharge Summary
Discharge Data
Date of Admission: 05/16/25
Date of Discharge: 05/18/25
Total time spent discharging patient (in min): 35
-
Pending Results: No
Hospital Course
Primary:
Paroxysmal atrial fibrillation status post cardiac ablation
Secondary:
Ischemic cardiomyopathy
Coronary artery disease
Hyperlipidemia
Osteoarthritis of knees, bilateral
Neuropathy
Mr. 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 He was discharged earlier that
day from being admitted for the same symptom.
During his previous admission, his metoprolol was increased to 75 mg BID and amiodarone was added: 400 mg BID for 1 week, then 200 mg daily for 3 months. Amiodarone was held when he was admitted. He was rate controlled on diltiazem until the cardiac
ablation. He underwent cardiac ablation on 05/17/25. He had an uneventful postoperative course.
# Paroxysmal atrial fibrillation
Admitted for atrial fibrillation management. Was discharged on amiodarone. Came back with more atrial fibrillation. Amiodarone discontinued, as diliazem was used for rate control until cardiac ablation.
Converted back to sinus rhythm
QTc is prolonged therefore not a candidate for many antiarrhythmics
- Eliquis 5 mg PO BID
- Toprol 75 mg BID
- Rate controlled with diltiazem 125 mg IV until ablation
- Cardiac ablation 05/17/25.
� Postoperatively, patient did not experience palpitations or lightheadedness with going to the bathroom as he had prior to cardiac ablation. No bleeding at the right groin/site of catheter access.
# Coronary artery disease, ischemic cardiomyopathy, hyperlipidemia
- continue aspirin, statin, Zetia, lisinopril
� Farxiga 10 mg daily added
Discharge Plan
-
Patient Disposition: Home (Routine Discharge)
Discharge Diagnosis/Procedures: Primary:
Paroxysmal atrial fibrillation status post cardiac ablation
Secondary:
Ischemic cardiomyopathy
Coronary artery disease
Osteoarthritis of knees, bilateral
Neuropathy
Hyperlipidemia
Condition: Fair
Diet: 2 Gram Sodium
Activity: As tolerated
Driving Restrictions: No driving for 24 hours
Activity Restrictions/Additional Instructions:
Please start taking Farxiga 10 mg daily. Please take metoprolol 75 mg twice a day. Your medications, including metoprolol, may be adjusted with your outpatient cardiology follow-up. Please follow-up with Dr. Da Silva, who performed the cardiac
ablation as well as your sustainable agriculture faculty Dr. Ford.
Please return to the ED if you notice pain or a pulsatile mass in your right groin.
It was a pleasure to be part of your care team.
Stand Alone Forms: DC Instructions- Cath/EP Lab
Referrals:
Bridger Panda MD [Active, Family Practice] - in one week
Referral Note: Patient was readmitted for evolving symptoms during stroke completion
Lachelle Vizcarra NP [Specified Professional Person[facility], Cardiology] - 06/07/25 9:40 am
Prescriptions:
New
dapagliflozin propanediol [Farxiga] 10 mg tablet
10 mg PO DAILY Qty: 30 0RF
Continued
aspirin 81 MG tablet,chewable
81 mg PO DAILY 0RF
omega-3 acid ethyl esters [Lovaza] 1 GM capsule
2 cap PO BID
atorvastatin 80 mg Tablet
80 mg PO HS
ezetimibe 10 mg Tablet
10 mg PO DAILY
Eliquis 5 mg Tablet
5 mg PO BID
lisinopril 2.5 mg Tablet
2.5 mg PO DAILY Qty: 30 0RF
metoprolol succinate 50 mg Tablet Extended Release 24 Hr
75 mg PO BID Qty: 60 0RF
Discontinued
amiodarone [Pacerone] 200 mg Tablet
400 mg PO BID Qty: 15 0RF
Discharge Date and Time
Print Language: CZECH
--- NOTE | 2025-05-18 13:47 | W.PN.UPDATE ---
Update Note
Progress Note Update
Seen and examined the patient with resident. Agree with the plans except for changes in my documentation
64-year-old man with palpitations
EKG reviewed by -Иван with RVR
Cardiovascular system S1-S2 regular
Chest clear to auscultation
Abdomen soft and nontender
No pedal edema
Echo 05/14/2025-EF 45%. Mild apical anteroseptal wall hypokinesis.
Valvular heart disease
# Paroxysmal atrial fibrillation
Status post ablation 05/17/2025
In sinus rhythm
Admitted for atrial fibrillation management.
EP evaluation noted
Eliquis and Toprol
Metoprolol to 75 mg twice daily
# Coronary artery disease-continue aspirin, statin, Zetia, metoprolol.
# Ischemic cardiomyopathy-continue lisinopril 2.5 mg, metoprolol
# Hyperlipidemia- Continue Zetia and statin
# DVT prophylaxis-Eliquis
# Full code
D/W RN
D/W Cards re plsns for DC.
D/W at bed side
Discharge
[2025-05-18 15:00] VITALS: BP 110/68
--- NOTE | 2025-05-18 15:37 | PTCARENOTE ---
Pt discharged to home with his . Discharge instuctions given and reviewed with good understanding and all questions answered.
--- NOTE | 2025-05-22 14:37 | W.PN.UPDATE ---
Update Note
Progress Note Update
Patient was discharged on 05/18/25, as the discharge summary states. In other words, the discharge date in the original discharge summary is correct.
The addendum stating the patient was discharged on 05/15/25 was meant for the previous discharge summary (the previous admission).
== END 2025-05-18 16:00 | disposition home or self-care (01) | DRG 274 ==
LOC: IVU 02:38
PROVIDERS: Student in an Organized Health Care Education/Training Program; ADMITTING PHYSICIAN Hospitalist; ATTENDING PHYSICIAN Hospitalist; CONSULT PHYSICIAN Internal Medicine Cardiovascular Disease; EMERGENCY PHYSICIAN Emergency Medicine
PROC: 4A0234Z Measurement of Cardiac Electrical Activity, Percutaneous Approach (ICD-10-PCS; 2025-05-17)
PROC: 4A023FZ Measurement of Cardiac Rhythm, Percutaneous Approach (ICD-10-PCS; 2025-05-17)
PROC: B24BZZ4 Ultrasonography of Heart with Aorta, Transesophageal (ICD-10-PCS; 2025-05-17)
PROC: 02583ZF Destruction of Conduction Mechanism using Irreversible Electroporation, Percutaneous Approach (ICD-10-PCS; 2025-05-17)
PROC: 02K83ZZ Map Conduction Mechanism, Percutaneous Approach (ICD-10-PCS; 2025-05-17)
DX: I48.0 Paroxysmal atrial fibrillation (principal); I25.10 Atherosclerotic heart disease of native coronary artery without angina pectoris; I48.3 Typical atrial flutter; E78.00 Pure hypercholesterolemia, unspecified; F41.9 Anxiety disorder, unspecified; I25.5 Ischemic cardiomyopathy; M17.0 Bilateral primary osteoarthritis of knee; G62.9 Polyneuropathy, unspecified; I50.9 Heart failure, unspecified; I25.2 Old myocardial infarction; Z79.01 Long term (current) use of anticoagulants; Z79.82 Long term (current) use of aspirin; Z79.899 Other long term (current) drug therapy; Z95.5 Presence of coronary angioplasty implant and graft
CPT/HCPCS: 71046; 80048; 80053; 83735; 83880; 84484; 85025; 85027; 85347; 93005; 93655; 93656; 94760; 96374; 99285; C1732; C1733; C1759; C1766; C1769; C1892; C1894

== ENCOUNTER 2025-05-24 10:00 | Inpatient (IN) | payer OTHER, SELFPAY ==
[2025-05-22] VITALS (7 sets, daily range): BP systolic 103–146; BP diastolic 51–82; BMI 37.4; BMI 35.7
[2025-05-22 17:03] LABS: Hematocrit 40.3 % (39.0-52.0); Hemoglobin 14.0 g/dL (13.0-18.0); Mean Corp Hgb Conc. 34.7 g/dL (33.0-37.0); Mean Corpuscular Volume 92.4 fL (80.0-94.0); Nucleated Red Blood Cells % 0 % (-); Platelet Count 181 10^3/uL (130-400); Red Cell Dist. Width 13.8 % (11.5-14.5)
[2025-05-22 17:23] LABS: ALT (SGPT) 33 U/L (0-50); AST (SGOT) 29 U/L (17-59); Albumin 4.4 g/dl (3.5-5.0); Alkaline Phosphatase 85 U/L (38-126); Blood Urea Nitrogen 15 mg/dl (9-20); Calcium 10.1 mg/dl (8.4-10.2); Carbon Dioxide 29 mmol/L (22-30); Chloride 103 mmol/L (98-107); Glucose 117 mg/dl (70-99); Potassium 5.1 mmol/L (3.5-5.1); Sodium 137 mmol/L (135-145); Total Protein 6.9 g/dl (6.3-8.2); eGFR > 60.00
[2025-05-22 17:32] LABS: Troponin I 0.144 ng/ml
--- NOTE | 2025-05-22 17:32 | ED.GENMED ---
History of Present Illness
General
Chief Complaint: Breathing Problem
Source: patient
Exam Limitations: none
Time Seen by Provider: 05/22/25 17:07
History of Present Illness
History of Present Illness:
64-year-old male on Eliquis presents with shortness of breath gasping for breath and hiccups following a cardiac ablation. He had the ablation 4 days ago. His symptoms started soon after. He notes a burning sensation in his chest he also notes
nausea with occasional vomiting. No fevers. No abdominal pain.
Past History
Past History
ED Past Medical History: Arrthythmia (A-fib), CAD, Hypercholesterolemia, [place] and Psychiatric (Anxiety)
ED Past Surgical History: Cardiac (stents X 2) and Tonsilectomy
Social History
Tobacco: Non-smoker
Alcohol: None
Drug: None
Personal:
Living: with family
Phy Exam
Physical Exam
Physical Exam:
General: Well-developed male with slight increased work of breathing
HEENT: Normocephalic atraumatic
Heart: Regular rate and rhythm
Lungs: Breath sounds heard all [place] patient does not take short gasping breath
Extremities: No cyanosis
Scores
Heart Failure Risk
Heart Failure Risk Score: Not Applicable
Course
Orders/Labs/Results
Orders:
Orders
05/22/25 16:30
Electrocardiogram (*1) Urgent
Reason for Study: Shortness of Breath
EKG- Treatment ONCE
05/22/25 16:50
Complete Blood Count/With Diff Urgent
Comprehensive Metabolic Panel Urgent
Troponin I Urgent
05/22/25 17:20
Ondansetron Injectable [Zofran] 4 mg IV NOW STA
CR Chest Portable - 1 View Urgent
Comment:
Reason For Exam: sob
Reason Study Needs to be Portable: Patient Unstable
05/22/25 17:24
Diphenhydramine [Benadryl] 25 mg IV NOW STA
Metoclopramide [Reglan] 10 mg IV NOW STA
05/22/25 20:00
ChlorproMAZINE [Thorazine] 25 mg 0.9% Sodium Chloride 50 ml [Nss] 50 ml IV Q8H
Abnormal Lab Results
05/22/25
16:50
RBC 4.36 L 10^6/uL
(4.70-6.10)
MCH 32.1 H pg
(27.0-31.0)
Absolute Monos (auto) 0.8 H 10^3/uL
(0.1-0.6)
Monocytes % 9.4 H %
(1.7-9.3)
Glucose 117 H mg/dl
(70-99)
Total Bilirubin 1.9 H mg/dl
(0.2-1.3)
Troponin I 0.144 H* ng/ml
05/22/25 16:50
05/22/25 16:50
Vital Signs
Initial and Last Documented VS:
Initial Vital Signs
Temp Pulse Resp Pulse Ox
98.2 F 51 26 100
05/22/25 16:35 05/22/25 16:35 05/22/25 16:35 05/22/25 16:35
Last Documented Vital Signs
Temp Pulse Resp BP Pulse Ox
98.2 F 74 13 127/82 98
05/22/25 16:35 05/22/25 19:00 05/22/25 19:00 05/22/25 18:00 05/22/25 18:45
MDM/Problems Addressed
Differential Diagnosis Includes:
Shortness of breath recent cardioversion. Consider pneumonia versus pneumothorax versus diaphragm dysfunction. Unlikely be PE as he is on Eliquis. He is not hypoxic. Heart rate is controlled labs pending. Chest x-ray pending. Will try Reglan
and Benadryl
*Pulse Oximetry
SaO2: 100
Oxygen Mode of Delivery: Room air
Patient hypoxic: no
*Critical Care Note
Total Time (30-74mins, 75-104mins- exclusive of procedures): Not Applicable
Update Note
Update Note:
Patient with intractable hiccups despite medication here. Chest x-ray is clear. Vital signs are stable. Spoke with pharmacy regarding the use of Thorazine and he felt it was okay in a monitored setting. Thorazine ordered but will admit
ED Attending Note
-
Portions of this chart may have been created with voice recognition software.� Occasional wrong word or��sound alike� substitutions may have occurred due to the inherent limitations of voice recognition software.
Discharge Plan
Departure
Patient Disposition: Admit
Date of Disposition: 05/22/25
Time of Disposition: 19:26
Presentation/result/management discussed w/ accepting MD/DO: Hospitalist
Discharge Problem:
Intractable hiccups
Prescriptions:
No Action
aspirin 81 MG tablet,chewable
81 mg PO DAILY 0RF
omega-3 acid ethyl esters [Lovaza] 1 GM capsule
2 cap PO BID
atorvastatin 80 mg Tablet
80 mg PO HS
ezetimibe 10 mg Tablet
10 mg PO DAILY
Eliquis 5 mg Tablet
5 mg PO BID
lisinopril 2.5 mg Tablet
2.5 mg PO DAILY Qty: 30 0RF
metoprolol succinate 50 mg Tablet Extended Release 24 Hr
75 mg PO BID Qty: 60 0RF
dapagliflozin propanediol [Farxiga] 10 mg tablet
10 mg PO DAILY Qty: 30 0RF
Referrals:
NONE,* [Family Provider, Internal Medicine]
Interventions
Interventions:
*Risk Screen - Suicide Last Done: 05/22/25 16:40
*General Assessment Last Done: 05/22/25 17:42
*Neglect/Abuse Screening Last Done: 05/22/25 16:40
*ED- Fall Risk Assessment Last Done: 05/22/25 17:42
*ED COVID-19 Vaccine History Last Done: 05/22/25 17:42
ED- Cardiac Assessment Last Done: 05/22/25 17:44
ED- Pulmonary Assessment Last Done: 05/22/25 17:44
Discharge Date and Time
Print Language: GREEK
[2025-05-22] MEDS: BENADRYL 25 MG IV (17:39)
[2025-05-22] MEDS: REGLAN 10 MG IV (17:40)
--- NOTE | 2025-05-22 19:50 | HPS.HSE ---
Family Physician
-
Family Physician: * NONE
Chief Complaint
-
intractable hiccups
History of Present Illness
Patient is a 64-year-old male with past medical history significant for ASCVD, paroxysmal atrial fibrillation and ischemic cardiomyopathy (EF 45%) who presented to [facility] ED for evaluation of intractable hiccups. Patient reports cardiac ablation on
05/17/2025 and work at 0300 Wednesday morning with hiccups and they have not stopped since. Patient was discharged home Wednesday. He reports calling Cardiology office who attempts to get Thorazine filled for home and was unable, they then called
in omeprazole and patient did not get prescription prior to showing up at hospital for evaluation. He denies any other concerns since going home. He does report some nausea associated with the hiccups today.
Medical History
Past Medical History
Past Medical History: Reports Other
Additional Past Medical History:
ASCVD
paroxysmal atrial fibrillation
ischemic cardiomyopathy (EF 45%)
Past Surgical History: Reports Other
Additional Past Surgical History:
PTCA with Stent
T&A
cardiac ablation
Social History
Tobacco: Non-smoker
Alcohol: Occasional
Drug: None
Personal:
Living: With Family
Family History
Family History: Not pertinent
Allergies / Home Medications
Allergies reflects when Allergies were last updated in [employer].
Home Medications with original date entered in [employer]
Allergy/Medication List:
Allergies
Allergy/AdvReac Type Severity Reaction Status Date / Time
shrimp Allergy Itching Verified 05/22/25 16:39
Sulfa (Sulfonamide Allergy Rash Verified 05/22/25 16:39
Antibiotics)
Home Medications
aspirin 81 mg chewable tablet 81 mg PO DAILY 04/28/18
omega-3 acid ethyl esters 1 gram capsule (Lovaza) 2 cap PO BID Supplement 01/23/22
apixaban 5 mg tablet (Eliquis) 5 mg PO BID Blood Clot Prevention/Tx 05/13/25
atorvastatin 80 mg tablet 80 mg PO HS High Cholesterol 05/13/25
ezetimibe 10 mg tablet 10 mg PO DAILY High Cholesterol 05/13/25
lisinopril 2.5 mg tablet 2.5 mg PO DAILY #30 tabs 05/15/25
metoprolol succinate 50 mg tablet,extended release 24 hr 75 mg (1.5 x 50 mg) PO BID #60 tabs 05/15/25
dapagliflozin propanediol 10 mg tablet (Farxiga) 10 mg PO DAILY Ischemic cardiomyopathy #30 tabs 05/18/25
omeprazole 40 mg capsule,delayed release 40 mg PO DAILY 05/22/25
Review of Systems
-
History Source: Patient
Constitutional: Denies Fever or Chills
EENT: Reports Other (intractable hiccups )
Respiratory: Reports Trouble Breathing (some shortness of breath from hiccups ); Denies Cough or Hemoptysis
Cardiac: Denies Chest Pain, Diaphoresis, Palpitations or Syncope
Abdomen/GI: Reports Nausea; Denies Abdominal Pain, Vomiting or Diarrhea
: Denies Dysuria, Frequency or Urgency
Musculoskeletal: Denies Edema
Skin: Denies Rash
Neurological: Denies Dizzy, Weakness or Numbness
Physical Exam
Vital Signs
Vital Signs
Temp Pulse Resp BP Pulse Ox
98.2 F 74 13 127/82 98
05/22/25 16:35 05/22/25 19:00 05/22/25 19:00 05/22/25 18:00 05/22/25 18:45
Physical Exam
General: Well Developed, Well Nourished, No Apparent Distress, Conversant and Obese
HEENT: NormoCephalic, Moist mucous membranes, Atraumatic and Other (hiccups )
Respiratory: Clear; No Non Labored Respirations
Cardiac: S1/S2 and Regular Rhythm; No Murmur, Rub or Gallop
Breast: No Deferred by me
GI: Soft, Non Tender, Non Distended and Normal Bowel Sounds; No Organomegaly
Rectal: Deferred by Provider
Genito-urinary: No Deferred by me
Musculoskeletal: No Clubbing, No Cyanosis and No Edema
Skin: IV/Catheter Site; No Warm or Rash
Neuro: Awake, AO x 3 and Nonfocal/grossly intact
Hematologic/Lymphatic: No Lymphadenopathy
Psych: Calm and Intact Judgment/Insight
Laboratory Results
-
05/22/25 16:50
05/22/25 16:50
Laboratory Results
Total Bilirubin 1.9 mg/dl (0.2-1.3) H 05/22/25 16:50
AST 29 U/L (17-59) 05/22/25 16:50
ALT 33 U/L (0-50) 05/22/25 16:50
Alkaline Phosphatase 85 U/L (38-126) 05/22/25 16:50
Troponin I 0.144 ng/ml H* 05/22/25 16:50
Data Reviewed
-
Diagnostic Radiology: Report Reviewed by me (CXR: No acute cardiopulmonary abnormality.)
Medical Tests (Nuc Med, Echo, EKG etc): Report Reviewed by me (EKG: SINUS BRADYCARDIA LEFT ANTERIOR FASCICULAR BLOCK)
Lab Data: Labs Reviewed by me (trop 0.144)
Impression/Plan
-
IMPRESSION/PLAN:
#intractable hiccups
CXR: No acute cardiopulmonary abnormality.
EKG: SINUS BRADYCARDIA
LEFT ANTERIOR FASCICULAR BLOCK
- Admit to telemetry
- IV Thorazine
- supportive care
#elevated troponin
Trop 0.144
denies chest pain
- Consult cardiology
- patient 5 days post cardiac ablation
- trend troponin
#ASCVD
- continue aspirin, atorvastatin and ezetimibe
#paroxysmal atrial fibrillation
- continue Eliquis and metoprolol
#ischemic cardiomyopathy (EF 45%)
- continue Farxiga
- daily weights
- I & Os
Code status: full code
DVT prophylaxis: Eliquis
[2025-05-22] MEDS: THORAZINE 51 MG IV (20:00)
--- NOTE | 2025-05-22 20:26 | W.PN.UPDATE ---
Update Note
Progress Note Update
This is a 64-year-old male with past medical history of ischemic cardiomyopathy, atrial fibrillation status post anticoagulation was recently status post ablation about 6 days ago presenting to the emergency department with intractable hiccups that
started the day following the ablation. He denies having any chest pain. He denies any nausea vomiting or diaphoresis. He denies any shortness of breath or dyspnea on exertion. He denies orthopnea or PND. He denies having any palpitations
lightheadedness or dizziness. He denies any syncope. He denies any abdominal pain diarrhea fevers or chills.
Status post ablation he has been doing well with continuation of his usual medications and no acute changes.
In the emergency department he is blood pressure was 115/67 with a pulse rate of 56 and was satting 100% on room air.
CBC unremarkable, electrolytes BUN/creatinine within normal. Chest x-ray shows no acute findings on the lung parenchyma or cardiac silhouette. His ECG shows a sinus bradycardia at 55 with left anterior fascicular block which is unchanged from
prior. His troponin is elevated at 0.1.
Assessment and plan
Intractable hiccups suspect secondary to possibly pericardial irritation from ablation with, rule out ischemic component. Although patient has no other signs of ischemia.
- Admit to telemetry observation
- Trend troponin every 6 hours
- Continue statin, ezetimibe and Eliquis
- Continue metoprolol succinate twice daily
- Continue with lisinopril for now
- Continue Farxiga
- Symptomatic treatment for hiccups with Thorazine for now
-Continue PPI with as needed H2 blockade
- Hold off on echocardiogram unless troponin rising
- Cardiology consult for elevated troponin
DVT prophy�on Eliquis
CODE STATUS�full code
[2025-05-22] MEDS: TOPROL XL 75 MG PO (22:30)
[2025-05-22] MEDS: ELIQUIS 5 MG PO (22:30)
[2025-05-22] MEDS: LIPITOR 80 MG PO (22:30)
--- NOTE | 2025-05-22 22:46 | TRANSFER ---
Patient received as transfer from ED. Ambulated to stretcher. Obtained height and weight. at bedside. Admission completed, see worklist. First troponin drawn and sent. Vital signs obtained. Call carrion within reach. Patient and spouse oriented to
room and unit. Patient and spouse refused heart failure booklet. Care ongoing.
[2025-05-22 23:05] LABS: Troponin I 0.117 ng/ml
[2025-05-23] VITALS (8 sets, daily range): BP systolic 105–141; BP diastolic 61–80; BMI 35.7
--- NOTE | 2025-05-23 00:11 | PTCARENOTE ---
Assumed care of pt at ~2300. pt resting in bed, at bedside. SB on tele, HR in the 50's. pt denies any CP or SOB, states 'it feels like I need to burp.' Hiccups are constant. CHF booklet and information provided to pt and . EKG obtained and
pt informed of plan of care. Urinal at bedside and call carrion within reach.
[2025-05-23] MEDS: ZOFRAN 4 MG IV (01:47)
[2025-05-23 02:21] LABS: Troponin I 0.113 ng/ml
[2025-05-23] MEDS: THORAZINE 51 MG IV ×3 (03:51→21:19)
--- NOTE | 2025-05-23 05:16 | PTCARENOTE ---
~0200 pt c/o nausea and requesting PRN Zofran. Administered and pt reports relief.
~0400 scheduled Thorazine administered--see MAR for further details. pt reports relief of hiccups for about 30-45 mins.
--- NOTE | 2025-05-23 07:45 | W.PN.HOSP.TC ---
Today's Communication/Plan
-
see PN
Assessment / Plan
Assessment / Plan
64yo M with PMHX of CAD, ischemic CM, Afib s/p ablation 05/17/25 developed hiccups at night after the procedure which did not subside, associated with feeling f acid reflux, nausea and 1 episode of vomiting on the day of admission.
A/P
#Intractable hiccups
since started after procedure - concern for complications
R/O esophageal damage, pericardial effusion with CT chest is reasonable, IVF bolus to decrease chance of contrast-induced nephropathy
cannot exclude damage to phrenic nerve
check ESR/CRP
Neurontin, Thorazine
#Elevated troponin
#AFIB, paroxysmal
no chest pain, troponin decreasing 0.144-0.117-0.113
EKG with SR, no ST changes or TWI concerning for ACS
cardiology consult
telemetry, cont rate and rhythm control, patient remains in SR
#Mild bilirubinemia
check direct bili, LDH, retics
#Ischemic CM
#GERD
#Essential HTN
cont home meds
DVT ppx Eliquis
Full code
I have spent at least 58min reviewing chart, test results, communication with consultants, and providing direct patient care
Anticipated Discharge: 24 - 48 hours
Subjective/Interval History
-
Date of Service: May 23, 2025
Objective Data
-
Vital Signs:
Vital Signs
Temp Pulse Resp BP Pulse Ox
98.2 F 58 20 121/78 97
05/23/25 07:26 05/23/25 06:00 05/23/25 07:26 05/23/25 04:47 05/23/25 07:26
I&O
05/22/25 05/23/25 05/24/25
06:59 06:59 06:59
Intake Total 291 / 291
Balance 291 / 291
Review of Systems
-
History Source: Patient
All other systems: Reviewed and negative
Abdomen/GI: Reports Nausea, Vomiting and Indigestion
Physical Exam
-
General: No Apparent Distress and Comfortable
HEENT: Normocephalic, Atraumatic and Moist Mucous Membranes
Respiratory: Clear to Auscultation
Cardiac: Regular Rhythm
GI: Soft, Nontender and Nondistended
Musculoskeletal: No Clubbing, No Cyanosis and No Edema
Neuro: Awake, Alert, Oriented and AO x 3
Psych: Calm
[2025-05-23] MEDS: PROTONIX 40 MG PO (08:30)
[2025-05-23] MEDS: ZESTRIL 2.5 MG PO (08:30)
[2025-05-23] MEDS: NSS 500 IV (08:31)
[2025-05-23] MEDS: NEURONTIN 100 MG PO ×3 (08:31→22:07)
[2025-05-23] MEDS: LOW STRENGTH ASPIRIN 81 MG PO (08:31)
[2025-05-23] MEDS: FARXIGA 10 MG PO (08:31)
[2025-05-23] MEDS: ELIQUIS 5 MG PO ×2 (08:31→21:20)
[2025-05-23] MEDS: ZETIA 10 MG PO (08:31)
[2025-05-23] MEDS: TOPROL XL 75 MG PO (08:32)
[2025-05-23] MEDS: FLEXERIL 10 MG PO ×2 (10:21→21:20)
[2025-05-23] MEDS: CARAFATE 1 GRAM PO ×3 (10:23→22:07)
[2025-05-23 10:45] LABS: Reticulocyte Count 2.7 % (0.4-2.8)
[2025-05-23 10:58] LABS: LDH 219 U/L (120-246)
--- NOTE | 2025-05-23 11:07 | CON.GI ---
Consultation
-
Date/Time Consultation Performed: 05/23/25
Performing Provider: Raphael Bowles MD
Reason for Consultation: Hiccups, esophagitis
Medical History
Chief Complaint / HPI
Chief Complaint: Hiccups
History of Present Illness:
The patient is a 64-year-old male with past medical history as noted presents with intractable hiccups. He was recently admitted for ablation for A-fib which was uncomplicated. He woke up on Wednesday morning acutely at 3 AM with hiccups which have
been persistent since. He has had some heartburn around this time as well and some episodes of vomiting, though denies any dysphagia or odynophagia. He has had typical heartburn symptoms intermittently over the past, and occasionally takes an
acids though nothing frequently. He denies any dysphagia or odynophagia in the past. He is never had an endoscopy or colonoscopy. He currently denies any chest pain or shortness of breath. His hiccups are definitely positional, when he is laying
on his left is okay. His hiccups are not worse after eating, again denies any dysphagia.
Past Medical History
Past Medical History: Other (A-fib, ischemic cardiomyopathy with EF of 45%, coronary disease status post stent, status postcardiac ablation, high cholesterol, arthritis, neuropathy)
Past Surgical History: Other (T&A)
Social History
Tobacco: Non-Smoker
Alcohol: None
Family History
Family History: Reviewed & Not Pertinent
Allergies / Home Medications
Allergy/AdvReac Type Severity Reaction Status Date / Time
shrimp Allergy Itching Verified 05/22/25 16:39
Sulfa (Sulfonamide Allergy Rash Verified 05/22/25 16:39
Antibiotics)
�Medication �Instructions �Recorded
aspirin 81 mg chewable tablet 81 mg PO DAILY 04/28/18
omega-3 acid ethyl esters 1 gram 2 cap PO BID Supplement 01/23/22
capsule (Lovaza)
apixaban 5 mg tablet (Eliquis) 5 mg PO BID Blood Clot 05/13/25
Prevention/Tx
atorvastatin 80 mg tablet 80 mg PO HS High Cholesterol 05/13/25
ezetimibe 10 mg tablet 10 mg PO DAILY High Cholesterol 05/13/25
lisinopril 2.5 mg tablet 2.5 mg PO DAILY #30 tabs 05/15/25
metoprolol succinate 50 mg 75 mg (1.5 x 50 mg) PO BID #60 tabs 05/15/25
tablet,extended release 24 hr
dapagliflozin propanediol 10 mg 10 mg PO DAILY Ischemic 05/18/25
tablet (Farxiga) cardiomyopathy #30 tabs
omeprazole 40 mg capsule,delayed 40 mg PO DAILY Gastrointestinal 05/22/25
release Issue
Review of Systems
-
All other systems: A 12 pt ROS was Negative except as stated above in HPI
Vital Signs
Temp Pulse Resp BP Pulse Ox
98.2 F 65 20 141/80 97
05/23/25 07:26 05/23/25 08:00 05/23/25 07:26 05/23/25 08:32 05/23/25 08:38
Physical Exam
Exam
General: NAD
HEENT: MMM, anicteric, no lymphadenopathy
Heart: Regular, no murmurs
Lungs: CTA bilaterally
Abdomen: normal bowel sounds, soft, no tenderness, no rebound or guarding, no masses, bruits or ascites
Extremeties: no edema
Skin: no rashes
Results
WBC 8.2 10^3/uL (4.8-10.8) 05/22/25 16:50
Hgb 14.0 g/dL (13.0-18.0) 05/22/25 16:50
Hct 40.3 % (39.0-52.0) 05/22/25 16:50
MCV 92.4 fL (80.0-94.0) 05/22/25 16:50
Plt Count 181 10^3/uL (130-400) 05/22/25 16:50
Absolute Neuts (auto) 5.2 10^3/uL (1.4-6.5) 05/22/25 16:50
Sodium 137 mmol/L (135-145) 05/22/25 16:50
Potassium 5.1 mmol/L (3.5-5.1) 05/22/25 16:50
Chloride 103 mmol/L (98-107) 05/22/25 16:50
Carbon Dioxide 29 mmol/L (22-30) 05/22/25 16:50
BUN 15 mg/dl (9-20) 05/22/25 16:50
Creatinine 1.1 mg/dL (0.7-1.3) 05/22/25 16:50
Calcium 10.1 mg/dl (8.4-10.2) 05/22/25 16:50
Total Bilirubin 1.9 mg/dl (0.2-1.3) H 05/22/25 16:50
AST 29 U/L (17-59) 05/22/25 16:50
ALT 33 U/L (0-50) 05/22/25 16:50
Alkaline Phosphatase 85 U/L (38-126) 05/22/25 16:50
Diagnostic Image Results:
CT chest:
IMPRESSION:
No CT evidence for an acute cardiopulmonary process.
Circumferential wall thickening of the mid to distal esophagus, most suspicious for esophagitis. A follow-up upper endoscopy could be considered if not recently performed.
Prior GI Procedures:
EGD:
Colonoscopy:
Assessment / Plan
-
1. Hiccups: Temporally related to his ablation, likely more related to inflammation from his ablation, especially given that his hiccups are more positional. He did have some noted esophageal thickening on CT scan, and has had some increased
heartburn, though no dysphagia or odynophagia. It is possible that this is related though again seems a bit less likely. At this point would continue PPI and Carafate. We discussed eventual endoscopy given thickening noted on CT scan, though
again other etiologies including malignancy seem very unlikely, and this can be done as an outpatient. He has received Eliquis this admission including this morning. His symptoms are not improving may consider barium esophagram tomorrow.
-
-
Thank you for consultation and allowing me to participate in the patient's care. Please call the telephone diaphragm assembler GI physician during the after hours with any questions or concerns.
[2025-05-23 11:14] LABS: C-Reactive Protein < 5.00 mg/L (0.0-10.00)
--- NOTE | 2025-05-23 15:15 | CM ---
spoke to pt in room he is prev indep, lives with his in a 2 story home with 8 steps to enter. he denies any dc plannig needs or dme's. [facility].
--- NOTE | 2025-05-23 19:28 | PTCARENOTE ---
Pt with continued hiccups this morning with brief periods not hiccupping when he lay on his left side. Pt had CT scan chest. Pt able to sleep all afternoon without hiccups after a combination of thorazine,flexeril and carafate. Pt reported
occasional nausea but was able to eat dinner. Telemetry shows sinus rhythm.
[2025-05-23] MEDS: TOPROL XL PO (22:04)
[2025-05-23] MEDS: LIPITOR 80 MG PO (22:07)
[2025-05-24] VITALS (7 sets, daily range): BP systolic 96–132; BP diastolic 65–80; BMI 35.7
[2025-05-24] MEDS: THORAZINE 51 MG IV ×2 (04:06→12:01)
--- NOTE | 2025-05-24 07:43 | W.PN.EPS ---
Today's Communication / Plan
-
- D/c Metoprolol 50 BID and switch to Diltiazem 60 mg QID.
Impression / Plan
-
64-year-old man with a history of ischemic cardiomyopathy (EF 40%, 11/13), paroxysmal atrial fibrillation and persistent atrial flutter with recurrent symptoms s/p AF/Flutter ablation on 05/17/25 presented with intractable hiccups
Hiccups
- Unclear etiology
- No obvious complication from the ablation.
- Phrenic nerve injury can cause transient hiccups but he is in intractable phase. The phrenic nerve injury also causes diaphragm elevation that is not present
- The esophagus injury is noted in radiofrequency ablation with posterior wall ablation. He had no posterior wall ablation and had pulsed field ablation making esophageal injury less likely.
- The timing of his hiccups are curious and as it started 2 days after the ablation / GA / intubation. it could be related to the ablation
- CTI ablation can cause irritation to diaphragm but with pulsed field, it is expected to have immediate affect. However, 2 days after the ablation is quite a remarkable coincidence, hence there is a chance that this is related to the ablation.
- Unlike radiofrequency where the lesion can progress after the ablation is finished and hence can cause injury 1 to 2 days after the ablation, pulsed field energy is less likely to cause injury after the ablation is finished. However, this cannot
be a rule.
-Another possibility is the effect of amiodarone that can affect the nerves as well. We will discontinue amiodarone at this time.
� Possibility of esophageal spasm is more likely. Agree with IV Thorazine and addition of muscle relaxants/anxiolytics.
- Will switch Metoprolol to Diltiazem for help with esophhageal spasms.
� Appreciate GI input
Atrial fibrillation/ flutter
-Patient was in intractable atrial fibrillation flutter and could not be sent home.
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
� Amiodarone was ineffective hence underwent A-fib flutter ablation.
� Status post pulsed field ablation on 05/17/2025 that included CTI flutter line and pulmonary vein isolation using Dimple pulse.
� No sign of complication from the procedure itself. Groins are normal. Diaphragms are normal on the chest x-ray.
-No need to trend troponin. Mild rise in troponin is expected after ablation.
Cardiomyopathy
� LVEF 40 to 45% on TTE with tachycardia induced cardiomyopathy and ischemic component with septal hypokinesis.
� Continue aspirin, statin, metoprolol, and Zetia.
- We will also discontinue lisinopril at this time as this is the only other medicine added which might be playing a role with the hiccups and cough.
Chief Complaint / Past History
Chief Complaint / History
Date of Service: May 24, 2025
Interval History:
Patient Hiccups disappeared yesterday but this late AM he is again having it.
Physical Exam
Allergies
Allergy/AdvReac Type Severity Reaction Status Date / Time
shrimp Allergy Itching Verified 05/22/25 16:39
Sulfa (Sulfonamide Allergy Rash Verified 05/22/25 16:39
Antibiotics)
Vital Signs / Results
Temp Pulse Resp BP Pulse Ox
97.7 F 56 14 96/67 95
05/24/25 07:14 05/24/25 07:14 05/24/25 07:14 05/24/25 04:18 05/24/25 07:14
05/22/25 16:50
05/22/25 16:50
Sodium 137 mmol/L (135-145) 05/22/25 16:50
Potassium 5.1 mmol/L (3.5-5.1) 05/22/25 16:50
Chloride 103 mmol/L (98-107) 05/22/25 16:50
Carbon Dioxide 29 mmol/L (22-30) 05/22/25 16:50
Total Bilirubin 1.9 mg/dl (0.2-1.3) H 05/22/25 16:50
Direct Bilirubin 0.1 mg/dl (0.0-0.4) 05/23/25 10:16
AST 29 U/L (17-59) 05/22/25 16:50
ALT 33 U/L (0-50) 05/22/25 16:50
Alkaline Phosphatase 85 U/L (38-126) 05/22/25 16:50
Troponin I Cancelled 05/23/25 04:02
Total Protein 6.9 g/dl (6.3-8.2) 05/22/25 16:50
Albumin 4.4 g/dl (3.5-5.0) 05/22/25 16:50
Physical Exam
General: Well Developed, Well Nourished and No Apparent Distress
HEENT: Normocephalic and Moist Mucous Membranes
Respiratory: Clear, Rhonchi and Non Labored Respirations
Cardiac: S1/S2 and Regular Rhythm
GI: Soft, Non Tender, Non Distended and Normal Bowel Sounds
Musculoskeletal: No Clubbing, No Cyanosis and No Edema
Skin: Warm and Dry
Neuro: Awake, Alert, Oriented and AO x 3
Data Reviewed
-
EKG: Tracing Personally Visualized and interpreted and Report Reviewed by me
Radiology: Image Personally Visualized and interpreted and Report Reviewed by me
Labs: Labs Reviewed by me and Discussed with Physician
Old Records: Reviewed
[2025-05-24] MEDS: PROTONIX 40 MG PO ×2 (08:39→19:38)
[2025-05-24] MEDS: ZETIA 10 MG PO (08:39)
[2025-05-24] MEDS: FARXIGA 10 MG PO (08:39)
[2025-05-24] MEDS: ELIQUIS 5 MG PO ×2 (08:39→19:38)
[2025-05-24] MEDS: NEURONTIN 100 MG PO (08:39)
[2025-05-24] MEDS: FLEXERIL 10 MG PO (08:40)
[2025-05-24] MEDS: CARAFATE 1 GRAM PO ×4 (08:40→22:40)
[2025-05-24] MEDS: LOW STRENGTH ASPIRIN 81 MG PO (08:40)
[2025-05-24] MEDS: TOPROL XL 50 MG PO (08:40)
--- NOTE | 2025-05-24 09:10 | W.PN.GI.CBS2 ---
Today's Communication / Plan
-
Monitor sx this AM, if recurance, patient to notify RN who will then reach out to GI and I will order Baclofen
Assessment / Plan
-
1. Hiccups: Temporally related to his ablation, suspect phrenic nerve irritation.
-improved this AM
-discussed pharmacologic intervention with him, already on PPI + carafate, additional medications that can help with hiccups include baclofen, gabapentin and thorazine
-he would like to see how his symptoms are over the next few hours to decide if he would like to try another medication, he will notify his RN if he would like me to start something, would favor starting baclofen
2. Abnormal CT scan, esophageal thickening
-currently on PPI + carafate
-mild heartburn, no dysphagia, odynophagia
-hold off on barium esophagram, plan for outpatient workup for EGD with Dr. Bowles, as discussed yesterday
Subjective
Subjective
Date of Service: May 24, 2025
Patient seen in follow-up, at bedside. Reports mild improvement in hiccups. He took his medications this morning and currently does not have hiccups, he feels they will return soon. He is nervous about persistence of sx due to his job-- he is a
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
Objective
Data Reviewed
Laboratory Data:
Laboratory Results
05/22/25 16:50
05/22/25 16:50
Laboratory Results
Total Bilirubin 1.9 mg/dl (0.2-1.3) H 05/22/25 16:50
AST 29 U/L (17-59) 05/22/25 16:50
ALT 33 U/L (0-50) 05/22/25 16:50
Alkaline Phosphatase 85 U/L (38-126) 05/22/25 16:50
Vital Signs and I&O:
Vital Signs
Temp Pulse Resp BP Pulse Ox
97.7 F 68 14 110/66 95
05/24/25 07:14 05/24/25 08:40 05/24/25 07:14 05/24/25 08:40 05/24/25 08:46
I&O
05/23/25 05/24/25 05/25/25
06:59 06:59 06:59
Intake Total 291 / 291 910 / 910
Output Total 475 / 475
Balance 291 / 291 435 / 435
Physical Exam
Physical Exam
HEENT: Anicteric and Moist mucous membranes
GI: Soft, Non Distended and Normal Bowel Sounds
--- NOTE | 2025-05-24 09:34 | W.PN.HOSP.TC ---
Today's Communication/Plan
-
Hiccups improving - baclofen PRN
possible D.C today
Assessment / Plan
Assessment / Plan
64yo M with PMHX of CAD, ischemic CM, Afib s/p ablation 05/17/25 developed hiccups at night after the procedure which did not subside, associated with feeling f acid reflux, nausea and 1 episode of vomiting on the day of admission.
A/P
#Intractable hiccups
since started after procedure - concern for complications
R/O esophageal damage, pericardial effusion with CT chest is reasonable, IVF bolus to decrease chance of contrast-induced nephropathy
cannot exclude damage to phrenic nerve
ESR minimally elevated
CRP WNL
Neurontin, Thorazine
Cardio stopped new meds as can also be potential offenders, and also does not think that its phrenic nerve damage
CT chest: Circumferential wall thickening of the mid to distal esophagus, most suspicious for esophagitis
#Circumferential esophageal thickening, possible esophagitis
GI consult
also can be a reason for hiccups
outpatient EDG
Baclofen PRN
PPI, carafate
#Elevated troponin
#AFIB, paroxysmal
no chest pain, troponin decreasing 0.144-0.117-0.113
EKG with SR, no ST changes or TWI concerning for ACS
cardiology consult
telemetry, cont rate and rhythm control, patient remains in SR
#Mild indirect bilirubinemia
most liekly gilbert with normal LDH and retics
#Ischemic CM
#GERD
#Essential HTN
cont home meds
DVT ppx Eliquis
Full code
I have spent at least 51min reviewing chart, test results, communication with consultants, and providing direct patient care
Anticipated Discharge: Within 24 hours
Subjective/Interval History
-
Date of Service: May 24, 2025
Objective Data
-
Vital Signs:
Vital Signs
Temp Pulse Resp BP Pulse Ox
97.7 F 68 14 110/66 95
05/24/25 07:14 05/24/25 08:40 05/24/25 07:14 05/24/25 08:40 05/24/25 08:46
I&O
05/23/25 05/24/25 05/25/25
06:59 06:59 06:59
Intake Total 291 / 291 910 / 910
Output Total 475 / 475
Balance 291 / 291 435 / 435
Review of Systems
-
History Source: Patient
Constitutional: Reports No Symptoms
Physical Exam
-
General: No Apparent Distress
HEENT: Normocephalic
Cardiac: Regular Rhythm
GI: Soft, Nontender and Nondistended
Musculoskeletal: No Clubbing, No Cyanosis and No Edema
Neuro: Awake, Alert, Oriented and AO x 3
Psych: Calm
[2025-05-24] MEDS: LIORESAL 2.5 MG PO (10:42)
--- NOTE | 2025-05-24 14:18 | W.DCSUMMARY ---
Discharge Summary
Discharge Data
Date of Admission: 05/24/25
Date of Discharge: 05/25/25
-
Pending Results: No
Hospital Course
64yo M with PMHX of CAD, ischemic CM, Afib s/p ablation 05/17/25 developed hiccups at night after the procedure which did not subside, associated with feeling f acid reflux, nausea and 1 episode of vomiting on the day of admission. Hiccups improved.
Mostly happening in horizontal position and with finding of esophagitis - most likely GI related (GERD). EDG as outpatient, started PPI, Carafate, hiccups subsided and patient medically stable for d/c home as agreed with GI and cardiology.
Esophogram with Persistent segment of some mild slightly irregular narrowing of the distal thoracic esophagus. Outpatient EGD recommended, referral provided. Cardiology stopped new medications as they might be an offenders. Started on Diltiazem as
per industrial ecologist. Echo with same EF 45% as of 05/14/25, but in SR without other changes. Medically stable for d/c home
I have spent at least 55min reviewing chart, test results, and providing direct patient care
Patient wss managed for:
#Intractable hiccups
#Circumferential esophageal thickening, possible esophagitis
#Elevated troponin
#AFIB, paroxysmal
#Mild indirect bilirubinemia
#Ischemic CM
#GERD
#Essential HTN
Discharge Plan
-
Patient Disposition: Home (Routine Discharge)
Discharge Diagnosis/Procedures: Intractable hiccups
Diet: Low Cholesterol
Driving Restrictions: No driving for 24 hours
Referrals:
Santi Bowles MD [Active, Gastroenterology] - in one to two weeks
Amanda Da Silva MD [Active, Cardiology] - in one week
NONE,* [Family Provider, Internal Medicine]
Prescriptions:
New
sucralfate 1 gram Tablet
1 g PO ACHS Qty: 180 0RF
chlorpromazine 25 mg tablet
50 mg PO .q8h prn PRN (Reason: hiccups) Qty: 20 0RF
diltiazem HCl 240 mg Capsule,Extended Release 24hr
240 mg PO DAILY Qty: 30 0RF
Continued
aspirin 81 MG tablet,chewable
81 mg PO DAILY 0RF
atorvastatin 80 mg Tablet
80 mg PO HS
ezetimibe 10 mg Tablet
10 mg PO DAILY
Eliquis 5 mg Tablet
5 mg PO BID
dapagliflozin propanediol [Farxiga] 10 mg tablet
10 mg PO DAILY Qty: 30 0RF
omeprazole 40 mg Capsule,Delayed Release(Dr/Ec)
40 mg PO DAILY
Discontinued
omega-3 acid ethyl esters [Lovaza] 1 GM capsule
2 cap PO BID
lisinopril 2.5 mg Tablet
2.5 mg PO DAILY Qty: 30 0RF
metoprolol succinate 50 mg Tablet Extended Release 24 Hr
75 mg PO BID Qty: 60 0RF
Discharge Orders:
Discharge Patient (As Directed); Ordered 05/25/25
Ordered By: Andrew Jessica
Care Plan Goals
Care Plan Goals:
Problem: Readiness for enhanced knowledge related to diagnosis and treatment plan
Goal: Understand your diagnosis and treatment plan needs, including medications if applicable.
Instructions: Know your diagnosis, underlying causes and treatment plan options, including medications if applicable. Consult with your health care team to learn about your diagnosis and treatment plan, including medications if applicable.
Discharge Date and Time
Print Language: TOGOLESE
[2025-05-24] MEDS: CARDIZEM 60 MG PO ×3 (14:58→22:40)
--- NOTE | 2025-05-24 16:27 | W.PN.UPDATE ---
Update Note
Progress Note Update
Mild improvement in hiccups throughout the day, given 1x dose of baclofen. Hiccups only in supine position. Started on chlorpromazine prn. He will remain in hospital overnight for cardiac monitoring on new rate control, will plan to move forward
with barium esophagram in AM. GI to see in follow-up tomorrow following esophagram.
GI office aware of outpatient f/u upon d/c and will reach out to patient to schedule.
--- NOTE | 2025-05-24 19:44 | PTCARENOTE ---
Pt continued with hiccups on and off throughout the day, they seem present when he is lying flatter, better when sitting. Pt was able to eat one meal today. Plan for barium esophagram on 05/25. Pt also started on diltiazem per , he remains
in sinus rhythm at a rate of 50-60's.
[2025-05-24] MEDS: THORAZINE 25 MG PO (20:03)
[2025-05-24] MEDS: LIPITOR 80 MG PO (22:40)
[2025-05-25 04:55] VITALS: BP 110/65
[2025-05-25 06:38] VITALS: BMI 35.8
[2025-05-25 07:33] VITALS: BP 110/63
--- NOTE | 2025-05-25 07:55 | PTCARENOTE ---
Assumed care of pt from prev nsg shift; Pt AAOx3 w/no c/o CP or SOB. Pt w/VSS w/HR in the 50's & BP 110/63. Pt is SB on telemetry monitoring. Pt still continues w/hiccups; PRN PO thorazine administered as ordered. Pt NPO awaiting testing today.
at bedside. Plan of care ongoing.
--- NOTE | 2025-05-25 07:55 | W.PN.EPS ---
Today's Communication / Plan
-
- ECHO today before his discharge.
� IV Thorazine and addition of muscle relaxants/anxiolytics. Change IV to PO 50 mg tid 3 days at discharge
- Metoprolol switched to Diltiazem for help with esophhageal spasms.
Impression / Plan
-
64-year-old man with a history of ischemic cardiomyopathy (EF 40%, 11/13), paroxysmal atrial fibrillation and persistent atrial flutter with recurrent symptoms s/p AF/Flutter ablation on 05/17/25 presented with intractable hiccups
Hiccups
- Unclear etiology
- No obvious complication from the ablation.
- Phrenic nerve injury can cause transient hiccups but he is in intractable phase. The phrenic nerve injury also causes diaphragm elevation that is not present
- The esophagus injury is noted in radiofrequency ablation with posterior wall ablation. He had no posterior wall ablation and had pulsed field ablation making esophageal injury less likely.
- The timing of his hiccups are curious and as it started 2 days after the ablation / GA / intubation. it could be related to the ablation
- CTI ablation can cause irritation to diaphragm but with pulsed field, it is expected to have immediate affect. However, 2 days after the ablation is quite a remarkable coincidence, hence there is a chance that this is related to the ablation.
- Unlike radiofrequency where the lesion can progress after the ablation is finished and can cause injury 1 to 2 days after the ablation, pulsed field energy is less likely to cause injury after the ablation is finished. However, this cannot be a
rule.
-Another possibility is the effect of amiodarone that can affect the nerves as well. Amiodarone discontinued.
- Will obtain ECHO today before his discharge.
� Possibility of esophageal spasm is more likely. Agree with IV Thorazine and addition of muscle relaxants/anxiolytics.
- Metoprolol switched to Diltiazem for help with esophhageal spasms.
� Appreciate GI input
Atrial fibrillation/ flutter
-Patient was in intractable atrial fibrillation flutter and could not be sent home.
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
� Amiodarone was ineffective hence underwent A-fib flutter ablation.
� Status post pulsed field ablation on 05/17/2025 that included CTI flutter line and pulmonary vein isolation using Dimple pulse.
� No sign of complication from the procedure itself. Groins are normal. Diaphragms are normal on the chest x-ray.
-No need to trend troponin. Mild rise in troponin is expected after ablation.
Cardiomyopathy
� LVEF 40 to 45% on TTE with tachycardia induced cardiomyopathy and ischemic component with septal hypokinesis.
� Continue aspirin, statin, metoprolol, and Zetia.
- We will also discontinue lisinopril at this time as this is the only other medicine added which might be playing a role with the hiccups and cough.
Chief Complaint / Past History
Chief Complaint / History
Date of Service: May 25, 2025
Interval History:
Hiccups are intermittently present. No more arrhythmia noted.
Past Electrophysiology History: Atrial Fibrillation and Atrial Flutter
Physical Exam
Allergies
Allergy/AdvReac Type Severity Reaction Status Date / Time
shrimp Allergy Itching Verified 05/22/25 16:39
Sulfa (Sulfonamide Allergy Rash Verified 05/22/25 16:39
Antibiotics)
Vital Signs / Results
Temp Pulse Resp BP Pulse Ox
98.4 F 56 20 110/63 95
05/25/25 07:34 05/25/25 07:33 05/25/25 07:34 05/25/25 07:33 05/25/25 07:34
05/22/25 16:50
05/22/25 16:50
Sodium 137 mmol/L (135-145) 05/22/25 16:50
Potassium 5.1 mmol/L (3.5-5.1) 05/22/25 16:50
Chloride 103 mmol/L (98-107) 05/22/25 16:50
Carbon Dioxide 29 mmol/L (22-30) 05/22/25 16:50
Total Bilirubin 1.9 mg/dl (0.2-1.3) H 05/22/25 16:50
Direct Bilirubin 0.1 mg/dl (0.0-0.4) 05/23/25 10:16
AST 29 U/L (17-59) 05/22/25 16:50
ALT 33 U/L (0-50) 05/22/25 16:50
Alkaline Phosphatase 85 U/L (38-126) 05/22/25 16:50
Troponin I Cancelled 05/23/25 04:02
Total Protein 6.9 g/dl (6.3-8.2) 05/22/25 16:50
Albumin 4.4 g/dl (3.5-5.0) 05/22/25 16:50
Physical Exam
General: Well Developed, Well Nourished and No Apparent Distress
HEENT: Normocephalic, Anicteric and Moist Mucous Membranes
Cardiac: S1/S2 and Regular Rhythm
GI: Soft, Non Tender, Non Distended and Normal Bowel Sounds
Musculoskeletal: No Clubbing, No Cyanosis and No Edema
Skin: Warm and Dry
Neuro: Awake, Alert, Oriented and AO x 3
Data Reviewed
-
EKG: Tracing Personally Visualized and interpreted and Report Reviewed by me
Labs: Labs Reviewed by me
Old Records: Reviewed
[2025-05-25] MEDS: CARAFATE 1 GRAM PO ×3 (08:53→16:57)
[2025-05-25] MEDS: LIORESAL 5 MG PO (08:53)
[2025-05-25] MEDS: CARDIZEM CD 240 MG PO (08:53)
[2025-05-25] MEDS: PROTONIX 40 MG PO (08:53)
[2025-05-25] MEDS: LOW STRENGTH ASPIRIN 81 MG PO (08:53)
[2025-05-25] MEDS: FARXIGA 10 MG PO (08:53)
[2025-05-25] MEDS: ZETIA 10 MG PO (08:53)
[2025-05-25] MEDS: THORAZINE 25 MG PO ×2 (08:53→17:48)
[2025-05-25] MEDS: ELIQUIS 5 MG PO (08:54)
--- NOTE | 2025-05-25 10:33 | W.PN.HOSP.TC ---
Today's Communication/Plan
-
Barium swallow and Echo today
Hiccups casing splitter, patient slep night, noted Thorazine increase by card.
Assessment / Plan
Assessment / Plan
64yo M with PMHX of CAD, ischemic CM, Afib s/p ablation 05/17/25 developed hiccups at night after the procedure which did not subside, associated with feeling f acid reflux, nausea and 1 episode of vomiting on the day of admission.
A/P
#Intractable hiccups
since started after procedure - concern for complications
R/O esophageal damage, pericardial effusion with CT chest is reasonable, IVF bolus to decrease chance of contrast-induced nephropathy
cannot exclude damage to phrenic nerve
ESR minimally elevated
CRP WNL
Neurontin, Thorazine
Cardio stopped new meds as can also be potential offenders, and also does not think that its phrenic nerve damage
CT chest: Circumferential wall thickening of the mid to distal esophagus, most suspicious for esophagitis
#Circumferential esophageal thickening, possible esophagitis
also can be a reason for hiccups
GI consult
outpatient EDG
PPI, carafate
Barium swallow
#Elevated troponin
#AFIB, paroxysmal
no chest pain, troponin decreasing 0.144-0.117-0.113
EKG with SR, no ST changes or TWI concerning for ACS
cardiology consult
telemetry, cont rate and rhythm control, patient remains in SR
Echo
#Mild indirect bilirubinemia
most liekly gilbert with normal LDH and retics
#Ischemic CM
#GERD
#Essential HTN
cont home meds
DVT ppx Eliquis
Full code
I have spent at least 38min reviewing chart, test results, communication with consultants, and providing direct patient care
Anticipated Discharge: Within 24 hours
Subjective/Interval History
-
Date of Service: May 25, 2025
Objective Data
-
Vital Signs:
Vital Signs
Temp Pulse Resp BP Pulse Ox
98.4 F 56 20 110/63 95
05/25/25 07:34 05/25/25 07:33 05/25/25 07:34 05/25/25 07:33 05/25/25 07:34
I&O
05/24/25 05/25/25 05/26/25
06:59 06:59 06:59
Intake Total 910 / 910 450 / 450
Output Total 475 / 475
Balance 435 / 435 450 / 450
Review of Systems
-
History Source: Patient
All other systems: Reviewed and negative
Constitutional: Reports Other (hiccups)
Physical Exam
-
General: No Apparent Distress
Neuro: Awake, Alert, Oriented and AO x 3
Psych: Calm
--- NOTE | 2025-05-25 10:37 | PTCARENOTE ---
Report called to 4E to [facility]. Pt transported to O/P radiology before transport to 4th floor. pvc monitor from 4E applied to pt prior to leaving the floor.
--- NOTE | 2025-05-25 11:50 | PTCARENOTE ---
pt transferred from IVU. report received from MARI Gamino. pt is AAO*3, Vss, room air. denies any pain. pt oriented to the room. call carrion within the reach. plan of care ongoin.
[2025-05-25 11:54] VITALS: BP 122/72
[2025-05-25 15:20] VITALS: BP 136/81
== END 2025-05-25 18:28 | disposition home or self-care (01) | DRG 92 ==
LOC: 4 EAST ACU 10:00
PROVIDERS: Emergency Medicine; Nurse Practitioner Family; ADMITTING PHYSICIAN Internal Medicine; ATTENDING PHYSICIAN Internal Medicine; EMERGENCY PHYSICIAN Emergency Medicine; OTHER PHYSICIAN Internal Medicine Gastroenterology
DX: G97.82 Other postprocedural complications and disorders of nervous system (principal); R17 Unspecified jaundice; Y83.8 Other surgical procedures as the cause of abnormal reaction of the patient, or of later complication, without mention of misadventure at the time of the procedure; Y92.9 Unspecified place or not applicable; K21.00 Gastro-esophageal reflux disease with esophagitis, without bleeding; R06.6 Hiccough; R06.02 Shortness of breath; E78.00 Pure hypercholesterolemia, unspecified; I25.5 Ischemic cardiomyopathy; F41.9 Anxiety disorder, unspecified; J98.6 Disorders of diaphragm; I10 Essential (primary) hypertension; I44.4 Left anterior fascicular block; I25.10 Atherosclerotic heart disease of native coronary artery without angina pectoris; E80.4 Gilbert syndrome; I48.0 Paroxysmal atrial fibrillation; I25.2 Old myocardial infarction; Z95.5 Presence of coronary angioplasty implant and graft; Z79.82 Long term (current) use of aspirin; Z79.01 Long term (current) use of anticoagulants; Z79.84 Long term (current) use of oral hypoglycemic drugs; Z88.2 Allergy status to sulfonamides; Z91.013 Allergy to seafood
CPT/HCPCS: 71045; 71260; 74221; 80053; 82248; 83615; 84484; 85025; 85045; 85652; 86140; 93005; 93308; 96374; 96375; 99285; Q9967